=== PATIENT | male | born 1945 | race Caucasian/White ===

== ENCOUNTER → 2020-01-19 12:04 | Outpatient (BNVA) | payer MEDICARE, SELFPAY | PROVIDERS: PCP Internal Medicine; Visit Provider Internal Medicine Cardiovascular Disease | DX: I25.10 Atherosclerotic heart disease of native coronary artery without angina pectoris (principal); I35.1 Nonrheumatic aortic (valve) insufficiency; I71.2 Thoracic aortic aneurysm, without rupture; Z79.82 Long term (current) use of aspirin; Z79.899 Other long term (current) drug therapy; Z95.5 Presence of coronary angioplasty implant and graft | CPT/HCPCS: 93005; 99212 ==

== ENCOUNTER → 2020-02-07 12:47 | Outpatient (REF) | payer MEDICARE, SELFPAY ==
--- NOTE | 2020-02-07 12:49 | CA_ITS ---
Transthoracic Echocardiogram Patient (Last, First, Middle): Tito Roque L Gender: Male Date of : 1945 Age: 75 Procedure Date: 02/07/2020 Procedure Type: Transthoracic Echocardiogram Location: OP Height: 172.72 cm Weight: 65.77 kg BSA: 1.78 m2 Heart Rate: bpm BP: 124 / 58 mmHg Help Desk Analyst: Referring MD: Francis Bell MD Symptoms: I35.1 - Nonrheumatic aortic (valve) insufficiency Study Quality: Fair ECG Rhythm: Sinus Conclusions: - The left ventricular systolic function is moderately decreased. The visually estimated ejection fraction is between 30-35%. - Globally hypokinetic with regional variation. The basal inferolateral segment is hypokinetic. The basal inferior segment is akinetic. - There is mild to moderate aortic valve regurgitation. - There is mild dilatation of the sinuses of Valsalva measuring 3.60 cm and mild dilatation of the ascending aorta measuring 4.20 cm. Findings Left Ventricle Normal left ventricular cavity size. There is mildly increased left ventricular wall thickness. The left ventricular systolic function is moderately decreased. The visually estimated ejection fraction is between 30 35%. There is evidence of regional wall motion abnormalities. E/E prime ratio is <8, consistent with normal filling pressures. Evidence suggests grade I (mild) diastolic dysfunction. Globally hypokinetic with regional variation. Wall Motion Rest Echo Findings The basal inferolateral segment is hypokinetic. The basal inferior segment is akinetic. Right Ventricle Normal right ventricular cavity size and systolic function. Atria The left atrium is mildly dilated. The right atrium is normal in size. Aortic Valve There is a normal trileaflet aortic valve. There is no aortic valve stenosis. There is mild to moderate aortic valve regurgitation. Mitral Valve There is mild mitral annular calcification. There is mild mitral valve regurgitation. There is no mitral valve stenosis. Pulmonic Valve The pulmonic valve was not well visualized. Tricuspid Valve Normal tricuspid valve structure. There is trace tricuspid valve regurgitation. The pulmonary artery systolic pressure is normal. Great Vessels There is mild dilatation of the sinuses of Valsalva measuring 3.60 cm and mild dilatation of the ascending aorta measuring 4.20 cm. Venous The inferior vena cava was not well visualized. Pericardium/Pleural There is no evidence of pericardial effusion. Prior Study Comparison Changes noted compared to prior study dated: 01/11/2019. LVEF is diminished. Measurements 2D Linear Measurements IVSd: 1.23 0.6-0.9/0.6-1.0 cm LVIDd: 4.80 3.9-5.3/4.2-5.9 cm LVIDd Index: 2.70 2.4-3.2/2.2-3.1 cm/m2 LVIDs: 2.97 2.0-3.6 cm LVPWd: 1.22 0.7-1.1 cm Ao Root: 3.50 2.1-3.5 cm LA Diam: 4.30 2.7-3.8/3.0-4.0 cm LAIDs Index: 2.42 1.5-2.3 cm/m2 LV Mass: 281.31 67-162/88-224 g LV Mass Index: 158.04 43-95/49-115 g/m2 LVOT Diam: 2.10 3.0+(-)1.3 cm 2D Systolic Function EF 4C: 33.80 >55% EF 2C: 27.10 >55% EF BiP: 29.30 >55% Mitral Valve MV Pk E: 0.40 MV PK A: 0.99 MV Decel Time: 120.00 E/A: 0.40 E'Lateral: 4.25 E'Medial: 5.22 E/E' Med: 7.60 E/E' Lat: 9.40 PHT: 35.00 MVA PHT: 6.29 Decel Oliver: 3.32 Aortic Valve AoV Pk Adrien: 1.31 AoV Mn Adrien: 0.88 AoV VTI: 0.28 AoV Pk Grad: 7.00 Aov Mn Grad: 4.00 EMILY Cont.VTI: 2.67 AI Pk Adrien: 3.72 AI Oliver: 1.88 LVOT LVOT Pk Adrien: 1.06 LVOT Mn Adrien: 0.78 LVOT VTI: 0.21 LVOT Pk Grad: 4.00 LVOT Mn Grad: 3.00 LVOT Diam: 2.10 LVOT Area: 3.46 Diastolic Function MV Pk E: 0.40 MV Pk A: 0.99 E/A: 0.40 E'Medial: 5.22 E/E' Med: 7.60 E' Laterial: 4.25 E/E' Lat: 9.40 Tricuspid Valve TR Pk Adrien: 2.00 TR Pk Grad: 16.00 RA Press: 3.00 RVSP: 19.00 Great Vessels Aorta Ao Root-2D: 3.50 2.0-3.7 cm Sinus of Valsalva: 3.60 2.0-3.5 cm Ao Asc: 4.20 2.1-3.4 cm Pulmonary Valve PV Pk Adrien: 0.71 Peak PV Grad: 2.00 Updated in Other Vendor System with Status of Final Leon Alvarez MD electronically signed on 02/10/2020 12:26:59 PM with status of Final
== END ==
LOC: HO.CARD 12:47
PROVIDERS: PCP Internal Medicine; Visit Provider Internal Medicine Cardiovascular Disease
DX: I25.10 Atherosclerotic heart disease of native coronary artery without angina pectoris (principal); I35.1 Nonrheumatic aortic (valve) insufficiency; I71.2 Thoracic aortic aneurysm, without rupture
CPT/HCPCS: 93306

== ENCOUNTER → 2020-03-29 14:51 | Outpatient (BNVA) | payer MEDICARE, SELFPAY | PROVIDERS: PCP Internal Medicine; Visit Provider Internal Medicine Cardiovascular Disease | DX: I25.5 Ischemic cardiomyopathy (principal); I25.10 Atherosclerotic heart disease of native coronary artery without angina pectoris; I35.1 Nonrheumatic aortic (valve) insufficiency; I71.2 Thoracic aortic aneurysm, without rupture | CPT/HCPCS: Q3014 ==

== ENCOUNTER → 2020-04-17 15:02 | Outpatient (BNVA) | payer MEDICARE, SELFPAY | PROVIDERS: PCP Internal Medicine; Visit Provider Internal Medicine Cardiovascular Disease | DX: I25.5 Ischemic cardiomyopathy (principal) | CPT/HCPCS: Q3014 ==

== ENCOUNTER → 2020-04-18 11:47 | Outpatient (BNVA) | payer MEDICARE, SELFPAY | PROVIDERS: PCP Internal Medicine; Visit Provider Internal Medicine | DX: Z13.89 Encounter for screening for other disorder (principal) | CPT/HCPCS: Q3014 ==

== ENCOUNTER 2020-04-27 12:12 | Outpatient (REF) | payer MEDICARE, SELFPAY ==
[2020-04-27 16:31] LABS: MANUAL DIFF FLAG NO
[2020-04-27 16:36] LABS: Basophils Percent Auto 0.4 % (0-2); Eosinophils Absolute Auto 0.1 X10*3/uL (0.0-0.4); Eosinophils Percent Auto 0.9 % (0-4); Hematocrit 45.1 % (42-52); Hemoglobin 15.1 g/dl (14.0-18.0); Imm Gran Abs Auto 0.02 X10*3/uL (0.00-0.03); Imm Gran Pct Auto 0.3 % (0.0-0.4); Lymphocytes Absolute Auto 1.5 X10*3/uL (1.2-4.9); Lymphocytes Percent Auto 21.1 % (20-40); Mean Corpuscular HGB Conc 33.5 g/dl (31.0-36.0); Mean Corpuscular Volume 89.7 fL (80-98); Mean Platelet Volume 11.3 fL (9.4-12.4); Monocytes Absolute Auto 0.3 X10*3/uL (0.1-1.2); Monocytes Percent Auto 4.7 % (2-11); Neutrophils Absolute Auto 5.1 X10*3/uL (2.0-8.3); Neutrophils Percent Auto 72.6 % (45-73); Platelet Count 249 X10*3/uL (160-400); Red Blood Count 5.03 X10*6/uL (4.60-5.80); Red Cell Distribution Width 14.3 % (11.0-16.0); White Blood Count 7.1 X10*3/uL (4.8-10.8)
[2020-04-27 17:03] LABS: Anion Gap 12 (12-20); Blood Urea Nitrogen 15 mg/dL (9-16); Calcium 8.3 mg/dL (8.4-10.2); Carbon Dioxide 27 mmol/L (22-29); Chloride 104 mmol/L (96-108); Estimated Glomerular Filt Rate 54; Glucose Random 82 mg/dL (60-115); Potassium 3.2 mmol/L (3.3-5.1); Sodium 140 mmol/L (135-145)
[2020-04-27 17:22] LABS: Prostate Specific Antigen 0.37 ng/mL (<0.05-4.0)
[2020-04-28 19:07] LABS: Follicle Stimulating Hormone 0.7 mIU/mL (1.6-8.0); Lutenizing Hormone 0.2 mIU/mL (1.6-15.2)
[2020-04-30 18:12] LABS: Sex Hormone Binding Globulin 72 nmol/L (22-77)
[2020-05-04 13:22] LABS: Testosterone, Total 798 ng/dL (250-1100)
== END 2020-04-27 12:13 | disposition home or self-care (01) ==
LOC: HO.HMGCLDS 12:12
PROVIDERS: Absent Provider Internal Medicine; PCP Internal Medicine; Visit Provider Internal Medicine
DX: Z00.00 Encounter for general adult medical examination without abnormal findings (principal); R51.9 Headache, unspecified; E29.1 Testicular hypofunction; Z12.5 Encounter for screening for malignant neoplasm of prostate
CPT/HCPCS: 36415; 80048; 83001; 83002; 84153; 84270; 84402; 84403; 85025

== ENCOUNTER 2020-11-20 13:01 | Outpatient (REF) | payer MEDICARE, SELFPAY ==
[2020-11-20 14:31] LABS: Anion Gap 13 (12-20); Blood Urea Nitrogen 15 mg/dL (9-16); Calcium 8.8 mg/dL (8.4-10.2); Carbon Dioxide 22 mmol/L (22-29); Chloride 107 mmol/L (96-108); Estimated Glomerular Filt Rate 52; Glucose Random 79 mg/dL (60-115); Potassium 3.7 mmol/L (3.3-5.1); Sodium 138 mmol/L (135-145)
[2020-11-20 14:54] LABS: Free T4 (Free Thyroxine) 0.69 ng/dL (0.71-1.85); Thyroid Stimulating Hormone 28.88 uIU/mL (0.32-4.0)
[2020-11-21 16:21] LABS: Triiodothyronine T3 Total 49 ng/dL (76-181)
[2020-11-23 10:17] LABS: Follicle Stimulating Hormone <0.7 mIU/mL (1.6-8.0); Lutenizing Hormone <0.2 mIU/mL (1.6-15.2); Prolactin Undiluted 30.2 ng/mL (2.0-18.0)
[2020-11-24 04:32] LABS: Sex Hormone Binding Globulin 82 nmol/L (22-77)
[2020-11-25 13:45] LABS: Testosterone, Free 79.3 pg/mL (30.0-135.0); Testosterone, Total 853 ng/dL (250-1100)
== END 2020-11-20 13:02 | disposition home or self-care (01) ==
LOC: HO.LAB 13:01
PROVIDERS: PCP Internal Medicine; Visit Provider Internal Medicine
DX: E23.0 Hypopituitarism (principal)
CPT/HCPCS: 36415; 80048; 83001; 83002; 84146; 84270; 84402; 84403; 84439; 84443; 84480

== ENCOUNTER 2020-12-19 15:17 | Outpatient (REF) | payer MEDICARE, SELFPAY ==
[2020-12-19 17:03] LABS: Cortisol Random 24.7 ug/dL
== END 2020-12-19 15:18 | disposition home or self-care (01) ==
LOC: HO.LAB 15:17
PROVIDERS: PCP Internal Medicine; Visit Provider Internal Medicine
DX: E23.0 Hypopituitarism (principal)
CPT/HCPCS: 36415; 82533

== ENCOUNTER → 2021-01-16 10:19 | Outpatient (BNVA) | payer MEDICARE, SELFPAY | PROVIDERS: PCP Internal Medicine; Visit Provider Internal Medicine | CPT/HCPCS: Q3014 ==

== ENCOUNTER 2021-08-07 10:15 | Outpatient (REF) | payer MEDICARE, SELFPAY ==
[2021-08-07 11:35] LABS: Anion Gap 15 (12-20); Blood Urea Nitrogen 17 mg/dL (9-16); Calcium 9.2 mg/dL (8.4-10.2); Carbon Dioxide 21 mmol/L (22-29); Chloride 105 mmol/L (96-108); Estimated Glomerular Filt Rate 49; Glucose Random 77 mg/dL (60-115); Potassium 3.8 mmol/L (3.3-5.1); Sodium 137 mmol/L (135-145)
[2021-08-07 11:59] LABS: Free T4 (Free Thyroxine) 0.99 ng/dL (0.71-1.85); Thyroid Stimulating Hormone 3.09 uIU/mL (0.32-4.0)
[2021-08-07 12:06] LABS: Osmolality, Serum 286 mosm/kg (281-305)
[2021-08-07 12:39] LABS: Cortisol Random 21.1 ug/dL
[2021-08-08 23:31] LABS: Sex Hormone Binding Globulin 69 nmol/L (22-77)
[2021-08-09 02:55] LABS: Triiodothyronine T3 Total 51 ng/dL (76-181)
[2021-08-11 15:56] LABS: IGF-1 (Somatomedin C) 15 ng/mL (34-245); IGF-1 Z Score (Male) -3.2 SD (-2.0 - +2.0)
[2021-08-13 10:12] LABS: Follicle Stimulating Hormone 1.3 mIU/mL (1.6-8.0)
[2021-08-13 10:13] LABS: Lutenizing Hormone <0.2 mIU/mL (1.6-15.2); Prolactin Undiluted 21.4 ng/mL (2.0-18.0)
[2021-08-16 11:05] LABS: Testosterone, Total 961 ng/dL (250-1100)
== END 2021-08-07 10:16 | disposition home or self-care (01) ==
LOC: HO.LAB 10:15
PROVIDERS: PCP Internal Medicine; Referring Provider Internal Medicine; Visit Provider Internal Medicine
DX: E23.0 Hypopituitarism (principal)
CPT/HCPCS: 36415; 80048; 82024; 82533; 83001; 83002; 83930; 84146; 84270; 84305; 84402; 84403; 84439; 84443; 84480

== ENCOUNTER → 2021-09-18 11:06 | Outpatient (BNVA) | payer MEDICARE, SELFPAY | PROVIDERS: PCP Internal Medicine; Visit Provider Internal Medicine | DX: D35.2 Benign neoplasm of pituitary gland (principal); E23.0 Hypopituitarism; E22.1 Hyperprolactinemia; E27.49 Other adrenocortical insufficiency; E03.8 Other specified hypothyroidism; Z79.899 Other long term (current) drug therapy | CPT/HCPCS: Q3014 ==

== ENCOUNTER 2022-04-21 08:26 | Outpatient (REF) | payer MEDICARE, SELFPAY ==
[2022-04-21 09:00] LABS: Hematocrit 44.2 % (42.0-52.0); Hemoglobin 14.9 g/dl (14.0-18.0)
[2022-04-21 09:18] LABS: Osmolality, Serum 292 mosm/kg (281-305)
[2022-04-21 09:26] LABS: Anion Gap 15 (12-20); Blood Urea Nitrogen 16 mg/dL (9-16); Calcium 8.8 mg/dL (8.4-10.2); Carbon Dioxide 22 mmol/L (22-29); Chloride 106 mmol/L (96-108); Estimated Glomerular Filt Rate 56; Glucose Random 88 mg/dL (60-115); Potassium 4.1 mmol/L (3.3-5.1); Sodium 139 mmol/L (135-145)
[2022-04-21 09:43] LABS: Cortisol Random 22.7 ug/dL; Free T4 (Free Thyroxine) 1.29 ng/dL (0.71-1.85); Prostate Specific Antigen 0.29 ng/mL (<0.05-4.0); Thyroid Stimulating Hormone 4.91 uIU/mL (0.32-4.0)
[2022-04-23 16:04] LABS: Adrenocorticotropic Hormone 6 pg/mL (6-50)
[2022-04-23 18:33] LABS: Sex Hormone Binding Globulin 84 nmol/L (22-77)
[2022-04-23 19:59] LABS: Triiodothyronine T3 Total 72 ng/dL (76-181)
[2022-04-24 18:08] LABS: Lutenizing Hormone <0.2 mIU/mL (1.6-15.2); Prolactin Undiluted 18.6 ng/mL (2.0-18.0)
[2022-04-26 16:08] LABS: IGF-1 (Somatomedin C) 38 ng/mL (34-245); IGF-1 Z Score (Male) -1.8 SD (-2.0 - +2.0)
[2022-04-29 11:44] LABS: Testosterone, Free 22.4 pg/mL (30.0-135.0); Testosterone, Total 345 ng/dL (250-1100)
== END 2022-04-21 08:27 | disposition home or self-care (01) ==
LOC: HO.LAB 08:26
PROVIDERS: PCP Internal Medicine; Visit Provider Internal Medicine
DX: Z12.5 Encounter for screening for malignant neoplasm of prostate (principal); D35.2 Benign neoplasm of pituitary gland
CPT/HCPCS: 36415; 80048; 82024; 82533; 83001; 83002; 83930; 84146; 84153; 84270; 84305; 84402; 84403; 84439; 84443; 84480; 85014; 85018

== ENCOUNTER → 2022-04-23 13:01 | Outpatient (BNVA) | payer MEDICARE, SELFPAY | PROVIDERS: PCP Internal Medicine; Visit Provider Internal Medicine | DX: D35.2 Benign neoplasm of pituitary gland (principal); E23.0 Hypopituitarism; E22.1 Hyperprolactinemia; E27.49 Other adrenocortical insufficiency; E03.8 Other specified hypothyroidism | CPT/HCPCS: 99212 ==

== ENCOUNTER 2022-05-09 13:36 | Outpatient (REF) | payer MEDICARE, SELFPAY ==
--- NOTE | ~2022-05-09 | MM_ITS ---
EXAMINATION: BONE DENSITOMETRY CLINICAL INDICATION: Hypopituitarism. COMPARISON: None (current study represents initial baseline exam). TECHNIQUE: Using a [employer] DXA System (software version: 13.1) manufactured by [employer], dual-energy x-ray absorptiometry was performed of the lumbar spine, left hip, and left forearm radius 33%. The images are of good technical quality. Summary results are attached. FINDINGS: AP SPINE L1-L2 (excluding L3 and L4): The data of L1-L4 has been changed to exclude the L3 and L4 vertebral bodies, because degenerative changes at these levels may cause overestimation of lumbar spine density. BMD 0.606 g/cm2, Z-score -3.8, T-score -4.9, osteoporosis. LEFT FEMUR, NECK: BMD 0.631 g/cm2, Z-score -1.6, T-score -3.4, osteoporosis. LEFT FEMUR, TOTAL: BMD 0.636 g/cm2, Z-score -2.0, T-score -3.2, osteoporosis. LEFT FOREARM RADIUS 33%: BMD 0.602 g/cm2, Z-score -2.9, T-score 3.9, osteoporosis. IDENTIFIED RISK FACTORS: Height loss, secondary osteoporosis. HISTORY OF FRACTURE: None listed. MEDICATIONS: Vitamin D. MM/XR DEXA axial skeleton IMPRESSION: 1. DIAGNOSIS: Osteoporosis based on the lowest T-score value of -4.9 in the lumbar spine applying World Health Organization criteria. 2. 10-YEAR FRACTURE RISK PREDICTION, FRAX: According to the guidelines, FRAX calculation should only be performed on patients in the osteopenia bone density category. Therefore, FRAX was not performed on this patient. 3. Treatment Recommendations: NOF guidelines recommend consideration for treatment in postmenopausal women and men age 50 and older presenting with the following: -A hip or vertebral (clinical or morphometric) fracture. -T-score less than or equal to -2.5 at the femoral neck or spine after appropriate evaluation to exclude secondary causes. -Low bone mass at the hip or spine and a 10-year fracture probability by FRAX of greater than or equal to 3% for hip fracture or greater than or equal to 20% for major osteoporotic fracture based on the [place] adapted WHO algorithm. 4. Other Recommendations: All treatment decisions require clinical judgment and consideration of individual patient factors, including patient preferences, comorbidities, previous drug use, risk factors not captured in the FRAX model (e.g. frailty, falls, vitamin D deficiency, increased bone turnover, interval significant decline in bone density) and possible under or overestimation of fracture risk by FRAX. Additional medical evaluation for secondary cause of low bone mineral density may be appropriate. FUTURE SCAN RECOMMENDATION: People with diagnosed cases of osteoporosis or at high risk for fracture should have regular bone mineral density tests. For patients eligible for Medicare, routine testing is allowed once every 2 years. The testing frequency can be increased to one year for patients who have rapidly progressing disease, those who are receiving or discontinuing medical therapy to restore bone mass, or have additional risk factors.
== END 2022-05-09 13:37 | disposition home or self-care (01) ==
LOC: HO.MAMMO 13:36
PROVIDERS: PCP Internal Medicine; Visit Provider Nurse Practitioner Gerontology
DX: Z13.820 Encounter for screening for osteoporosis (principal); E23.0 Hypopituitarism
CPT/HCPCS: 77080

== ENCOUNTER 2022-09-29 14:05 | Outpatient (AMB) | payer MEDICARE, SELFPAY ==
--- NOTE | 2022-09-29 14:09 | A.OFFVIS_ITS ---
Intake Vital Signs 09/29/22 14:10 Height 5 ft 5 in Weight 130 lb 1.164 oz BMI 21.6 BP 140/60 H Blood Pressure Location Rt brachial Position Sitting Pulse 69 Pulse Oximetry (%) 97 Intake Visit Reasons: c/o dizziness Intake Note: c/o dizzieness Data Warehouse Developer Required: No Allergies metoprolol [From Toprol XL] Allergy (Unknown, Verified 09/29/22 14:22) tachycardia Medication List - Last Reconciled 09/29/22 by LD Jimenez aspirin (Adult Low Dose Aspirin) 81 mg PO DAILY bupropion HCl (smoking deter) 150 mg PO DAILY hydrocortisone 10 mg PO q AM and 5 mg PO q PM PO; 30 days levothyroxine 100 mcg PO DAILY 30 days miscellaneous medical supply 1 ea miscellaneous DAILY testosterone 30 mg/actuation (1.5 mL) 4 pumps transdermal DAILY 30 days HPI c/o dizziness HPI Details Tito is a 77-year-old male with past medical history of hyperlipidemia, CAD, remote coronary stent, ischemic cardiomyopathy who presents for follow-up. Last prior visit to our office was 04/17/2020. On last visit a stress test was ordered however not completed for unclear reason. Today he reports that he has been having some intermittent episodes of dizziness. He says when he lays down he feels better. No history of vertigo. No presyncope, syncope, falls. He will get random pains in his chest that improve in a laying down position. He admits to being mostly sedentary. He does have shortness of breath with exertion. No PND, orthopnea or edema. Taking meds as directed. Tells me [place] and out of his home of 40 years. This created a lot of stress and physical activity which took a lot out of him. He denies any hospitalizations or ER trips in the last 2 years. [facility] Medical History Aortic valve regurgitation CAD (coronary artery disease) Central hypothyroidism Hyperlipidemia Hyperprolactinemia Hypogonadism Hypogonadism in male Hypogonadotropic hypogonadism Ischemic cardiomyopathy Panhypopituitarism Pituitary macroadenoma Secondary adrenal insufficiency Thoracic aortic aneurysm Surgical History History of appendectomy History of cholecystectomy History of coronary artery stent placement History of gastric surgery History of nephrolithotomy with removal of calculi Family History Father Pulmonary embolism Mother CAD (coronary artery disease) Glaucoma Social History Housing: Other Housing Other:: moblie home Alcohol intake: never Patient Tobacco Use Status: Never used Tobacco e-Cigarette/Vaping Use: Never Used Second Hand Smoke Exposure: No service: No Current occupational status: disabled Cognitive needs: No Hearing needs: No Vision needs: No Review of Systems Const All systems reviewed & are unremarkable except as noted in HPI and below ENT Reports dizziness Card Denies chest pain, Denies chest pain at rest, Denies chest pain with activity, Denies rapid heart rate, Denies pedal edema, Denies edema, Denies leg edema, Denies lightheadedness, Denies palpitations, Denies dyspnea, Denies dyspnea on exertion and Denies orthopnea Resp Denies cough, Denies dyspnea and Denies dyspnea on exertion GI Denies hematochezia and Denies change in stool character Musc Denies abnormal gait, Reports limited range of motion, Reports muscle cramps, Denies muscle weakness, Denies numbness, Denies radiating pain into limb, Denies stiffness and Denies tingling Neuro Denies abnormal gait, Reports dizziness, Denies numbness and Denies tingling Endo Denies palpitations Physical Exam Vital Signs: Last Vital Signs Pulse 69 09/29/22 14:10 BP 140/60 H 09/29/22 14:10 Pulse Ox 97 09/29/22 14:10 BMI result Body Mass Index 21.6 Const Other: Frail elderly male General: cooperative and no acute distress Orientation/consciousness: patient oriented x3 Neck Neck: Yes normal visual inspection Chest Chest palpation & inspection: normal inspection of the chest Resp Effort & Inspection: normal respiratory effort Auscultation: clear to auscultation bilaterally, no crackles, no rales, no rhonchi and no wheezes Cardio Jugular venous distension: no JVD Rate: regular rate Rhythm: regular rhythm Heart sounds: S1 normal heart sound present, S2 normal heart sound present, no murmurs and no rubs Skin Other: Very dry and flaky Neuro General: patient oriented x3 Extrem General: Yes normal to inspection Psych Appearance: grossly normal Mental Status: mental status grossly normal Speech and movement: Normal speech and movement present Office Procedures EKG Details: Today, read by me, normal sinus rhythm with sinus arrhythmia, anterior Q-waves, can not rule out prior septal infarct, moderate voltage criteria for LVH, rate 69, QTC 437 millisecond [id number], Complete Assessment & Plan Assessment & Plan (1) Ischemic cardiomyopathy: Code(s): I25.5 - Ischemic cardiomyopathy Plan: History of ischemic cardiomyopathy. Last echo 02/07/2020 with EF 30-35%, basal inferior lateral hypokinesis and basal inferior akinetic. A nuclear stress test was ordered at that time however not completed by patient. At this time he is reporting atypical sounding chest discomfort. No hospital admissions in the last 2 years. He is not fluid overloaded on examination. He admits to being mostly sedentary. Will update echocardiogram and nuclear stress test. Plan to call him with results. Medication management to be determined once test results are known. Prior notes indicate he was intolerant to metoprolol and lisinopril in the past. Cardiology follow-up in 4-6 weeks, sooner if needed. (2) CAD (coronary artery disease): Code(s): I25.10 - Atherosclerotic heart disease of [place] coronary artery without angina pectoris Plan: History of CAD with remote LAD stenting. He is reporting some atypical sounding chest discomfort. EKG done today showing sinus rhythm with sinus arrhythmia, no acute ST or T-wave abnormalities, septal Q-waves present. Overall unchanged from prior EKG. He is on daily aspirin. Is not on statin for unclear reason. Last cholesterol check in our system done 12/15/2019 showed LDL 67. Will need to update fasting lipid profile. Signs and symptoms of angina reviewed with him. Cardiac testing as above (3) Thoracic aortic aneurysm: Code(s): I71.2 - Thoracic aortic aneurysm, without rupture Plan: Last echo showed thoracic aorta dilation 4.2 cm. Will be rechecking echo as above. (4) Stented coronary artery: Comment: Remote LAD Code(s): Z95.5 - Presence of coronary angioplasty implant and graft Plan: Remote history of LAD stent. No anginal sounding symptoms (5) Aortic valve regurgitation: Code(s): I35.1 - Nonrheumatic aortic (valve) insufficiency Plan: Last echo showing [id number] aortic valve regurgitation. Repeat echo as above Orders: Orders CA lexiscan stress w braydon 09/29/22 I25.10 - Atherosclerotic heart disease of [place] coronary artery without angina pectoris, I25.5 - Ischemic cardiomyopathy CA echo transthoracic complete 09/29/22 I25.10 - Atherosclerotic heart disease of [place] coronary artery without angina pectoris, I25.5 - Ischemic cardiomyopathy NM cardiolite stress test 09/29/22 I25.10 - Atherosclerotic heart disease of [place] coronary artery without angina pectoris, I25.5 - Ischemic cardiomyopathy Coding Level of Care Code Est Pt Level 4 (78849) Diagnoses Ischemic cardiomyopathy I25.5 CAD (coronary artery disease) I25.10 Thoracic aortic aneurysm I71.2 Stented coronary artery Z95.5 Aortic valve regurgitation I35.1 CPT Codes EKG - CPT: [id number], Complete ([id number]) Time Spent (min) 26 Comment Chart review, documentation, interview, assessment
[2022-09-29 14:10] VITALS: BP 140/60; PULSE 69; O2SAT 97; BMI 21.6
== END 2022-09-29 14:52 | disposition home or self-care (01) ==
PROVIDERS: PCP Internal Medicine; Visit Provider Nurse Practitioner Family
DX: R42 Dizziness and giddiness (principal)
CPT/HCPCS: 93010; 99214

== ENCOUNTER → 2022-09-29 14:05 | Outpatient (BNVA) | payer MEDICARE, SELFPAY | PROVIDERS: PCP Internal Medicine; Visit Provider Nurse Practitioner Family | DX: I25.5 Ischemic cardiomyopathy (principal); I25.10 Atherosclerotic heart disease of native coronary artery without angina pectoris; I10 Essential (primary) hypertension; I71.20 Thoracic aortic aneurysm, without rupture, unspecified; I35.1 Nonrheumatic aortic (valve) insufficiency; R55 Syncope and collapse; Z95.5 Presence of coronary angioplasty implant and graft | CPT/HCPCS: 93005; 99212 ==

== ENCOUNTER → 2022-10-21 10:00 | Outpatient (REF) | payer MEDICARE, SELFPAY ==
--- NOTE | ~2022-10-21 | NM_ITS ---
Myocardial perfusion study Indication: Ischemic cardiomyopathy to evaluate for myocardial ischemia Technique: The patient was brought in for a Lexiscan perfusion study on 10/21/2022. Patient performed low-level exercise and was injected 0.4 mg of Lexiscan intravenously. Within a minute of injection, 25 mCi of sestamibi was given intravenously. Images were obtained using the SPECT gamma camera interlaced with the gating device. Images were obtained in supine position. Resting perfusion study was performed on 10/23/2022. Patient was administered 25 mCi of sestamibi intravenously at rest. Images were then obtained in supine position. Images obtained with and without CT attenuation. Total DLP 122 mGy-cm. Images were processed with the software and compared side to side in short axis, horizontal long axis and vertical long axis views. Findings: The stress perfusion study showed non attenuated images show moderately reduced uptake in the inferior wall of the LV myocardium as well as mildly reduced uptake in the chest and inferolateral wall of the LV myocardium and mildly reduced uptake in the basal lateral wall of the LV myocardium. Attenuation corrected images show mildly to moderately reduced uptake in the inferoapical as well as the basal lateral apical wall of the LV myocardium. The gated study shows mildly reduced LV systolic function with calculated LVEF of 45%. LV cavity is mildly dilated size. The gated study shows reduced wall thickening and contraction of basal inferior and inferolateral segments. Resting study shows no significant change in perfusion at stress minor study. Gating at rest reveals basal inferior and inferolateral wall motion abnormality with ejection fraction at 52%. The findings are consistent with no reversible defect suggestive of ischemia. Likely nontransmural infarct of the basal inferior and inferolateral wall.. NM/NM cardiolite stress test Impression: 1. Myocardial perfusion imaging study shows no reversible ischemia 2. Gated LVEF is 45% 3. Transient ischemic dilatation not present EKG is nondiagnostic for ischemia
--- NOTE | 2022-10-21 10:05 | CA_ITS ---
Acquisition Time: 2022-10-21 10:03:32 Total Exercise Time: 00:02:00 Test Indications: CAD Medications: ASA BUPROPION LEVOTHYROXINE TESTOSTERONE Protocol: LEXISCAN Max HR: 122 BPM 84% of Pred: 145 BPM Max BP: 142/074 mmHG Max Work Load: 1.0 METS Pharmacological stress test with Lexiscan injection while sitting and kicking his legs, with mild SOB, without chest discmfort, with isolated PVCs and PACs, with normotensive response to injection, without EKG changes. Aminophylline 75mg IVP given to reverse Lexiscan. Nuclear images pending. Test reviewed with Dr. Alvarez. Referred By: Iqra Maya Overread By: Danay Sanchez
== END ==
LOC: HO.CARD 10:00
PROVIDERS: Visit Provider Nurse Practitioner Family
DX: I25.10 Atherosclerotic heart disease of native coronary artery without angina pectoris (principal); I25.5 Ischemic cardiomyopathy
CPT/HCPCS: 78452; 93017; A9500; J0280; J2785

== ENCOUNTER → 2022-10-21 10:05 | Outpatient (BNV) | payer MEDICARE, SELFPAY | PROVIDERS: Visit Provider Nurse Practitioner | DX: I25.5 Ischemic cardiomyopathy (principal) | CPT/HCPCS: 78452; 93016; 93018 ==

== ENCOUNTER 2022-10-22 09:09 | Outpatient (AMB) | payer MEDICARE, SELFPAY ==
--- NOTE | 2022-10-22 09:09 | MHC.OFFVIS ---
Intake Intake Visit Reasons: F/U Pituitary macroadenoma/needs 40 mins. Allergies metoprolol [From Toprol XL] Allergy (Unknown, Verified 10/22/22 09:09) tachycardia PFSH Medical History Aortic valve regurgitation CAD (coronary artery disease) Central hypothyroidism Hyperlipidemia Hyperprolactinemia Hypogonadism Hypogonadism in male Hypogonadotropic hypogonadism Ischemic cardiomyopathy Panhypopituitarism Pituitary macroadenoma Secondary adrenal insufficiency Thoracic aortic aneurysm Surgical History History of appendectomy History of cholecystectomy History of coronary artery stent placement History of gastric surgery History of nephrolithotomy with removal of calculi Family History Father Pulmonary embolism Mother CAD (coronary artery disease) Glaucoma Social History Housing: Other Housing Other:: moblie home Alcohol intake: never Patient Tobacco Use Status: Never used Tobacco e-Cigarette/Vaping Use: Never Used Second Hand Smoke Exposure: No service: No Current occupational status: disabled Cognitive needs: No Hearing needs: No Vision needs: No Telehealth Telehealth Location of provider rendering services: practice address Location of patient: address on file Patient Identification confirmed using: Name, : Yes Telehealth method: voice only Patient verbally consented to treatment: Yes Patient verbally consented to billing insurance company: Yes Patient informed of any privacy concerns related to visit: Yes Coding Diagnoses
--- NOTE | 2022-10-22 09:10 | MHC.OFFVIS ---
Intake Intake Visit Reasons: F/U Pituitary macroadenoma/needs 40 mins. Allergies metoprolol [From Toprol XL] Allergy (Unknown, Verified 10/22/22 09:10) tachycardia Medication List - Last Reconciled 10/22/22 by Pia Maldonado, aspirin (Adult Low Dose Aspirin) 81 mg PO DAILY bupropion HCl (smoking deter) 150 mg PO DAILY hydrocortisone Take 2 tabs every morning and 1 tab every evening orally daily; 30 days levothyroxine 100 mcg PO DAILY 30 days miscellaneous medical supply 1 ea miscellaneous DAILY testosterone 30 mg/actuation (1.5 mL) 4 pumps transdermal DAILY 30 days HPI HPI Comments History of Present Illness Details 76 YO Male with PMHx 3.3 cm sellar mass s/p resection, now with regrowth, with resultant panhypopituitarism who is seen in F/U. The patient had a large bilobed intra and suprasellar mass measuring 2.3 x 3.3 cm with mass effect on the optic chiasm which was diagnosed in 2014 after he presented with occular symptoms. He had resection of this mass in early 2015 at [facility] in [place], [place] by Dr. Agee. The complete mass was unable to be resected so he had stereotactic radiation therapy shortly after. He reports that this was a benign pituitary lesion, but unfortunately no path report is available. He was formerly followed by Batch Mixing Truck Driver Jian Rahamn at [facility]. He chose to switch to a different physician given proximity to his home. 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 He was started on Hydrocortisone 20 mg PO q am with 10 mg PO q pm. He was also started on Levothyroxine 100 mcg PO daily, and androgel supplementation. He was only able to continue the androgel for 3 months after which time it became too expensive for him, so he then remained off supplementation for 2 years. In mid 2018 he decreased his dose of Hydrocortisone to 10 mg q AM and 5 mg q PM. He thereafter began having episodes of LOC and orthostatic symptoms, as well as weight loss. He has had 4 trips to the ER due to LOC since that time. His dose of Hydrocortisone was never increased further, but the episodes of LOC did resolve spontaneously. His previous Batch Mixing Truck Driver recommended IM testosterone injections monthly, but the patient had adamantly refused this. He did have labs which revealed completely absent testosterone by his PCP, and he was subsequently referred to Endocrinology here at [facility]. Labs were repeated and confirmed absent testosterone levels and evidence of hypogonadotropic hypogonadism. He was started on Testosterone Education Sales Consultant Solution 90 mg daily (3 pumps of 30 mg/senior mechanical designer per shoulder every morning). He does take his Levothyroxine correctly, first thing in the morning on an empty stomach. He waits 1 hour to eat and at least 30 minutes to take his other medications. He does report being poorly compliant with this. He also had his Pituitary MRI repeated 12/30/18 which reveals regrowth of the sellar mass, now measuring 2.5 cm. There is no mention of compression of the optic apparatus. He was referred to his Neurosurgeon Dr. Agee, who he has been following with regularly. He then had a repeat MRI 01/11/2020 which revealed the mass now measuring 2.7 cm, and unchanged from prior. His repeat MRIs are ordered by his Neurosurgeon who he follows with regularly. Most recent 02/27/2022 revealing a 2.7 cm mass. He does mention that his energy level has improved since starting the Testosterone. He has had no further episodes of LOC. He denies any leg pain, blood clots, or shortness of breath. He denies any weak urinary stream or difficulty initiating urination. He reports that he does have his medical ID bracelet as well as his solucort emergency kit. 09/28/18 Total Testosterone <1 Free Testosterone = Unable to calculate MRI Brain 12/30/18 FINDINGS: The previously seen large sellar/suprasellar mass present on the March 06, 2015 exam has been resected. There is a heterogeneously enhancing recurrent/residual lesion measuring 2.5 x 1.0 x 1.9 cm which expands and fills the width of the sella and bulges into the medial aspect of the right cavernous sinus. The normal pituitary gland is not well resolved separate from this lesion but is possibly seen on series 10 image 03/17 to the left of midline. The infundibulum is thinned and inserts to the left of midline. The normal posterior pituitary bright spot is not seen. There is no mass effect on the optic apparatus. The cavernous segments of the bilateral internal carotid arteries are preserved. There is no acute infarct, hemorrhage, parenchymal mass, or extra-axial fluid collection. Postoperative findings of right pterional craniotomy are noted with some encephalomalacic changes seen in the right frontal lobe. 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 There is diffuse brain parenchymal volume loss with some commensurate prominence of the ventricles and sulci. Moderate foci of T2 hyperintensity are seen throughout the bilateral cerebral white matter most compatible with microangiopathy. No unexpected parenchymal enhancement is seen. A mild degree of pachymeningeal enhancement is seen about the right frontal convexity, presumably postoperative. The extracranial structures are within normal limits allowing for the postoperative findings. No paranasal sinus or mastoid fluid is seen. IMPRESSION: - Interval resection of large sellar/suprasellar mass seen on the March 06, 2015 and MRI. Residual/recurrent expansile enhancing lesion within the sella extending into the medial aspect of the right cavernous sinus which measures up to 2.5 cm. The pituitary gland is not well resolved separate from the lesion but is possibly seen in the left aspect of the sella as detailed above. The infundibulum is diffusely thinned. No mass effect on the optic apparatus. Cavernous carotid flow voids are well preserved. - Postoperative findings of right pterional craniotomy noted. - No acute intracranial abnormality. MRI Brain 03/06/15 FINDINGS: There is a bilobed intra- and suprasellar mass lesion that measures at least 2.3 (AP) x 3.3 (TV) x (SI) centimeters. This extends into the cavernous sinus on both sides with lateral displacement of the cavernous carotid arteries. There is significant mass effect on the optic chiasm, pre-and post chiasmatic optic nerves, hypothalamus, infundibulum, and anterior recess of the third ventricle. [place]q of Lou vessels are also displaced. Chronic small vessel ischemic changes are seen throughout the supratentorial white matter along with a small chronic lacunar infarct in the right cerebellum. Mild ventricular prominence probably reflects an element of central volume loss. No focal reduced diffusion is seen to suggest acute or subacute cerebral ischemia. No intracerebral edema, intra-axial blood products, midline shift, or extra-axial collection is visualized. The paranasal sinuses are well aerated. Labs: Laboratory Tests 04/21/22 04/21/22 04/21/22 08:57 08:57 08:57 Sodium 139 Potassium 4.1 Creatinine 1.25 Estimated GFR 56 Osmolality 292 Prostate Specific Ag 0.29 TSH 4.91 H Free T4 1.29 Random Cortisol ACTH Pending 04/21/22 08:57 Sodium Potassium Creatinine Estimated GFR Osmolality Prostate Specific Ag TSH Free T4 Random Cortisol 22.7 ACTH PFSH Medical History Aortic valve regurgitation CAD (coronary artery disease) Central hypothyroidism Hyperlipidemia Hyperprolactinemia Hypogonadism Hypogonadism in male Hypogonadotropic hypogonadism Ischemic cardiomyopathy Panhypopituitarism Pituitary macroadenoma Secondary adrenal insufficiency Thoracic aortic aneurysm Surgical History History of appendectomy History of cholecystectomy History of coronary artery stent placement History of gastric surgery History of nephrolithotomy with removal of calculi Family History Father Pulmonary embolism Mother CAD (coronary artery disease) Glaucoma Social History Housing: Other Housing Other[place] [facility] [place] Alcohol intake: never Patient Tobacco Use Status: Never used Tobacco e-Cigarette/Vaping Use: Never Used Second Hand Smoke Exposure: No service: No Current occupational status: disabled Cognitive needs: No Hearing needs: No Vision needs: No Assessment & Plan Assessment & Plan (1) Pituitary macroadenoma: Code(s): D35.2 - Benign neoplasm of pituitary gland Plan: He was diagnosed with a 3.3 cm sellar mass in 2014 and underwent resection at [facility]. No official path report was available, but he reports this was benign. He did have incomplete resection and received stereotactic radiation thereafter. We repeated MRI 12/30/18 which revealed regrowth to 2.5 cm, and now 2.7 cm. He has been following regularly with his Neurosurgeon Dr. Agee at [facility]. My staff has reached out to be sure he has F/U coming up. Will request most recent MRI. He denies headache or visual complaints currently. Visual daniel were assessed which are WNL. We will continue to monitor this. I spent 20 minutes in reviewing the record, seeing the patient and documenting in the medical record, including 5 minutes on the phone with the Patient. (2) Panhypopituitarism: Code(s): E23.0 - Hypopituitarism Plan: Patient with panhypopituitarism after his sellar mass resection. Please see individual sections for details. (3) Hyperprolactinemia: Code(s): E22.1 - Hyperprolactinemia Plan: Patient with hyperprolactinemia. I suspect this is stalk effect from his large sellar mass. No hook effect is present. He remains on testosterone supplementation. No dopamine agonist therapy is indicated for stalk effect. He did not repeat labs. He states he will do so later this month. I will call with results. (4) Hypogonadotropic hypogonadism: Code(s): E23.0 - Hypopituitarism Plan: Patient with hypogonadotropic hypogonadism. He was started on Testosterone Education Sales Consultant Solution 90 mg daily (3 pumps). He has not repeated labs. He will do so later this month and I will call with results. DXA revealed severe osteoporosis which I suspect is due to hypogonadism. We discussed this in detail and the risk of significant fracture without treatment. He verbalizes understanding of this risk but adamantly refuses treatment at this time. (5) Secondary adrenal insufficiency: Code(s): E27.49 - Other adrenocortical insufficiency Plan: Patient with secondary adrenal insufficiency. He remains on Hydrocortisone 10 mg PO q AM with 5 mg PO qPM. Electrolytes have remained WNL. Will continue with this dose. I reminded him of the importance of taking this as prescribed. I advised the Patient of sick day rules with taking double the steroid dose for a fever of up to 102 or a minor illness, and triple the dose for a fever >102, and to continue this higher dose for 3 days. If feeling better after 3 days the dose can be decreased to the normal daily dose. We discussed the need for Solucortef injection of 100 mg if the Patient is unable to tolerate PO, is nauseous or vomiting. We also discussed the need for high IV dose steroids if the Patient is to have surgery or any major procedure completed. He reports that he has his medical alert bracelet. (6) Central hypothyroidism: Code(s): E03.8 - Other specified hypothyroidism Plan: Patient remains on Levothyroxine 100 mcg PO daily. We have discussed the importance of taking this daily to avoid the development of profound hypothyroidism which can be fatal if it results in myxedema coma. He verbalizes understanding. I advised he repeat labs now. Telehealth Telehealth Location of provider rendering services: practice address Location of patient: address on file Patient Identification confirmed using: Name, : Yes Telehealth method: voice only Patient verbally consented to treatment: Yes Patient verbally consented to billing insurance company: Yes Patient informed of any privacy concerns related to visit: Yes Coding Level of Care Code Tele Est Pt Level 3 (18875) Diagnoses Pituitary macroadenoma D35.2 Panhypopituitarism E23.0 Hyperprolactinemia E22.1 Hypogonadotropic hypogonadism E23.0 Secondary adrenal insufficiency E27.49 Central hypothyroidism E03.8
== END 2022-10-22 09:10 | disposition home or self-care (01) ==
LOC: HO.ENCR 09:09
PROVIDERS: PCP Internal Medicine; Visit Provider Internal Medicine
DX: D35.2 Benign neoplasm of pituitary gland (principal); E23.0 Hypopituitarism; E22.1 Hyperprolactinemia; E27.49 Other adrenocortical insufficiency; E03.8 Other specified hypothyroidism
CPT/HCPCS: 99443

== ENCOUNTER → 2022-10-22 09:09 | Outpatient (BNVA) | payer MEDICARE, SELFPAY | PROVIDERS: PCP Internal Medicine; Visit Provider Internal Medicine ==

== ENCOUNTER → 2022-10-27 12:57 | Outpatient (REF) | payer MEDICARE, SELFPAY ==
--- NOTE | 2022-10-27 13:00 | CA_ITS ---
Transthoracic Echocardiogram Patient (Last, First, Middle): Tito Roque L Gender: Male Date of : 1945 Age: 77 Procedure Date: 10/27/2022 Procedure Type: Transthoracic Echocardiogram Location: OP Height: 170.18 cm Weight: 65.77 kg BSA: 1.76 m2 Heart Rate: bpm BP: 132 / 80 mmHg Observatory Director: Referring MD: Iqra Maya BOTTOM PRESSERTravonC Symptoms: I25.5 - Ischemic cardiomyopathy Study Quality: Fair ECG Rhythm: Sinus with extra beats Conclusions: - The left ventricular systolic function is moderate to severely decreased. The calculated ejection fraction is 30% by biplane method. - The inferolateral wall and basal inferior segment are akinetic. - There is mild aortic valve regurgitation. - There is mild mitral valve regurgitation. - There is mild dilatation of the ascending aorta measuring 4.50 cm. Findings Left Ventricle Normal left ventricular cavity size. There is mildly increased left ventricular wall thickness. The left ventricular systolic function is moderate to severely decreased. The calculated ejection fraction is 30% by biplane method. There is evidence of regional wall motion abnormalities. There is moderate global hypokinesis. Evidence suggests grade I (mild) diastolic dysfunction. Wall Motion Rest Echo Findings The inferolateral wall and basal inferior segment are akinetic. Right Ventricle Normal right ventricular cavity size and systolic function. Atria The left atrium is mildly dilated. The right atrium is normal in size. Aortic Valve The aortic valve was not well visualized. There is mild calcification of the aortic valve. There is no aortic valve stenosis. There is mild aortic valve regurgitation. Mitral Valve There is mild mitral annular calcification. There is mild mitral valve regurgitation. There is no mitral valve stenosis. Pulmonic Valve The pulmonic valve is likely normal. Tricuspid Valve Normal tricuspid valve structure. There is trace tricuspid valve regurgitation. There is no evidence of pulmonary hypertension. Great Vessels There is mild dilatation of the ascending aorta measuring 4.50 cm. Venous The inferior vena cava was not well visualized. Pericardium/Pleural There is no evidence of pericardial effusion. Prior Study Comparison Changes noted compared to prior study dated: 02/07/2020. Increase in ascending aortic size. Measurements 2D Linear Measurements IVSd: 1.20 0.6-0.9/0.6-1.0 cm LVIDd: 5.00 3.9-5.3/4.2-5.9 cm LVIDd Index: 2.84 2.4-3.2/2.2-3.1 cm/m2 LVIDs: 3.30 2.0-3.6 cm LVPWd: 1.20 0.7-1.1 cm Ao Root: 3.60 2.1-3.5 cm LA Diam: 3.80 2.7-3.8/3.0-4.0 cm LAIDs Index: 2.16 1.5-2.3 cm/m2 LV Mass: 291.43 67-162/88-224 g LV Mass Index: 165.59 43-95/49-115 g/m2 LVOT Diam: 2.50 3.0+(-)1.3 cm 2D Systolic Function EF 4C: 33.80 >55% EF 2C: 26.70 >55% EF BiP: 30.00 >55% Mitral Valve MV Pk E: 0.42 MV PK A: 1.00 MV Decel Time: 118.00 E/A: 0.40 E'Lateral: 3.70 E'Medial: 4.03 E/E' Med: 10.30 E/E' Lat: 11.20 PHT: 35.00 MVA PHT: 6.29 Decel Cecil: 3.53 Aortic Valve AoV Pk Adrien: 1.72 AoV Mn Adrien: 1.05 AoV VTI: 0.32 AoV Pk Grad: 12.00 Aov Mn Grad: 5.00 EMILY Cont.VTI: 2.94 AI Pk Adrien: 3.71 AI Cecil: 2.91 LVOT LVOT Pk Adrien: 0.91 LVOT Mn Adrien: 0.55 LVOT VTI: 0.19 LVOT Pk Grad: 3.00 LVOT Mn Grad: 2.00 LVOT Diam: 2.50 LVOT Area: 4.91 Diastolic Function MV Pk E: 0.42 MV Pk A: 1.00 E/A: 0.40 E'Medial: 4.03 E/E' Med: 10.30 E' Laterial: 3.70 E/E' Lat: 11.20 Right Ventricle TAPSE (mm): 33.00 TVS' Adrien: 11.00 Tricuspid Valve TR Pk Adrien: 2.28 TR Pk Grad: 21.00 RA Press: 3.00 RVSP: 24.00 Great Vessels Aorta Ao Root-2D: 3.60 2.0-3.7 cm Ao Asc: 4.50 2.1-3.4 cm Pulmonary Valve PV Pk Adrien: 0.69 Peak PV Grad: 2.00 Updated in Other Vendor System with Status of Final Leon Alvarez MD electronically signed on 10/27/2022 3:13:10 PM with status of Final
== END ==
LOC: HO.CARD 12:57
PROVIDERS: PCP Internal Medicine; Visit Provider Nurse Practitioner Family
DX: I25.5 Ischemic cardiomyopathy (principal); I25.10 Atherosclerotic heart disease of native coronary artery without angina pectoris
CPT/HCPCS: 93306

== ENCOUNTER → 2022-10-27 13:00 | Outpatient (BNV) | payer MEDICARE, SELFPAY | PROVIDERS: PCP Internal Medicine; Visit Provider Internal Medicine | DX: I35.1 Nonrheumatic aortic (valve) insufficiency (principal); I34.0 Nonrheumatic mitral (valve) insufficiency | CPT/HCPCS: 93306 ==

== ENCOUNTER 2022-11-21 13:09 | Outpatient (AMB) | payer MEDICARE, SELFPAY ==
--- NOTE | 2022-11-21 13:11 | MHC.OFFVIS ---
Intake Vital Signs 11/21/22 13:12 Height 5 ft 5 in Weight 131 lb 6.328 oz BMI 21.9 BP 142/62 H Blood Pressure Location Lt brachial Position Sitting Pulse 74 Pulse Source Pulse Oximeter Intake Visit Reasons: fu 4-6 weeks Intake Note: fu a-6 weeks Workforce Investment Act Career Manager Required: No Accompanied by: Daughter Allergies metoprolol [From Toprol XL] Allergy (Unknown, Verified 11/21/22 13:16) tachycardia Medication List - Last Reconciled 11/21/22 by Iqra Maya NP-C aspirin (Adult Low Dose Aspirin) 81 mg PO DAILY bupropion HCl (smoking deter) 150 mg PO DAILY hydrocortisone Take 2 tabs every morning and 1 tab every evening orally daily; 30 days levothyroxine 100 mcg PO DAILY 30 days miscellaneous medical supply 1 ea miscellaneous DAILY testosterone 30 mg/actuation (1.5 mL) 4 pumps transdermal DAILY 30 days HPI fu 4-6 weeks HPI Details Tito is a 77-year-old male with past medical history of hyperlipidemia, CAD, remote coronary stent, ischemic cardiomyopathy who presents for follow-up after recent stress test and echocardiogram. Today he reports that he continues to have some lightheadedness. He is dizzy when he is upright and doing things. He has generalized weakness and admits to being mostly sedentary. When he is sitting or laying down he feels better. No falls, presyncope, syncope. He has shortness of breath with activity which is not new. He believes he has lost significant weight however our records show only for 3 lb in the last year. No chest discomfort at rest or with activity. No palpitations, presyncope, syncope, edema. His daughter is present. He reports compliance with all his medications. In the past he reported lightheadedness with lisinopril however he continues to have this symptom off of medication. [facility] Medical History Aortic valve regurgitation CAD (coronary artery disease) Central hypothyroidism Hyperlipidemia Hyperprolactinemia Hypogonadism Hypogonadism in male Hypogonadotropic hypogonadism Ischemic cardiomyopathy Panhypopituitarism Pituitary macroadenoma Secondary adrenal insufficiency Thoracic aortic aneurysm Surgical History History of appendectomy History of cholecystectomy History of coronary artery stent placement History of gastric surgery History of nephrolithotomy with removal of calculi Family History Father Pulmonary embolism Mother CAD (coronary artery disease) Glaucoma Social History Housing: Other Housing Other:: [facility] home Alcohol intake: never Patient Tobacco Use Status: Never used Tobacco e-Cigarette/Vaping Use: Never Used Second Hand Smoke Exposure: No service: No Current occupational status: disabled Cognitive needs: No Hearing needs: No Vision needs: No Review of Systems Const All systems reviewed & are unremarkable except as noted in HPI and below ENT Reports dizziness Card Denies chest pain, Denies chest pain at rest, Denies chest pain with activity, Denies rapid heart rate, Denies pedal edema, Denies edema, Denies leg edema, Denies lightheadedness, Denies palpitations, Denies dyspnea, Reports dyspnea on exertion and Denies orthopnea Resp Denies cough, Denies dyspnea and Reports dyspnea on exertion GI Denies hematochezia and Denies change in stool character Musc Denies abnormal gait, Denies limited range of motion, Reports muscle weakness, Denies numbness, Denies radiating pain into limb, Denies stiffness and Denies tingling Neuro Denies abnormal gait, Reports dizziness, Denies numbness and Denies tingling Endo Denies palpitations Physical Exam Vital Signs: Last Vital Signs Pulse 74 11/21/22 13:12 BP 142/62 H 11/21/22 13:12 BMI result Body Mass Index 21.9 Const Other: Frail elderly male General: cooperative and no acute distress Orientation/consciousness: patient oriented x3 Neck Neck: Yes normal visual inspection Chest Chest palpation & inspection: normal inspection of the chest Resp Effort & Inspection: normal respiratory effort Auscultation: clear to auscultation bilaterally, no crackles, no rales, no rhonchi and no wheezes Cardio Jugular venous distension: no JVD Rate: regular rate Rhythm: regular rhythm Heart sounds: S1 normal heart sound present, S2 normal heart sound present, no murmurs and no rubs Skin Other: Very dry and flaky Neuro General: patient oriented x3 Extrem General: Yes normal to inspection Psych Appearance: grossly normal Mental Status: mental status grossly normal Speech and movement: Normal speech and movement present Assessment & Plan Assessment & Plan (1) Ischemic cardiomyopathy: Code(s): I25.5 - Ischemic cardiomyopathy Plan: History of ischemic cardiomyopathy. Echo 02/07/2020 with EF 30-35%, basal inferior lateral hypokinesis and basal inferior akinetic. A nuclear stress test was ordered at that time however not completed by patient. He then did not present for follow-up between 03/2020 and last visit 09/2022. On last visit he reported atypical sounding chest discomfort which has since improved. He does have some shortness of breath with activity with apparent physical deconditioning. An echocardiogram was done 10/27/2022 showing EF 30%, inferior and basal inferior akinetic. A nuclear stress test was done 10/23/2022 showing no ischemia, EF 45%. Notes indicate that he did not tolerate neurohormonal modulation in the past. At this time he does report dizziness which is a frequent symptom for him. Unclear cause however could be general weakness. Blood pressure mildly elevated today and not orthostatic on examination. He has no clinical signs indicating decompensated heart failure. Cardiac defibrillator reviewed with him and he declines at this time. Will try to restart low-dose ARB, valsartan 20 mg b.i.d.. Informed that if his lightheadedness becomes worse he should stop medication. If he tolerates plan for basic metabolic profile in 1 week. Prior notes indicate he was intolerant to metoprolol and lisinopril in the past. Signs and symptoms of heart failure reviewed. Cardiology follow-up in 4-6 weeks, sooner if needed. (2) CAD (coronary artery disease): Code(s): I25.10 - Atherosclerotic heart disease of [place] coronary artery without angina pectoris Plan: History of CAD with remote LAD stenting. On last visit reported some atypical sounding chest discomfort. EKG done last visit showing sinus rhythm with sinus arrhythmia, no acute ST or T-wave abnormalities, septal Q-waves present. Overall unchanged from prior EKG. He is on daily aspirin. Is not on statin for unclear reason. Last cholesterol check in our system done 12/15/2019 showed LDL 67. Will need to update fasting lipid profile. Signs and symptoms of angina reviewed with him. (3) Thoracic aortic aneurysm: Code(s): I71.2 - Thoracic aortic aneurysm, without rupture Plan: Last echo showed thoracic aorta dilation 4.2 cm. Echo done 10/27/2022 shows mild dilation of the ascending aorta at 4.5 cm. Will continue to follow. Need for good blood pressure control reviewed. (4) Stented coronary artery: Comment: Remote LAD Code(s): Z95.5 - Presence of coronary angioplasty implant and graft Plan: Remote history of LAD stent. No anginal sounding symptoms (5) Aortic valve regurgitation: Code(s): I35.1 - Nonrheumatic aortic (valve) insufficiency Plan: Recent echo with mild aortic valve regurgitation, no stenosis Orders: Orders Lipid Panel Today E78.5 - Hyperlipidemia, unspecified Medications: New valsartan 20 mg (1/2 x 40 mg) PO BID 30 tabs 3RF Coding Level of Care Code Est Pt Level 4 (78656) Diagnoses Ischemic cardiomyopathy I25.5 CAD (coronary artery disease) I25.10 Thoracic aortic aneurysm I71.2 Stented coronary artery Z95.5 Aortic valve regurgitation I35.1 Time Spent (min) 28 Comment Chart review, documentation, interview, assessment
[2022-11-21 13:12] VITALS: BP 142/62; PULSE 74; BMI 21.9
== END 2022-11-21 13:50 | disposition home or self-care (01) ==
PROVIDERS: PCP Internal Medicine; Referring Provider Internal Medicine; Visit Provider Nurse Practitioner Family
DX: I25.5 Ischemic cardiomyopathy (principal); I25.10 Atherosclerotic heart disease of native coronary artery without angina pectoris; I71.20 Thoracic aortic aneurysm, without rupture, unspecified; Z95.5 Presence of coronary angioplasty implant and graft; I35.1 Nonrheumatic aortic (valve) insufficiency
CPT/HCPCS: 99214

== ENCOUNTER → 2022-11-21 13:09 | Outpatient (BNVA) | payer MEDICARE, SELFPAY | PROVIDERS: PCP Internal Medicine; Referring Provider Internal Medicine; Visit Provider Nurse Practitioner Family | DX: I25.5 Ischemic cardiomyopathy (principal); I25.10 Atherosclerotic heart disease of native coronary artery without angina pectoris; I35.1 Nonrheumatic aortic (valve) insufficiency; Z95.5 Presence of coronary angioplasty implant and graft; I71.20 Thoracic aortic aneurysm, without rupture, unspecified | CPT/HCPCS: 99212 ==

== ENCOUNTER 2023-01-26 14:17 | Outpatient (AMB) | payer MEDICARE, SELFPAY ==
--- NOTE | 2023-01-26 14:19 | A.OFFPC_ITS ---
Vital Signs 01/26/23 14:21 Height 5 ft 5 in Weight 130 lb BMI 21.6 BP 130/76 Blood Pressure Location Lt brachial Position Sitting Pulse 79 Pulse Source Pulse Oximeter Pulse Oximetry (%) 98 Oxygen Delivery Method Room Air Intake Visit Reasons: [facility]/back pains/ 12/30-12/31/22 Intake Note: Patient is here for hospital discharge follow up. Patient was discharged from [facility] on 12/31/22. Aerosol Line Operator Required: No Line Closer: Not Required per policy Accompanied by: Self / Same As Patient Allergies metoprolol [From Toprol XL] Allergy (Unknown, Verified 01/26/23 14:20) tachycardia Medication List - Last Reconciled 01/27/23 by Spenser Salamanca MD aspirin (Adult Low Dose Aspirin) 81 mg PO DAILY bupropion HCl (smoking deter) 150 mg PO DAILY hydrocortisone Take 2 tabs every morning and 1 tab every evening orally daily; 30 days levothyroxine 100 mcg PO DAILY 30 days meloxicam 15 mg PO DAILY miscellaneous medical supply 1 ea miscellaneous DAILY testosterone 30 mg/actuation (1.5 mL) 4 pumps transdermal DAILY 30 days valsartan 20 mg (1/2 x 40 mg) PO BID Tobacco use date assessed: 01/26/23 Fall risk assessment: No Falls in past year Last assessed Fall Risk: 01/26/23 Dental Screening Dental Screen Date: 01/26/23 Did you have a dental visit in the last 12 months?: Yes Did you have a dental problem in the last 6 months where you did not have access to dental care?: No Was dental information given to patient?: Patient has dentist HPI [facility]/back pains/ 12/30-12/31/22 HPI Details low back pain; admitted to [facility] and cause is OA [facility] Medical History Aortic valve regurgitation CAD (coronary artery disease) Central hypothyroidism Hyperlipidemia Hyperprolactinemia Hypogonadism Hypogonadism in male Hypogonadotropic hypogonadism Ischemic cardiomyopathy Panhypopituitarism Pituitary macroadenoma Secondary adrenal insufficiency Thoracic aortic aneurysm Surgical History History of gastric surgery History of nephrolithotomy with removal of calculi History of coronary artery stent placement History of cholecystectomy History of appendectomy Family History Father Pulmonary embolism Mother CAD (coronary artery disease) Glaucoma Social History Housing: Other Housing Other:: [facility] home Alcohol intake: never Patient Tobacco Use Status: Never used Tobacco e-Cigarette/Vaping Use: Never Used Second Hand Smoke Exposure: No service: No Current occupational status: disabled Cognitive needs: No Hearing needs: No Vision needs: No Questionnaire Thrive Questionnaire Date Thrive assessed: 06/19/22 SPRING-7 AMB Questionnaire SPRING-7 Date SPRING - 7 assessed: 06/19/22 Source: Developed by Drs. Tito Greene, Brittney Shearer, Toñito Macias and colleagues, with an educational pancho from [employer]. Review of Systems Const Denies chills, Denies headache(s) and Denies weight loss ENT Denies headache(s) Card Denies chest pain, Denies syncope, Denies irregular heart rhythm and Denies dyspnea Resp Denies chest congestion, Denies cough and Denies dyspnea GI Denies abdominal pain, Denies change in stool character, Denies nausea and Denies vomiting Musc Denies deformity and Denies joint swelling Neuro Denies syncope and Denies headache(s) Physical exam (Primary Care) Vital Signs: Last Vital Signs Pulse 79 01/26/23 14:21 BP 130/76 01/26/23 14:21 Pulse Ox 98 01/26/23 14:21 Oxygen Delivery Method Room Air 01/26/23 14:21 BMI result Body Mass Index 21.6 Tobacco/Smoking Status: Tobacco use Status Tobacco use date assessed 01/26/23 01/26/23 14:27 Patient Tobacco Use Status Never used Tobacco 01/26/23 14:27 e-Cigarette/Vaping Use Never Used 01/26/23 14:27 Thrive Assessment: Date of Thrive Assessment Date Thrive assessed 06/19/22 01/26/23 14:27 Const General: cooperative, comfortable, no acute distress and alert Neck Neck: Yes no lymphadenopathy Thyroid: Thyroid normal Resp Effort & Inspection: normal respiratory effort Auscultation: clear to auscultation bilaterally Percussion: percussion normal Cardio Jugular venous distension: no JVD Palpation: normal PMI Rate: regular rate Rhythm: regular rhythm Heart sounds: S1 normal heart sound present and S2 normal heart sound present GI Inspection: Yes normal to inspection Palpation (GI): No hepatosplenomegaly present Skin General skin exam: no rashes or lesions noted Extrem General: Yes no clubbing, cyanosis or edema Assessment and Plan Assessment & Plan (1) Low back pain: Code(s): M54.50 - Low back pain, unspecified Plan: take rx Medications: New meloxicam 15 mg PO DAILY 30 tabs 4RF Coding Level of Care Code Est Pt Level 3 (06988) Diagnoses Low back pain M54.50
[2023-01-26 14:21] VITALS: BP 130/76; PULSE 79; O2SAT 98; BMI 21.6
== END 2023-01-26 14:46 | disposition home or self-care (01) ==
PROVIDERS: PCP Internal Medicine; Visit Provider Internal Medicine
DX: M54.50 Low back pain, unspecified (principal)
CPT/HCPCS: 99213

== ENCOUNTER 2023-06-22 12:51 | Outpatient (AMB) | payer MEDICARE, SELFPAY ==
[2023-06-22 12:54] VITALS: BP 150/60; PULSE 63; O2SAT 98; BMI 21.0
--- NOTE | 2023-06-22 12:54 | MHC.PC.OV ---
Vital Signs 06/22/23 12:54 Height 5 ft 5 in Weight 126 lb BMI 21.0 BP 150/60 H Blood Pressure Location Lt brachial Position Sitting Pulse 63 Pulse Source Pulse Oximeter Pulse Oximetry (%) 98 Oxygen Delivery Method Room Air Intake Visit Reasons: Annual Exam Ergonomics Consultant Required: No Refinery Operator Alkylation: Not Required per policy Accompanied by: Self / Same As Patient Allergies metoprolol [From Toprol XL] Allergy (Unknown, Verified 06/22/23 12:54) tachycardia Medication List - Last Reconciled 06/23/23 by Spenser Salamanca MD aspirin (Adult Low Dose Aspirin) 81 mg PO DAILY bupropion HCl (smoking deter) 150 mg PO DAILY hydrocortisone Take 2 tabs every morning and 1 tab every evening orally daily; 30 days levothyroxine 100 mcg PO DAILY 30 days miscellaneous medical supply 1 ea miscellaneous DAILY testosterone 30 mg/actuation (1.5 mL) 4 pumps transdermal DAILY 30 days valsartan 20 mg (1/2 x 40 mg) PO BID Tobacco use date assessed: 06/22/23 Fall risk assessment: No Falls in past year Last assessed Fall Risk: 06/22/23 Dental Screening Dental Screen Date: 06/22/23 Did you have a dental visit in the last 12 months?: No Did you have a dental problem in the last 6 months where you did not have access to dental care?: No Was dental information given to patient?: Patient has dentist HPI Annual Exam HPI Details hypopituitarism and hyothyroidism on rx; sees endo but not in a while COUNTS INCLUDE 234 BEDS AT THE [facility] Medical History Aortic valve regurgitation CAD (coronary artery disease) Central hypothyroidism Hyperlipidemia Hyperprolactinemia Hypogonadism Hypogonadism in male Hypogonadotropic hypogonadism Ischemic cardiomyopathy Panhypopituitarism Pituitary macroadenoma Secondary adrenal insufficiency Thoracic aortic aneurysm Surgical History History of gastric surgery History of nephrolithotomy with removal of calculi History of coronary artery stent placement History of cholecystectomy History of appendectomy Family History Father Pulmonary embolism Mother CAD (coronary artery disease) Glaucoma Social History (Reviewed 01/26/23 @ 14:19 by JOSEPH Crawley Housing: [facility] Alcohol intake: never Patient Tobacco Use Status: Never used Tobacco e-Cigarette/Vaping Use: Never Used Second Hand Smoke Exposure: No service: No Current occupational status: disabled Cognitive needs: No Hearing needs: No Vision needs: Yes (glasses) Questionnaire PHQ-9 Over the last 2 weeks, how often have you been bothered by any of the following problems? 1. Little interest or pleasure in doing things: not at all 2. Feeling down, depressed, or hopeless: not at all 3. Trouble falling or staying asleep, or sleeping too much: not at all 4. Feeling tired or having little energy: not at all 5. Poor appetite or overeating: not at all 6. Feeling bad about yourself - or that you are a failure or have let yourself or your family down: not at all 7. Trouble concentrating on things, such as reading the newspaper or watching television: not at all 8. Moving or speaking so slowly that other people could have noticed. Or the opposite - being so fidgety or restless that you have been moving around a lot more than usual: not at all 9. Thoughts that you would be better off or of hurting yourself in some way: not at all Total score: 0 Depression Screening Interpretation: Negative Depression Screening Done: Yes 98876 - PHQ-9 Billing: Yes Source: Developed by Drs. Tito Greene, Brittney Shearer, Toñito Macias and colleagues, with an educational pancho from [employer]. Thrive Questionnaire Date Thrive assessed: 06/22/23 I am a: Patient What is your living situation today?: I have a steady place to live Within the past 12 months, did the food you bought not last and you didn't have the money to get more?: Never true Within the past 12 months, did you worry whether your food would run out before you got money to buy more?: Never true Do you have trouble paying for medicines?: No Do you have trouble getting transportation to medical appointments?: No Do you have trouble paying your heating and electricity bill?: No Do you have trouble taking care of your child, family member or friend?: No Do you have trouble with day-to-day activities such as bathing, preparing meals, shopping, managing finances, etc.?: No Are you currently unemployed and looking for a job?: No Are you interested in more education?: No Please select the resources that you would like help with: None THRIVE Score: 0 AUDIT C Alcohol Use Questionnaire (AUDIT-C) 1. How often do you have a drink containing alcohol?: Never Total Score: 0 Score Reviewed/Action Taken: Yes SPRING-7 AMB Questionnaire SPRING-7 Date SPRING - 7 assessed: 06/22/23 Feeling nervous, anxious, or on edge: 0 = Not at all Not being able to stop or control worryin = Not at all Worrying too much about different things: 0 = Not at all Trouble relaxin = Not at all Being so restless that it is hard to sit still: 0 = Not at all Becoming easily annoyed or irritable: 0 = Not at all Feeling afraid as if something awful might happen: 0 = Not at all Total SPRING-7 score (0-4 normal; 5-9 mild; 10-14 moderate; 15-21 severe): 0 Source: Developed by Drs. Tito Greene, Brittney Shearer, Toñito Macias and colleagues, with an educational pancho from [employer]. SPRING-7 Assessment Billing SPRING-7 Assessment Tool: SPRING-7 Assessment 70098 Review of Systems Const Denies chills, Denies fatigue, Denies headache(s) and Denies weight loss Eyes Denies change in vision, Denies diplopia and Denies eye pain ENT Denies vertigo, Denies dizziness, Denies headache(s) and Denies nasal discharge Card Denies chest pain, Denies rapid heart rate and Denies dyspnea on exertion Resp Denies chest congestion, Denies cough, Denies pain with cough and Denies dyspnea on exertion GI Denies abdominal pain, Denies hematochezia and Denies change in bowel habits Musc Denies myalgias, Denies arthralgias and Denies joint swelling Skin/Breast Denies lesions and Denies unusual bruising Neuro Denies vertigo, Denies dizziness, Denies headache(s) and Denies focal weakness Endo Denies fatigue Physical exam (Primary Care) Vital Signs: Last Vital Signs Pulse 63 06/22/23 12:54 BP 150/60 H 06/22/23 12:54 Pulse Ox 98 06/22/23 12:54 Oxygen Delivery Method Room Air 06/22/23 12:54 BMI result Body Mass Index 21.0 Tobacco/Smoking Status: Tobacco use Status Tobacco use date assessed 06/22/23 06/22/23 13:01 Patient Tobacco Use Status Never used Tobacco 06/22/23 13:01 e-Cigarette/Vaping Use Never Used 06/22/23 13:01 PHQ-9: PHQ-9 Score PHQ-9: Total score 0 06/22/23 13:01 Depression Screening Interpretation: Negative Thrive Assessment: Date of Thrive Assessment Date Thrive assessed 06/22/23 06/22/23 13:01 Const General: cooperative, healthy appearing and no acute distress Orientation/consciousness: oriented to person, oriented to place and oriented to time HENMT Head: Yes normal to inspection, Yes normocephalic and Yes atraumatic Mouth: Normal oral and palatal mucosa present and tongue normal Throat: Yes posterior oropharynx normal and Yes uvula midline Eyes General: appearance normal, both eyes and all related structures Neck Neck: Yes normal visual inspection, Yes full ROM and Yes no lymphadenopathy Thyroid: Thyroid normal Carotids: normal carotid upstroke Chest Chest palpation & inspection: normal inspection of the chest Resp Effort & Inspection: normal respiratory effort and able to speak in complete sentences Auscultation: clear to auscultation bilaterally Cardio Jugular venous distension: no JVD Palpation: normal PMI Rate: regular rate Rhythm: regular rhythm Heart sounds: S1 normal heart sound present and S2 normal heart sound present GI Inspection: Yes normal to inspection Palpation (GI): Soft to palpation and No hepatosplenomegaly present Auscultation: normal bowel sounds General: Yes no CVA tenderness Back/Spine/Pelvis Back: no CVA tenderness Skin General skin exam: no rashes or lesions noted Neuro General: oriented to person, oriented to place and oriented to time Extrem General: Yes normal to inspection and Yes full ROM Assessment and Plan Assessment & Plan (1) Physical exam: Code(s): Z00.00 - Encounter for general adult medical examination without abnormal findings Plan: stable; do labs (2) Central hypothyroidism: Code(s): E03.8 - Other specified hypothyroidism Plan: per endo (3) Hypertension: Code(s): I10 - Essential (primary) hypertension Plan: stable; same rx (4) CAD (coronary artery disease): Code(s): I25.10 - Atherosclerotic heart disease of [place] coronary artery without angina pectoris Plan: stable; no recurrence since stent placed Coding Level of Care Code Est Pt Prev Care >65y(38704) Diagnoses Physical exam Z00.00 Central hypothyroidism E03.8 Hypertension I10 CAD (coronary artery disease) I25.10 Additional Codes SPRING-7 Assessment Billing - SPRING-7 Assessment Tool: SPRING-7 Assessment 23929 ([id number])
== END 2023-06-22 13:14 | disposition home or self-care (01) ==
PROVIDERS: Visit Provider Internal Medicine
DX: Z00.00 Encounter for general adult medical examination without abnormal findings (principal); E03.8 Other specified hypothyroidism; I10 Essential (primary) hypertension; I25.10 Atherosclerotic heart disease of native coronary artery without angina pectoris
CPT/HCPCS: 99397

== ENCOUNTER 2023-08-12 08:36 | Outpatient (REF) | payer MEDICARE, SELFPAY ==
[2023-08-12 08:55] LABS: MANUAL DIFF FLAG NO
[2023-08-12 09:17] LABS: Basophils Absolute Auto 0.1 X10*3/uL (0.0-0.2); Basophils Percent Auto 0.8 % (0-2); Eosinophils Absolute Auto 0.1 X10*3/uL (0.0-0.4); Eosinophils Percent Auto 1.4 % (0-4); Hematocrit 43.5 % (42.0-52.0); Hemoglobin 14.4 g/dl (14.0-18.0); Imm Gran Abs Auto 0.03 X10*3/uL (0.00-0.03); Imm Gran Pct Auto 0.3 % (0.0-0.4); Lymphocytes Absolute Auto 1.8 X10*3/uL (1.2-4.9); Lymphocytes Percent Auto 19.2 % (20-40); Mean Corpuscular HGB Conc 33.1 g/dl (31.0-36.0); Mean Corpuscular Hemoglobin 28.8 pg (27.0-33.0); Mean Platelet Volume 9.7 fL (9.4-12.4); Monocytes Absolute Auto 0.5 X10*3/uL (0.1-1.2); Monocytes Percent Auto 5.6 % (2-11); Neutrophils Absolute Auto 6.8 x10*3/uL (2.0-8.3); Neutrophils Percent Auto 72.7 % (45-73); Platelet Count 312 X10*3/uL (160-400); Red Cell Distribution Width 14.8 % (11.0-16.0); White Blood Count 9.3 X10*3/uL (4.8-10.8)
[2023-08-12 09:49] LABS: Alanine Aminotransferase 7 U/L (0-40); Alkaline Phosphatase 75 U/L (39-117); Anion Gap 14 (12-20); Aspartate Amino Transferase 14 U/L (5-37); Bilirubin Total 0.9 mg/dL (0.0-1.0); Blood Urea Nitrogen 14 mg/dL (9-16); Calcium 9.3 mg/dL (8.4-10.2); Carbon Dioxide 23 mmol/L (22-29); Chloride 103 mmol/L (96-108); Cholesterol 202 mg/dL (<200); Estimated Glomerular Filt Rate 54; Glucose Fasting 88 mg/dL (60-99); HDL Cholesterol 54 mg/dL (>40); LDL Cholesterol Calculated 131 mg/dL (<100); Potassium 3.8 mmol/L (3.3-5.1); Sodium 136 mmol/L (135-145); Triglycerides 87 mg/dL (<150)
[2023-08-12 10:00] LABS: Prostate Specific Antigen Scr 0.78 ng/mL (<0.05-4.0)
[2023-08-12 10:05] LABS: Free T4 (Free Thyroxine) 1.04 ng/dL (0.71-1.85); Thyroid Stimulating Hormone 5.91 uIU/mL (0.32-4.0)
[2023-08-13 19:59] LABS: Prolactin 24.4 ng/mL (2.0-18.0)
[2023-08-19 16:48] LABS: Testosterone, Free 42.4 pg/mL (30.0-135.0); Testosterone, Total 451 ng/dL (250-1100)
== END 2023-08-12 08:37 | disposition home or self-care (01) ==
LOC: HO.LAB 08:36
PROVIDERS: PCP Internal Medicine; Visit Provider Internal Medicine Endocrinology, Diabetes & Metabolism
DX: Z00.00 Encounter for general adult medical examination without abnormal findings (principal); E22.1 Hyperprolactinemia; E03.8 Other specified hypothyroidism; D35.2 Benign neoplasm of pituitary gland; D64.9 Anemia, unspecified; N28.9 Disorder of kidney and ureter, unspecified; E03.9 Hypothyroidism, unspecified; E78.5 Hyperlipidemia, unspecified; Z12.5 Encounter for screening for malignant neoplasm of prostate
CPT/HCPCS: 36415; 80053; 80061; 84146; 84153; 84402; 84403; 84439; 84443; 85025

== ENCOUNTER 2023-08-13 13:13 | Outpatient (AMB) | payer MEDICARE, SELFPAY ==
[2023-08-13 13:14] VITALS: BP 130/56; PULSE 66; BMI 21.2
--- NOTE | 2023-08-13 13:14 | A.OFFVIS_ITS ---
Vital Signs 08/13/23 13:14 Height 5 ft 5 in Weight 127 lb 3.307 oz BMI 21.2 BP 130/56 L Blood Pressure Location Lt brachial Position Sitting Pulse 66 Pulse Source Pulse Oximeter Intake Visit Reasons: F/U Pituitary macroadenoma Intake Note: Patient present today for Pituitary macroadenoma follow up visit. Corporate Law Specialist Required: No Accompanied by: Daughter Allergies metoprolol [From Toprol XL] Allergy (Unknown, Verified 08/13/23 13:19) tachycardia Medication List - Last Reconciled 08/13/23 by Tito Shetty MD aspirin (Adult Low Dose Aspirin) 81 mg PO DAILY bupropion HCl (smoking deter) 150 mg PO DAILY hydrocortisone Take 2 tabs every morning and 1 tab every evening orally daily; 30 days levothyroxine 100 mcg PO DAILY 30 days miscellaneous medical supply 1 ea miscellaneous DAILY testosterone 30 mg/actuation (1.5 mL) 4 pumps transdermal DAILY 30 days valsartan 20 mg (1/2 x 40 mg) PO BID HPI Comments Details: 78 YO Male with PMHx 3.3 cm sellar mass s/p resection, now with regrowth, with resultant panhypopituitarism who is seen in F/U. Patient last saw Dr. Ruff on 10/22/2022 The patient had a large bilobed intra and suprasellar mass measuring 2.3 x 3.3 cm with mass effect on the optic chiasm which was diagnosed in 2014 after he presented with occular symptoms. He had resection of this mass in early 2015 at [facility] in [place], [place] by Dr. Agee. The complete mass was unable to be resected so he had stereotactic radiation therapy shortly after. He reports that this was a benign pituitary lesion, but unfortunately no path report is available. He was formerly followed by School Bus Mechanic Jian Rahman at [facility]. He chose to switch to a different physician given proximity to his home. 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 He was started on Hydrocortisone 20 mg PO q am with 10 mg PO q pm. He was also started on Levothyroxine 100 mcg PO daily, and androgel supplementation. He was only able to continue the androgel for 3 months after which time it became too expensive for him, so he then remained off supplementation for 2 years. In mid 2019 he decreased his dose of Hydrocortisone to 10 mg q AM and 5 mg q PM. He thereafter began having episodes of LOC and orthostatic symptoms, as well as weight loss. He has had 4 trips to the ER due to LOC since that time. His dose of Hydrocortisone was never increased further, but the episodes of LOC did resolve spontaneously. His previous School Bus Mechanic recommended IM testosterone injections skyla y, but the patient had adamantly refused this. He did have labs which revealed completely absent testosterone by his PCP, and he was subsequently referred to Endocrinology here at [facility]. Labs were repeated and confirmed absent testosterone levels and evidence of hypogonadotropic hypogonadism. He was started on Testosterone [employer] Sales Representative Solution 90 mg daily (3 pumps of 30 mg/railroad yard worker per shoulder every morning). He does take his Levothyroxine correctly, first thing in the morning on an empty stomach. He waits 1 hour to eat and at least 30 minutes to take his other medications. He does report being poorly compliant with this. He also had his Pituitary MRI repeated 12/30/18 which reveals regrowth of the sellar mass, now measuring 2.5 cm. There is no mention of compression of the optic apparatus. He was referred to his Neurosurgeon Dr. Agee, who he has been following with regularly. He then had a repeat MRI 01/11/2020 which revealed the mass now measuring 2.7 cm, and unchanged from prior. His repeat MRIs are ordered by his Neurosurgeon who he follows with regularly. Most recent 02/27/2022 revealing a 2.7 cm mass. He does mention that his energy level has improved since starting the Testosterone. He has had no further episodes of LOC. He denies any leg pain, blood clots, or shortness of breath. He denies any weak urinary stream or difficulty initiating urination. He reports that he does have his medical ID bracelet as well as his solucortTweetwall emergency kit. 09/28/18 Total Testosterone <1 Free Testosterone = Unable to calculate MRI Brain 12/30/18 FINDINGS: The previously seen large sellar/suprasellar mass present on the March 06, 2015 exam has been resected. There is a heterogeneously enhancing recurrent/residual lesion measuring 2.5 x 1.0 x 1.9 cm which expands and fills the width of the sella and bulges into the medial aspect of the right cavernous sinus. The normal pituitary gland is not well resolved separate from this lesion but is possibly seen on series 10 image 03/17 to the left of midline. The infundibulum is thinned and inserts to the left of midline. The normal posterior pituitary bright spot is not seen. There is no mass effect on the optic apparatus. The cavernous segments of the bilateral internal carotid arteries are preserved. There is no acute infarct, hemorrhage, parenchymal mass, or extra-axial fluid collection. Postoperative findings of right pterional craniotomy are noted with some encephalomalacic changes seen in the right frontal lobe. 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 There is diffuse brain parenchymal volume loss with some commensurate prominence of the ventricles and sulci. Moderate foci of T2 hyperintensity are seen throughout the bilateral cerebral white matter most compatible with microangiopathy. No unexpected parenchymal enhancement is seen. A mild degree of pachymeningeal enhancement is seen about the right frontal convexity, presumably postoperative. The extracranial structures are within normal limits allowing for the postoperative findings. No paranasal sinus or mastoid fluid is seen. IMPRESSION: - Interval resection of large sellar/suprasellar mass seen on the March 06, 2015 and MRI. Residual/recurrent expansile enhancing lesion within the sella extending into the medial aspect of the right cavernous sinus which measures up to 2.5 cm. The pituitary gland is not well resolved separate from the lesion but is possibly seen in the left aspect of the sella as detailed above. The infundibulum is diffusely thinned. No mass effect on the optic apparatus. Cavernous carotid flow voids are well preserved. - Postoperative findings of right pterional craniotomy noted. - No acute intracranial abnormality. MRI Brain 03/06/15 FINDINGS: There is a bilobed intra- and suprasellar mass lesion that measures at least 2.3 (AP) x 3.3 (TV) x (SI) centimeters. This extends into the cavernous sinus on both sides with lateral displacement of the cavernous carotid arteries. There is significant mass effect on the optic chiasm, pre-and post chiasmatic optic nerves, hypothalamus, infundibulum, and anterior recess of the third ventricle. [place] vessels are also displaced. Chronic small vessel ischemic changes are seen throughout the supratentorial white matter along with a small chronic lacunar infarct in the right cerebellum. Mild ventricular prominence probably reflects an element of central volume loss. No focal reduced diffusion is seen to suggest acute or subacute cerebral ischemia. No intracerebral edema, intra-axial blood products, midline shift, or extra-axial collection is visualized. The paranasal sinuses are well aerated. Labs: Laboratory Tests 04/21/22 04/21/22 04/21/22 08:57 08:57 08:57 Sodium 139 Potassium 4.1 Creatinine 1.25 Estimated GFR 56 Osmolality 292 Prostate Specific Ag 0.29 TSH 4.91 H Free T4 1.29 Random Cortisol ACTH Pending 04/21/22 08:57 Sodium Potassium Creatinine Estimated GFR Osmolality Prostate Specific Ag TSH Free T4 Random Cortisol 22.7 ACTH C/O worsening vision in L eye. . No problem with urination stream. Low energy level. No orthostatic sx. No libido . [facility] Medical History Aortic valve regurgitation CAD (coronary artery disease) Central hypothyroidism Hyperlipidemia Hyperprolactinemia Hypogonadism Hypogonadism in male Hypogonadotropic hypogonadism Ischemic cardiomyopathy Panhypopituitarism Pituitary macroadenoma Secondary adrenal insufficiency Thoracic aortic aneurysm Surgical History History of gastric surgery History of nephrolithotomy with removal of calculi History of coronary artery stent placement History of cholecystectomy History of appendectomy Family History Father Pulmonary embolism Mother CAD (coronary artery disease) Glaucoma Social History Housing: Other Housing Other:: [facility] Alcohol intake: never Patient Tobacco Use Status: Never used Tobacco e-Cigarette/Vaping Use: Never Used Second Hand Smoke Exposure: No service: No Current occupational status: disabled Cognitive needs: No Hearing needs: No Vision needs: Yes (glasses) Physical Exam Vital Signs: Last Vital Signs Pulse 66 08/13/23 13:14 BP 130/56 L 08/13/23 13:14 BMI result Body Mass Index 21.2 Const Other: There is visual field loss by in the left eye by gross confrontation. Thyroid gland is normal size weighs about 15 g . There are no thyroid nodules palpated. Rectal examination reveals normal size prostate without the presence of any masses Assessment & Plan Assessment & Plan (1) Hypogonadotropic hypogonadism: Code(s): E23.0 - Hypopituitarism Category: Medical Plan: See plan below (2) Pituitary macroadenoma: Code(s): D35.2 - Benign neoplasm of pituitary gland Category: Medical Plan: This is a 78-year-old white male with a history of a pituitary macroadenoma followed by Neurosurgery status post pituitary surgery with development of secondary hypogonadism, secondary adrenal insufficiency. He also has hypothyroidism but has been able to mount a reasonable TSH suggesting that the hypothyroidism is primary not secondary. He is currently replaced on hydrocortisone 10 mg in the morning and 5 mg in the evening as well as levothyroxine 100 mcg and testosterone gel 4 pumps per day The plan is to talk to the patient about increase levothyroxine to 112 mcg and rechecking TSH and free T4 in 6 weeks time. Will await testosterone levels and titrate testosterone accordingly.. Also told patient to call Dr. Agee [facility] to schedule follow-up appointment as soon as possible to obtain a repeat MRI through Dr. Agee. I think the visual loss by exam is diffuse and one-sided and probably unrelated to the pituitary the patient states he was diagnosed with a cataract recently. He should also follow up with Ophthalmology. Lastly I went over sick day rules and hydrocortisone with the patient and prescribed hydrocortisone ACT-O Vial 100 mg (3) Secondary adrenal insufficiency: Code(s): E27.49 - Other adrenocortical insufficiency Category: Medical Plan: See plan for pituitary (4) Hypothyroidism: Code(s): E03.9 - Hypothyroidism, unspecified Category: Medical Plan: See plan for hypopituitarism Orders: Orders Free T4 (Free Thyroxine) 6 Weeks E03.9 - Hypothyroidism, unspecified Thyroid Stimulating Hormone 6 Weeks E03.9 - Hypothyroidism, unspecified Medications: New hydrocortisone sod succ (PF) (Solu-Cortef Act-O-Vial (PF)) 100 mg (2 mL) IM ONCE 2 ea 0RF levothyroxine 112 mcg PO DAILY 30 tabs 4RF hydrocortisone Take 10 mg in AM and 5 mg in PM 10 mg PO DAILY 30 tabs 4RF hydrocortisone take 5 mg in PM for total of 15 mg 5 mg PO DAILY 30 tabs 4RF Discontinued levothyroxine Discontinued Reason: Doctor's Order 100 mcg PO DAILY 30 days 30 tabs 3RF E23.0 - Hypopituitarism Coding Level of Care Code Est Pt Level 3 (89572) Diagnoses Hypogonadotropic hypogonadism E23.0 Pituitary macroadenoma D35.2 Secondary adrenal insufficiency E27.49 Hypothyroidism E03.9
== END 2023-08-13 14:05 | disposition home or self-care (01) ==
PROVIDERS: PCP Internal Medicine; Visit Provider Internal Medicine Endocrinology, Diabetes & Metabolism
DX: E23.0 Hypopituitarism (principal); D35.2 Benign neoplasm of pituitary gland; E27.49 Other adrenocortical insufficiency; E03.9 Hypothyroidism, unspecified
CPT/HCPCS: 99213

== ENCOUNTER → 2023-08-13 13:13 | Outpatient (BNVA) | payer MEDICARE, SELFPAY | PROVIDERS: PCP Internal Medicine; Visit Provider Internal Medicine Endocrinology, Diabetes & Metabolism | DX: E23.0 Hypopituitarism (principal); D35.2 Benign neoplasm of pituitary gland; E27.49 Other adrenocortical insufficiency; E03.9 Hypothyroidism, unspecified | CPT/HCPCS: 99212 ==

== ENCOUNTER 2023-11-10 14:28 | Outpatient (AMB) | payer MEDICARE, SELFPAY ==
[2023-11-10 14:33] VITALS: BP 130/72; PULSE 79; O2SAT 97; BMI 21.6
--- NOTE | 2023-11-10 14:33 | MHC.PC.OV ---
Vital Signs 11/10/23 14:33 Height 5 ft 5 in Weight 130 lb BMI 21.6 BP 130/72 Blood Pressure Location Lt brachial Position Sitting Pulse 79 Pulse Source Pulse Oximeter Pulse Oximetry (%) 97 Oxygen Delivery Method Room Air Intake Visit Reasons: 3 mo follow up Savings Teller Required: No Allergies metoprolol [From Toprol XL] Allergy (Unknown, Verified 11/10/23 14:33) tachycardia Medication List - Last Reconciled 11/10/23 by Trudy Taylor PA-C aspirin (Adult Low Dose Aspirin) 81 mg PO DAILY bupropion HCl (smoking deter) 150 mg PO DAILY hydrocortisone 10 mg PO DAILY hydrocortisone 5 mg PO DAILY hydrocortisone sod succ (PF) (Solu-Cortef Act-O-Vial (PF)) 100 mg (2 mL) IM ONCE levothyroxine 112 mcg PO DAILY miscellaneous medical supply 1 ea miscellaneous DAILY testosterone 30 mg/actuation (1.5 mL) 4 pumps transdermal DAILY 30 days valsartan 20 mg (1/2 x 40 mg) PO BID Tobacco use date assessed: 06/22/23 Fall risk assessment: No Falls in past year Last assessed Fall Risk: 11/10/23 Dental Screening Dental Screen Date: 06/22/23 HPI 3 mo follow up HPI Details 78-year-old male with past medical history of hypothyroidism, hyperlipidemia, coronary artery disease, hypogonadism, adrenal insufficiency hypertension, and hyperprolactinemia last seen by Dr. Salamanca June 2023 coming in for follow up.? Patient was seen by Endocrine may twice a day for recommended follow up with neurosurgeon for repeat MRI and follow up with Ophthalmology. Patient states he has seen Neurosurgery and did have the repeat MRI 2 months ago. He has no acute concerns today and feels generally well. 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 Hypogonadism in male Hypogonadism Ischemic cardiomyopathy Thoracic aortic aneurysm Aortic valve regurgitation Hyperlipidemia CAD (coronary artery disease) Surgical History History of gastric surgery History of nephrolithotomy with removal of calculi History of coronary artery stent placement History of cholecystectomy History of appendectomy Family History Father Pulmonary embolism Mother CAD (coronary artery disease) Glaucoma Social History Housing: Other Housing Other:: [facility] Alcohol intake: never Patient Tobacco Use Status: Never used Tobacco e-Cigarette/Vaping Use: Never Used Second Hand Smoke Exposure: No service: No Current occupational status: disabled Cognitive needs: No Hearing needs: No Vision needs: Yes (glasses) Questionnaire Thrive Questionnaire Date Thrive assessed: 06/22/23 I am a: Patient What is your living situation today?: I have a steady place to live Within the past 12 months, did the food you bought not last and you didn't have the money to get more?: Never true Within the past 12 months, did you worry whether your food would run out before you got money to buy more?: Never true Do you have trouble paying for medicines?: No Do you have trouble getting transportation to medical appointments?: No Do you have trouble paying your heating and electricity bill?: No Do you have trouble taking care of your child, family member or friend?: No Do you have trouble with day-to-day activities such as bathing, preparing meals, shopping, managing finances, etc.?: No Are you currently unemployed and looking for a job?: No Are you interested in more education?: No Please select the resources that you would like help with: None THRIVE Score: 0 AUDIT C Alcohol Use Questionnaire (AUDIT-C) 1. How often do you have a drink containing alcohol?: Never 3. How often do you have six or more drinks on one occasion?: Never Total Score: 0 Score Reviewed/Action Taken: Yes SPRING-7 AMB Questionnaire SPRING-7 Date SPRING - 7 assessed: 06/22/23 Source: Developed by Drs. Tito Greene, Brittney Shearer, Toñito Macias and colleagues, with an educational pancho from [employer]. Review of Systems Const Denies body aches, Denies chills, Denies fever(s), Denies headache(s) and Denies poor appetite Eyes Reports no additional complaints ENT Denies headache(s) Card Denies chest pain, Denies lightheadedness and Denies dyspnea Resp Denies dyspnea GI Denies abdominal pain Reports no additional complaints Musc Reports no additional complaints and Denies abnormal gait Skin/Breast Reports system reviewed and no additional complaints, except as documented Neuro Denies abnormal gait and Denies headache(s) Psych Reports no additional complaints Physical exam (Primary Care) Vital Signs: Last Vital Signs Pulse 79 11/10/23 14:33 BP 130/72 11/10/23 14:33 Pulse Ox 97 11/10/23 14:33 Oxygen Delivery Method Room Air 11/10/23 14:33 BMI result Body Mass Index 21.6 Tobacco/Smoking Status: Tobacco use Status Tobacco use date assessed 06/22/23 11/10/23 14:34 Patient Tobacco Use Status Never used Tobacco 11/10/23 14:34 e-Cigarette/Vaping Use Never Used 11/10/23 14:34 Thrive Assessment: Date of Thrive Assessment Date Thrive assessed 06/22/23 11/10/23 14:34 Const General: cooperative, healthy appearing, comfortable and no acute distress Orientation/consciousness: patient oriented x3 HENMT Head: Yes normocephalic Ears: hearing grossly normal bilaterally General nose exam: Normal external nose present Eyes General: appearance normal, both eyes and all related structures Conjunctivae: conjunctivae normal Neck Neck: Yes full ROM and Yes no lymphadenopathy Resp Effort & Inspection: normal respiratory effort Auscultation: clear to auscultation bilaterally, no crackles, no rales, no rhonchi and no wheezes Cardio Rate: regular rate Rhythm: regular rhythm Skin General skin exam: no rashes or lesions noted Neuro General: patient oriented x3 Gait exam (Neuro): Normal gait present Extrem General: Yes normal to inspection, Yes full ROM and No edema Psych Affect: normal affect Attitude: cooperative Insight: Good insight present (Psych) Judgement: Good judgement present (Psych) Assessment and Plan Assessment & Plan (1) Hypothyroidism: Code(s): E03.9 - Hypothyroidism, unspecified Plan: Patient to continue following up with endocrinology with next appointment in a few months. Ordered for updated thyroid labs. Follow up in 4 months. (2) Hypertension: Code(s): I10 - Essential (primary) hypertension Plan: Blood pressure at goal today 130/72. Continue on valsartan. Avoid salt intake and encourage healthy diet and regular exercise. (3) Pituitary macroadenoma: Code(s): D35.2 - Benign neoplasm of pituitary gland Plan: Continue to follow with Neurosurgery. Recent MRI done and we will request results. Plan This note was constructed using voice recognition software. While every effort has been made to ensure accuracy and business services assistant, still areas may have been included sometimes these areas may affect the content or meeting of the given symptoms. Total time spent caring for the patient today was 20 minutes. This includes time spent before the visit reviewing the chart, time spent during the visit, and time spent after the visit and documentation. Orders: Orders Triiodothyronine T3 Free Today E03.9 - Hypothyroidism, unspecified Thyroid Stimulating Hormone Today Z00.00 - Encounter for general adult medical examination without abnormal findings Free T4 (Free Thyroxine) Today Z00.00 - Encounter for general adult medical examination without abnormal findings Coding Level of Care Code Est Pt Level 3 (30630) Diagnoses Hypothyroidism E03.9 Hypertension I10 Pituitary macroadenoma D35.2
== END 2023-11-10 15:01 | disposition home or self-care (01) ==
PROVIDERS: PCP Internal Medicine
DX: E03.9 Hypothyroidism, unspecified (principal); I10 Essential (primary) hypertension; D35.2 Benign neoplasm of pituitary gland
CPT/HCPCS: 99213

== ENCOUNTER 2024-05-02 11:26 | Outpatient (REF) | payer MEDICARE, SELFPAY ==
--- OUTSIDE RECORDS SUMMARY | 2024-05-02 12:42 | XMS_ITS ---
Author Organization [facility] Address Unknown Allergies, Adverse Reactions, Alerts Substance Reaction Status Noted Date Resolved Date Toprol XL active 04/17/2018 Problems Problem Status Start Date End Date MULTIPLE FRACTURES OF RIBS, UNSPECIFIED SIDE, SUBSEQUENT ENCOUNTER FOR FRACTURE WITH ROUTINE HEALING (Primary) (S22.49XD - ICD-10-CM) ACTIVE 04/17/2018 FALL ON AND FROM LADDER, SUB SEQUENT ENCOUNTER (W11.XXXD - ICD-10-CM) ACTIVE 04/17/2018 DIFFICULTY IN WALKING, NOT E LSEWHERE CLASSIFIED (R26.2 - ICD-10-CM) ACTIVE 04/17/2018 ACUTE PAIN DUE TO TRAUMA (G89.11 - ICD-10-CM) ACTIVE 04/17/2018 MUSCLE WEAKNESS (GENERALIZED) (M62.81 - ICD-10-CM) ACT REMEDIOS 04/17/2018 COGNITIVE COMMUNICATION DEFICIT (R41.841 - ICD-10-CM) ACTIVE 04/17/2018 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 with home health services [facility] 04/17/2018 01:50 pm EST - 04/28/2018 04:23 pm EST Immunizations Vaccine Date PCV (Prevnar) 13 12/21/2017 12:00 am EDT Influenza (vial) 12/21/2017 12:00 am EDT Social History
--- OUTSIDE RECORDS SUMMARY | 2024-05-02 12:42 | XMS_ITS ---
Author Organization [facility] Address [address] [place] [address] Care Team Providers Care Program Manager Slp Name Role Phone Spenser Salamanca MD Primary Care Provider UnavailJimmy Cho [phone] REASON FOR VISIT cx 02/25 Encounters Encounter Location Date Provider Diagnosis [facility] [address] [place] [address] 02/25/2024 Jimmy Baez Plan Of Treatment No Information Progress Notes * Tito RAHMANDOB:1945 (79 yo M)Acc No.[id number]:02/25/2024 Patient:?Tito RAHMAN :1945???Age:79 Y???Sex:Male Address:[facility] [address], [place], [address] * true * Date:? Generated for Printi ileana/Nga/eTransmitting on:?05/02/2024 12:41 PM EST
--- OUTSIDE RECORDS SUMMARY | 2024-05-02 12:43 | XMS_ITS | Encounter Summary ---
Author Organization [facility] Address [phone] [facility] [place] [address] Care Team Providers Care Edging Machine Catcher Name Role Phone Unknown, Unknown Primary Care Provider Spenser Vincent MD Primary Care Provider [phone] Encounter Details Date Type Department Care Team (Latest Contact Info) Description 04/27/2018 Transcribe Orders [facility] Specimen Processing [address] [place] [address] Abel De Anda MD 38 [facility] [address], [address] [place] [address] [email or web address] Hyperlipidemia, unspecified hyperlipidemia type (Primary Dx); Gastroesophageal reflux disease, esophagitis presence not specified; Chronic kidney disease, unspecified CKD stage; Coronary artery disease, angina presence unspecified, unspecified vessel or lesion type, unspecified whether nez perce or transplanted heart Social History Tobacco Use Types Packs/Day Years Used Date Smoking Tobacco: Never Assessed Sex and Gender Information Value Date Recorded Sex Assigned at Not on file Gender Identity Not on file Sexual Orientation Not on file documented as of this encounter Plan of Treatment Not on file documented as of this encounter Results * Basic metabolic panel (04/27/2018 5:20 AM EST) SODIUM 142 133 - 146 mmol/L [facility] CHLORIDE 105 96 - 108 mmol/L [facility] POTASSIUM 3.7 3.3 - 5.1 mmol/L [facility] CO2 24 21 - 35 mmol/L [facility] BUN 15 6 - 19 mg/dL [facility] CREATININE 1.10 0.5 - 1.5 mg/dL [facility] GLUCOSE 79 70 - 99 mg/dL [facility] CALCIUM 8.5 8.4 - 10.3 mg/dL [facility] EGFR 67 >59 mL/min/1.7 3m2 [facility] Comment:If patient is black, multiply result by 1.159. Estimated glomerular filtration rate calculated using the CKD-EPI equation. ANION GAP 17 10 - 20 mmol/L [facility] Blood 04/27/2018 5:20 AM EST 04/27/2018 8:18 AM EST Abel De Anda MD LAB BLOOD ORDERABLES [address] [address] * (ABNORMAL) CBC (04/27/2018 5:20 AM EST) WBC 7.05 3.40 - 11.20 K/uL [facility] RBC 3.94(L) 4.50 - 5.50 M/uL [facility] HGB 11.6(L) 13.0 - 17.0 g/dL [facility] HCT 34.9(L) 40.0 - 51.0 % [facility] PLT 348 130 - 400 K/uL [facility] MCV 88.6 79.0 - 98.0 fL [facility] MCH 29.4 27.0 - 34.8 pg [facility] MCHC 33.2 31.5 - 36.0 g/dL [facility] RDW 14.7(H) 10.8 - 14.6 % [facility] MPV 11.0 9.4 - 12.4 [facility] NRBC 0.00 0.00 /100 WBCs [facility] ABSOLUTE NRBC 0.00 0.00 K/uL [facility] Blood 04/27/2018 5:20 AM EST 04/27/2018 8:18 AM EST Abel De Anda MD LAB BLOOD ORDERABLES [address] [place] [address] documented in this encounter Visit Diagnoses Diagnosis Hyperlipidemia, unspecified hyperlipidemia type- Primary Gastroesophageal reflux disease, esophagitis presence not specified Chronic kidney disease, unspecified CKD stage Coronary artery disease, angina presence unspecified, unspecified vessel or lesion type, unspecified whether nez perce or transplanted heart documented in this encounter Care Teams Edging Machine Catcher Relationship Specialty Start Date End Date Unknown, Unknown, MD PCP - General 04/19/18 04/07/19 pSenser Salamanca MD [address] [place] [id number] PCP - General Internal Medicine 04/08/19 documented as of this encounter Additional Source Comments The information contained in this document represents components of the legal health record. It is not the complete legal health record.[facility]
--- OUTSIDE RECORDS SUMMARY | 2024-05-02 12:43 | XMS_ITS ---
Author Organization [facility] Address [address] [place] [address] Care Team Providers Care History Instructor Name Role Phone Spenser Salamanca MD Primary Care Provider Jimmy Nguyen Unavailable [phone] Encounters Encounter Location Date Provider Diagnosis [facility] [address] [place] [address] 02/26/2024 Jimmy Baez Plan Of Treatment No Information Progress Notes * Tito RAHMANDOB:1945 (79 yo M)Acc No.[id number]:02/26/2024 Progress Note Patient:Tito ZURITA Provider:?Jimmy Baez DPM :1945???Age:79 Y???Sex:Male Neptali e:02/26/2024 Address:[facility] [address] [place], [place] [id number] Pcp:Spenser Salamanca MD Subjective: * Chief Complaints: * ??? * Medical History:? Objective: * Vitals:? Assessment: Plan: * Treatment: * Images: * The named appointment provid er may or may not be the originator of this progress note, and it is not deemed complete until electronically signed by the appointment provider. Sign off status: Pending * Provider:?Jimmy Baez DPM Date:?2023 Generated for Delvini ileana/Nga/eTransmitting on:?05/02/2024 12:43 PM EST
--- OUTSIDE RECORDS SUMMARY | 2024-05-02 12:43 | XMS_ITS | Clinical Summary ---
Author Organization [facility] Address [phone] [facility] [place] [address] Care Team Providers Care Armored Truck Driver Name Role Phone Spenser Salamanca MD Primary Care Provider [phone] Social History Tobacco Use Types Packs/Day Years Used Date Smoking Tobacco: Never Assessed Education Answer Date Recorded Are you interested in more education? Not on jaun e 07/18/2022 Are you concerned about learning? Not on file 07/18/2022 No 07/18/2022 No 07/18/2022 Digital Access Answer Date Recorded No 08/16/2022 No 08/16/2022 No 08/16/2022 Reliable internet access at home? Not on file 08/16/2022 Device with a working camera? Not on file Sex and Gender Information Value Date Recorded Sex Assigned at Not on file Gender Identity Not on file Sexual Orientation Not on file Plan of Treatment Health Maintenance Due Date Last Done Comments Adult Td,Tdap Booster 1945 LIPID PANEL 1945 DEPRESSION SCREENING 1959 SMOKING Hx and SMOKELESS TOBACCO SCREENING 01/13/1960 HEPATITIS B SCREENING 1965 HEPATITIS C SCREENING 1965 PNEUMOCOCCAL VACCINES (50+ years) (1 of 1 - PCV) 1997 ZOSTER VACCINES (1 of 2) 1997 RSV VACCINE (1 - 1-dose 75+ series) 2022 INFLUENZA VACCINE (#1) 2023 0, 01/11/2019, 12/29/2017, Additional history exists COVID-19 VACCINE (2 - season) 2023 07/26/2020 HEPATITIS A VACCINES Aged Out No long er eligible based on patient's age to complete this topic HEPATITIS B VACCINES Aged Out No long er eligible based on patient's age to complete this topic HIB VACCINES Aged Out No longer eligi ble based on patient's age to complete this topic MENINGOCOCCAL VACCINES (ACWY) Aged Out No longer eligible based on patient's age to complete this topic Medical Devices Not on file Care Teams Armored Truck Driver Relationship Specialty Start Date End Date Spenser Salamanca MD [address] [place] [address] [place] [address] PCP - General Internal Medicine 04/08/19 Additional Source Comments The information contained in this document represents components of the legal health record. It is not the complete legal health record.[facility]
--- OUTSIDE RECORDS SUMMARY | 2024-05-02 12:43 | XMS_ITS ---
Author Organization [facility] Address [address] [facility] [place] [place] [address] Care Team Providers Care Ballistics Tester Name Role Phone Spenser Salamanca MD Primary Care Provider Jimmy Nguyen Unavailable [phone] Allergies Allergen (clinical drug ingredient) Drug/Non Drug Allergy documented on EMR Reaction Allergy Type Onset Date Status aspirin Aspirin Unknown Drug Allergy Active REASON FOR VISIT At Risk Footcare, Painful Nail(s) aggravated by shoes and causing difficulty standing/walking., Ingrown Nail, Skin problem(s) Medications Medication SIG (Take, Route, Frequency, Duration) Notes Start Date End Date Status Baby Aspirin Active Ammonium Lactate 12 % 1 application Externally to feet except for between the toes Twice a day for 30 days Active Levothyroxine Sodium 50 MCG 1 tablet in the morning on an empty stomach Orally Once a day for 30 day(s) Active Hydrocortisone 10 MG 1 tablet with food or milk Orally every 12 hrs for 30 day(s) Active buPROPion HCl ER (Smoking Det) 150 MG 1 tablet in the morning Orally Once a day for 30 day(s) Active Rosuvastatin Calcium 20 MG 1 tablet Oral ly Once a day for 30 day(s) Not-Taking Social History Tobacco Use: Social History Observation Description Date Details (start date - stop date) Never Smoker NA - NA Tobacco Use/Smoking Question Answer Notes Are you a: nonsmoker Additional Findings: Tobacco Non-User Current no n-smoker Tobacco use other than smoking: Question Answer Notes Are you an other tobacco user? No Vital Signs Height 5 ft 9 in in 11/24/2023 Weight 130 lbs 11/24/2023 BMI 19.2 kg/m2 11/24/2023 Procedures Procedure Date Ordered Date Performed Result Body Sit e 46218-WWDUZVJ NAIL, 6 OR MORE 11/24/2023 N/A 19130-Dineokum Plate 11/24/2023 N/A 46333-PZJW SKIN LESIONS, OVER 4 11/24/2023 N/A Encounters Encounter Location Date Provider Diagnosis [facility] [address] [place] [address] 11/24/2023 Jimmygreta AverySasha Atherosclerosis of [place] artery of both lower extremities, with unspecified presence of clinical manifestation I70.203 ; Tinea unguium B35.1 ; Pain in right toe(s) M79.674 ; Pain in left toe(s) M79.675 ; Ingrown nail L60.0 and Xerosis of skin L85.3 Assessments Encounter Date Diagnosis (ICD Code) Assessment Notes Treatment Notes Treatment Clinical Notes Section Notes 11/24/2023 Atherosclerosis of [place] artery of both lower extremities, with unspecified presence of clinical manifestation (ICD-10 - I70.203) 11/24/2023 Tinea unguium (ICD-10 - B35.1) 11/24/2023 Pain in right toe(s) (ICD-10 - M79.674) 11/24/2023 Pain in left toe(s) (ICD-10 - M79.675) 11/24/2023 Ingrown nail (ICD-10 - L60.0) 11/24/2023 Xerosis of skin (ICD-10 - L85.3) Plan Of Treatment Medication Medication Name Sig Start Date Stop Date Notes Ammonium Lactate 12 % 1 application Exte rnally to feet except for between the toes Twice a day for 30 days Pending Test Test Name Order Date 13023-FZQKVBX NAIL, 6 OR MORE 11/24/2023 97518-Cvxsvbdv Plate 11/24/2023 05603-RBYO SKIN LESIONS, OVER 4 11/24/19 24 Next Appt Details Follow Up: prn, Reason: Procedure Notes * Category Sub-Category Detail Notes Nail Avulsion Procedure A fine sterile e levator was placed between the eponychium, nail fold, and nail plate to separate the structures. A sterile nail splitter, and/or sterile 316 blade, was then used to longitudinally section the nail along its entire length through the eponychium to the area under the nail fold. The offending portion of nail was from the nail bed with a rolling action and then removed with a hemostat. No underlying bone was identified. There was minimal bleeding as hemostasis was achieved through the temporary use of either a digital tourniquet or the aforementioned local with epinephrine. A bacitracin sterile dressing was applied. Local wound aftercare instructions were discussed and dispensed. The patient was informed of both conservative and future surgical procedures to prevent recurrence. Tylenol or Motrin was recommended for pain or discomfort (94935) , CIRCULATION: Pt was advised as to the risk of delayed or nonhealing due to circulation. Pt is to call the office with any questions, concerns, or complications Anesthesia 2cc of 1 percent Lid ocaine Plain local anesthesic utilizing aseptic technique Location Lateral nail border , T5 Debride Nail 6-10 Nail debridement Performance o f this nail treatment by a nonprofessional would put this patients foot and overall health at risk. Therefore, nail debridement was performed extensively to reduce/remove overall nail length, girth, thickness, subungual debris, and necrotic tissue, by manual and/or electrical means through the use of a nail nipper and/or dremel-type lens edge grinder machine, to a more viable healthy nail plate or bed tissue 6-10. Silver nitrate used for any petechial bleeding as necessary. Definitive antifungal treatment options have been reviewed and discussed with the patient. The patient chooses, no pharmaceutical tx - 25117 Keratoma Treatment Parring or Cutting o f Benign Hyperkeratotic Lesion(s) 13484 ( More than 4 Lesions ) - The Benign hyperkeratotic lesions, as described above were pared, and/or cut utilizing a sterile 15 blade, tissue nippers, and/or dremel - 22650 , Q8 Progress Notes * Tito RAHMANDOB:1945 (79 yo M)Acc No.[id number]:11/24/2023 Progress Note Patient:?Tito RAHMAN Provider:?Jimmy Baez DPM :1945???Age:78 Y???Sex:Male Neptali e:11/24/2023 Address:[address] [place] [address] [address], [id number] Pcp:Spenser Salamanca MD Subjective: * Chief Complaints: * ???At Risk FootcarePainful N ail(s) aggravated by shoes and causing difficulty standing/walking.Ingrown NailSkin problem(s) * HPI: ???At Risk footcare:?Pt States Last PCP Visit:?Date?11/02/2023 ???Skin problems:?Nature:?dryness , scaling.?Location:?B/L .?Duration:?several days.?Course:?worse.? * ROS:?General/Constitutional:?Nausea?denies.?Vomiting?denies.?Hunger Thirst?denies.?Loss appetite?denies.?Chills?denies.?Fatigue?denies.?Fever?denies.?Night Sweats?denies.?Unexplained weight loss?denies.?Unexplained weight gain?denies.?HEENTM:?Dentures?denies.?Dizziness?denies.?Glasses/contacts?denies.?Retinopathy?de nies.?Blurred/double vision?denies.?TMJ?denies.?Discharge/drainage?denies.?Implants?denies.?Sore throat?denies.?Dental implants?denies.?Hard of hearing ?denies.?Difficulty chewing/swallowing/speaking?denies.?Nose bleeds?denies.?Sore mouth?denies.?Respiratory:?On Oxygen?denies.?Pneumonia/pleurisy?denies.?Bronchitis?denies.?Emphysema?denies.?C oughing?denies.?Cough blood?denies.?Shortness of breath?denies.?Wheezing?denies.?Cardiovascular:?Pacemaker?denies.?MVP?denies.?WPW?denies.?CHF?denies.?Heart attack?denies.?Septal defect?denies.?Rapid beat?denies.?Chest pain ?denies.?Atrial Fib.?denies.?Murmur/Palpitations?denies.?Gastrointestinal:?Hemorrhoids?denies.?Stomach/Abdominal pain?denies.?Dark blood stool?denies.?Irritable bowel ?denies.?Constipation?denies.?Diarrhea?denies.?Hematology:?Swelling?denies.?Clots?denies.?Varicose Veins?denies.?Bruising?admits, on aspirin.?Bleeding problem?admits.?Genitourinary:?Blood urine?denies.?Frequent/Painfu/urination/bladder control?denies.?Kidney stones?denies.?Infection (UTI)?denies.?Nephropathy?denies.?sex trans dis (STD)?denies.?Prostate?denies.?Musculoskeletal:?Hammertoes?admits.?Bunions?denies.?Back Pain?denies.?Muscle Cramps/ Resting?denies.?Muscle cramps / walking?denies.?Generalized aches and pains?denies.?Weakness?denies.?Integ.:?Kmuar?denies.?Scars?denies.?Corns/calluses?admits.?Ingrown nails?admits.?Painful nails?admits.?Open Sores?denies.?Rashes?denies.?Neurologic:?Difficulty sleeping?denies.?Brain disorder?denies.?Numbness?denies.?Balance trouble?denies.?Confusion?denies.?Fainting/blackouts?denies.?Tingling?denies.?Tr emors?denies.? * Medical History:? * Surgical History:?brain surg shanna Heart stent -2 * Hospitalization/Major Diagno stic Procedure:?[facility] -Fall 2019[facility] -GI Problems 03/2020 * Family History:?Father: dece ased, diagnosed with Family history of arthritis.?Spouse: .? * Social History:?Tobacco Use:?Tobacco Use/Smoking?Are you a:?nonsmoker ?Additional Findings: Tobacco Non-User?Current non-smoker ?Tobacco use other than smoking?Are you an other tobacco user??No ???Miscellaneous:?Caffeine: no. ?Children: yes, 2. ?Exercise: yes, yard work. ?Marital status: . ?Occupation: Retired- [employer]. * Medications:?TakingBaby Aspi rin buPROPion HCl ER (Smoking Det) 150 MG Tablet Extended Release 12 Hour 1 tablet in the morning Orally Once a day Hydrocortisone 10 MG Tablet 1 tablet with food or milk Orally every 12 hrs Levothyroxine Sodium 50 MCG Tablet 1 tablet in the morning on an empty stomach Orally Once a day Taking Baby Aspirin Taking buPROPion HCl ER (Smoking Det) 150 MG Tablet Extended Release 12 Hour 1 tablet in the morning Orally Once a day Taking Hydrocortisone 10 MG Tablet 1 tablet with food or milk Orally every 12 hrs Taking Levothyroxine Sodium 50 MCG Tablet 1 tablet in the morning on an empty stomach Orally Once a day Not-Taking/PRNRosuvastatin Calcium 20 MG Tablet 1 tablet Orally Once a day Medication List reviewed and reconciled with the patientNot-Taking/PRN Rosuvastatin Calcium 20 MG Tablet 1 tablet Orally Once a day Medication List reviewed and reconciled with the patient * Allergies:?Aspirinyes[Allerg ies Verified] Objective: * Vitals:?Ht: 5 ft 9 in, Wt: 1 30, BMI: 19.2, Shoe size: 9, Wt-k.97 kg. * Examination: ???Vascular: ?DP PULSES (B):? 0/4, B/L.?PT PULSES (B):? 0/4, B/L.?CAPILLARY FILL TIME:? delayed, all digits, B/L.?TROPHIC CONDITION-TEXTURE/ELASTICITY/TURGOR/HAIR GROWTH (B):? decreased, B/L.?TEMPERTURE GRADIENT (C):? decreased, cool to cool, proximal to distal, B/L.?PIGMENTATION:?rubrous, B/L.?EDEMA (C):?1/4 , non-pitting , without aching pain , Leg(s) , Ankle(s) , B/L.?CLAUDICATION (C):?denies, B/L.?REST PAIN:?denies, B/L.?Nails: ?NAILS are:? Elongated, overgrown, dystrophic, lytic, greater than 3mm thick, discolored and friable with crumbly malodorous subungual debris, with pain on palpation, 1-5 B/L, Noel-horn appearance 10mm thickness or greater noted, TA, T5, nail plate causing indentation of distal toe, T1, T2, T3, T6, T7, T8, nail plate causing indentation of adjacent toe, T4, T9.?Ingrown Nail: ?INSPECTION:?Reveals nail incurvation, pain on palpation, groove hypertrophy , Lateral nail border , T5.?Dermatologic: ?SKIN FINDINGS:?Skin exam reveals Keratotic lesion(s) located at , Skin exam reveals Keratotic lesion(s) located at, Medial plantar, IPJ, TA, Medial plantar, IPJ, T5, SUB MTH (s), 1, B/L , Heel(s), B/L , Skin shows sign(s) of, dryness, scaling, in a stocking fashion, no fissure(s) present, B/L.?Orthopedic: ?MUSCLE STRENGTH:?5/5 all groups in a symmetrical fashion, B/L.?Neurological: ?SENSORY:?Neurological exam reveals intact sensorium, pain sensation normal, vibration sensation intact, pinprick sensation is normal in the lower extremities, Pt denies, anesthesia, burning, paresthesia, tingling, B/L.?General Examination: ?GENERAL APPEARANCE:?Reveals a pleasant, alert, well nourished, well- developed, well hydrated individual, who demonstrates proper attention to hygiene/body habitus, and is in no acute distress, Pt serves as own historian for office visit today.?ORIENTED:?person, place, and time.? Assessment: * Assessment: 1.?Tinea unguium - B35.1???2 .?Atherosclerosis of [place] artery of both lower extremities, with unspecified presence of clinical manifestation - I70.203???3.?Pain in right toe(s) - M79.674???4.?Pain in left toe(s) - M79.675?? 5.?Ingrown nail - L60.0???Specify :Lateral nail border , T5???6.?Xerosis of skin - L85.3???Specify :Acute problem, Uncomplicated (3),Rx Management (4)??? Plan: * Treatment: 2.?Atherosclerosis of [place] artery of both lower extremities, with unspecified presence of clinical manifestation?Procedure: 75374-VWFF SKIN LESIONS, OVER 4 3.?Ingrown nail?Procedure: 21497-Pfazsqnz Plate 4.?Xerosis of skin? Start Ammonium Lactate Cream, 12 %, 1 application, Externally to feet except for between the toes, Twice a day, 30 days, 60, Refills 2.?? * Procedures:?Debride Nail 6-10:?Nail debridement?Performance of this nail treatment by a nonprofessional would put this patients foot and overall health at risk. Therefore, nail debridement was performed extensively to reduce/remove overall nail length, girth, thickness, subungual debris, and necrotic tissue, by manual and/or electrical means through the use of a nail nipper and/or dremel-type lens edge grinder machine, to a more viable healthy nail plate or bed tissue 6-10. Silver nitrate used for any petechial bleeding as necessary. Definitive antifungal treatment options have been reviewed and discussed with the patient. The patient chooses, no pharmaceutical tx - 52431.?Keratoma Treatment:?Parring or Cutting of Benign Hyperkeratotic Lesion(s)?71711 ( More than 4 Lesions ) - The Benign hyperkeratotic lesions, as described above were pared, and/or cut utilizing a sterile 15 blade, tissue nippers, and/or dremel - 39986 , Q8.?Nail Avulsion:?Location?Lateral nail border?,?T5.?Anesthesia?2cc of 1 percent Lidocaine Plain local anesthesic utilizing aseptic technique.?Procedure?A fine sterile elevator was placed between the eponychium, nail fold, and nail plate to separate the structures. A sterile nail splitter, and/or sterile 316 blade, was then used to longitudinally section the nail along its entire length through the eponychium to the area under the nail fold. The offending portion of nail was from the nail bed with a rolling action and then removed with a hemostat. No underlying bone was identified. There was minimal bleeding as hemostasis was achieved through the temporary use of either a digital tourniquet or the aforementioned local with epinephrine. A bacitracin sterile dressing was applied. Local wound aftercare instructions were discussed and dispensed. The patient was informed of both conservative and future surgical procedures to prevent recurrence. Tylenol or Motrin was recommended for pain or discomfort (58593) , CIRCULATION: Pt was advised as to the risk of delayed or nonhealing due to circulation. Pt is to call the office with any questions, concerns, or complications.? * Procedure Codes:?74409 DEBRI DE NAIL, 6 OR MORE, Modifiers: XS 10413 Avulsion Plate, Modifiers: XS , [id number] TRIM SKIN LESIONS, OVER 4, Modifiers: XS , Q8 * Preventive Medicine:? ??Counseling:?Discussion:?-13: Office or other outpatient visit for the evaluation and management of an established patient, which required a medically appropriate history and/or examination and LOW level of DECISION MAKING for: 1 STABLE ACUTE UNCOMPLICATED PROBLEM, 2 OR MORE MINOR PROBLEMS, OR 1 STABLE CHRONIC PROBLEM, THAT POSE(S) A LOW RISK FOR MORBIDITY/MORTALITY. The visit on the day of the encounter encompassed interpreting the data and educating the patient as to the nature of their condition, treatment options available according to their individual PMH, meds, allergies, and overall health/living conditions, as well as any potential risks or complications that may occur from a failure to adhere to, and participate in, the recommended course of therapy. The discussion included a complete verbal, and/or written explanation of the examination results, any x-rays taken, the proposed diagnosis, and outline of the treatment plan. A schedule for future care needs was also explained. The patient verbalized an understanding of the instructions at this time and agreed to be an active participant in their treatment. If the patient should think of any questions or concerns after the visit, I have encouraged the patient to call the office.?Xerosis:?The patient was counseled on the diagnosis, potential etiologies, and treatment options for their skin condition. We discussed the risks and benefits of each option from performing no treatment, to utilizing OTC topical skin creams/ointments, to utilizing prescription topical creams/ointments, to utilizing customized compounded topical medications and use of nocturnal occlusion with any/all previously detailed therapies. We discussed the advantages and disadvantages of each possible treatment and importance for adherence to all the recommended therapies for optimum success and avoid potential complications such as open sore/infection/possible hospitalization. We discussed the potential effectiveness of each topical preparation as well as each ones possible side effects and/or patient medication interactions. Patient questions re: use, dosage, successful outcomes, and application consistency were reviewed and the patient verbalized that all answers were clearly understood. The patient has decided to apply Rx skin creams to their feet save the interspaces while paying special attention to the heels. Such was sent to their pharmacy at the time of visit.? ??Screening/Special Tests:?Fall Risk?Screening:?No falls in the past year ?FALLS: Screening for Future Fall Risk?Have you had any falls with injury in the past year??No * Follow Up:?prn * Images: * Sign off status: Completed true * Provider:?Jimmy Baez DPM Date:?2023 Generated for Freddy tejeda/Nga/Scaritting on:?05/02/2024 12:43 PM EST History and Physical Notes * HPI (History of Present Illness) Category Sub-Category Detail Notes Category Not es Skin problems Nature: dryness , scaling Location: B/L Duration: several days Course: worse At Risk footcare Pt States Last PCP Visit: Date: 4 Examination Category Sub-Category Detail Notes Category Not es Ingrown Nail INSPECTION: Reveals nail inc urvation, pain on palpation, groove hypertrophy , Lateral nail border , T5 Neurological SENSORY: Neurological exa m reveals intact sensorium, pain sensation normal, vibration sensation intact, pinprick sensation is normal in the lower extremities, Pt denies, anesthesia, burning, paresthesia, tingling, B/L Dermatologic SKIN FINDINGS: Skin exam reveal s Keratotic lesion(s) located at , Skin exam reveals Keratotic lesion(s) located at, Medial plantar, IPJ, TA, Medial plantar, IPJ, T5, SUB MTH (s), 1, B/L , Heel(s), B/L , Skin shows sign(s) of, dryness, scaling, in a stocking fashion, no fissure(s) present, B/L Orthopedic MUSCLE STRENGTH: 5/5 all groups in a symmetrical fashion, B/L General Examination GENERAL APPEARANCE: Reveals a pleasant, alert, well nourished, well-developed, well hydrated individual, who demonstrates proper attention to hygiene/body habitus, and is in no acute distress, Pt serves as own historian for office visit today ORIENTED: person, place, and t danica Vascular DP PULSES (B): 0/4, B/L PT PULSES (B): 0/4, B/L CAPILLARY FILL TIME: delayed, all digits , B/L TEMPERTURE GRADIENT (C): decreased, cool to cool, proximal to distal, B/L TROPHIC CONDITION-TEXTURE/ELASTICITY/TURGOR/HAIR GROWTH (B): decreased, B/L EDEMA (C): 1/4 , non-pitting , without aching pain , Leg(s) , Ankle(s) , B/L CLAUDICATION (C): denies, B/L REST PAIN: denies, B/L PIGMENTATION: rubrous, B/L Nails NAILS are: Elongated, overg rown, dystrophic, lytic, greater than 3mm thick, discolored and friable with crumbly malodorous subungual debris, with pain on palpation, 1-5 B/L, Noel-horn appearance 10mm thickness or greater noted, TA, T5, nail plate causing indentation of distal toe, T1, T2, T3, T6, T7, T8, nail plate causing indentation of adjacent toe, T4, T9
--- OUTSIDE RECORDS SUMMARY | 2024-05-02 12:44 | XMS_ITS | Patient Health Record ---
Author Organization [facility] Address [address] [place] [address] Care Team Providers Care Trains Service Conductor Name Role Phone Spenser Salamanca MD Primary Care Provider Jimmy Nguyen Unavailable [phone] Allergies Allergen (clinical drug ingredient) Drug/Non Drug Allergy documented on EMR Reaction Allergy Type Onset Date Status aspirin Aspirin Unknown Drug Allergy Active Reason For Referral No Information Medications Medication SIG (Take, Route, Frequency, Duration) Notes Start Date End Date Status Baby Aspirin Active Ammonium Lactate 12 % 1 application Externally to feet except for between the toes Twice a day for 30 days Active Rosuvastatin Calcium 20 MG 1 tablet Oral ly Once a day for 30 day(s) Not-Taking Levothyroxine Sodium 50 MCG 1 tablet in the morning on an empty stomach Orally Once a day for 30 day(s) Active Hydrocortisone 10 MG 1 tablet with food or milk Orally every 12 hrs for 30 day(s) Active buPROPion HCl ER (Smoking Det) 150 MG 1 tablet in the morning Orally Once a day for 30 day(s) Active Social History Tobacco Use: Social History Observation Description Date Details (start date - stop date) Never Smoker NA - NA Tobacco Use/Smoking Question Answer Notes Are you a: nonsmoker Additional Findings: Tobacco Non-User Current no n-smoker Alcohol Screen Question Answer Notes Did you have a drink containing alcohol in the p ast year? No Points 0 Interpretation Negative Tobacco use other than smoking: Question Answer Notes Are you an other tobacco user? No Problems Problem Type SNOMED Code ICD Code Onset Dates Problem Status W/U Status Risk Notes Problem [id number] Atherosclerosis of [place] artery of both lower extremities, with unspecified presence of clinical manifestation (I70.203) Active confirmed Vital Signs Height 5 ft 9 in in 11/24/2023 Weight 130 lbs 11/24/2023 BMI 19.2 kg/m2 11/24/2023 Procedures Procedure Date Ordered Date Performed Result Body Sit e 55519-MIHJDQS NAIL, 6 OR MORE 11/24/2023 N/A 43145-Mudqmqvf Plate 11/24/2023 N/A 06469-AKJL SKIN LESIONS, OVER 4 11/24/2023 N/A Encounters Encounter Location Date Provider Diagnosis [facility] [address] 11/24/2023 Jimmy Baez Atherosclerosis of [place] artery of both lower extremities, with unspecified presence of clinical manifestation I70.203 ; Tinea unguium B35.1 ; Pain in right toe(s) M79.674 ; Pain in left toe(s) M79.675 ; Ingrown nail L60.0 and Xerosis of skin L85.[address] [address] 02/25/2024 Jimmy Baez Assessments Encounter Date Diagnosis (ICD Code) Assessment Notes Treatment Notes Treatment Clinical Notes Section Notes 11/24/2023 Tinea unguium (ICD-10 - B35.1) 11/24/2023 Atherosclerosis of [place] artery of both lower extremities, with unspecified presence of clinical manifestation (ICD-10 - I70.203) 11/24/2023 Pain in right toe(s) (ICD-10 - M79.674) 11/24/2023 Pain in left toe(s) (ICD-10 - M79.675) 11/24/2023 Ingrown nail (ICD-10 - L60.0) 11/24/2023 Xerosis of skin (ICD-10 - L85.3) Plan Of Treatment Pending Test Test Name Order Date 69548-YUXWOHW NAIL, 6 OR MORE 01/20/2020 00162-NVLSFCT NAIL, 6 OR MORE 04/27/2020 46583-TPTMKPY NAIL, 6 OR MORE 10/22/2021 42752-NVTQGGX NAIL, 6 OR MORE 01/24/2022 92475-XAJXSCF NAIL, 6 OR MORE 11/24/2023 35075-Ktnemozb Plate 11/24/2023 94733-Zroecwyb Plate 01/24/2022 29755-Zmzzxacj Plate 10/22/2021 05667-Kmjjaxap Plate 01/20/2020 22563-Whfkejab Plate 04/27/2020 13786-Vghrmvtd Plate Each Additional 06/2021 23238-Zmmjepgf Plate Each Additional 04/2021 55107-SDNV SKIN LESIONS, OVER 4 11/24/19 24 06928-AJYA SKIN LESIONS, OVER 4 01/25/20 22 10299-QGTL SKIN LESIONS, OVER 4 10/23/19 22 39804-EWWZ SKIN LESIONS, OVER 4 04/27/19 21 09534-USUA SKIN LESIONS, OVER 4 01/20/20 20 Insurance Providers Payer Name Payer Address Payer Phone Subscriber Number Group Number Insured Name Patient Relationship to Insured Coverage Start Date Coverage End Date [employer] [place] [employer]vantage [facility] [address] [place] [address] [phone] [id number] Tito Roque Self - patient is the insured Medical (General) History Medical History History ICD Code Arthritis Back,Hip,and Knee pain CAD (Cholesterol) Chicken pox Measles Joint implants/screws Heart valve conditions/replacement Thyroid Surgical History Surgery Date(Month/Year) brain surgery Heart stent -2 Hospitalization History Reason Date(Month/Year) [facility] -GI Problems 03/2020 [facility] -Fall 2019
[2024-05-03 17:47] LABS: Triiodothyronine T3 Free 2.7 pg/mL (2.3-4.2)
== END 2024-05-02 11:27 | disposition home or self-care (01) ==
LOC: HO.LAB 11:26
PROVIDERS: Absent Provider Internal Medicine Endocrinology, Diabetes & Metabolism; PCP Internal Medicine
DX: E03.9 Hypothyroidism, unspecified (principal)
CPT/HCPCS: 36415; 84481

== ENCOUNTER 2024-05-05 12:06 | Outpatient (REF) | payer MEDICARE, SELFPAY ==
--- OUTSIDE RECORDS SUMMARY | 2024-05-05 12:24 | XMS_ITS ---
Author Organization [facility] Address [address] [place] [address] Care Team Providers Care Energy Conservation Engineer Name Role Phone Spenser Salamanca MD Primary Care Provider UnavailJimmy Cho [phone] REASON FOR VISIT cx 02/25 Encounters Encounter Location Date Provider Diagnosis [facility] [address] [place] [address] 02/25/2024 Jimmy Baez Plan Of Treatment No Information Progress Notes * Tito RAHMANDOB:1945 (79 yo M)Acc No.[id number]:02/25/2024 Patient:?Tito RAHMAN :1945???Age:79 Y???Sex:Male Address:[facility] [address], [place], [address] * true * Date:? Generated for Printi ileana/Nga/eTransmitting on:?05/05/2024 12:24 PM EST
--- OUTSIDE RECORDS SUMMARY | 2024-05-05 12:24 | XMS_ITS | Patient Health Record ---
Author Organization [facility] Address [address] [place] [address] Care Team Providers Care Forensic Science Technician Name Role Phone Spenser Salamanca MD Primary Care Provider Jimmy Nguyen Unavailable [phone] Allergies Allergen (clinical drug ingredient) Drug/Non Drug [...] Problem Status W/U Status Risk Notes Problem [id number] Atherosclerosis of muck[place] artery of both lower extremities, with unspecified presence of clinical manifestation (I70.203) Active confirmed Vital Signs Height 5 ft 9 in in 11/24/2023 Weight 130 lbs 11/24/2023 BMI 19.2 kg/m2 11/24/2023 Procedures Procedure Date Ordered Date Performed Result Body Sit e 92338-FLFIPHM NAIL, 6 OR MORE 11/24/2023 N/A 52983-Iqcxgovp Plate 11/24/2023 N/A 59607-FFMO SKIN LESIONS, OVER 4 11/24/2023 N/A Encounters Encounter Location Date Provider Diagnosis [facility] [address] 11/24/2023 Jimmy Baez Atherosclerosis of muckleshoot artery of both lower extremities, with unspecified presence of clinical manifestation I70.203 ; Tinea unguium B35.1 ; Pain in right toe(s) M79.674 ; Pain in left toe(s) M79.675 ; Ingrown nail L60.0 and Xerosis of skin L85.[address] [address] 02/25/2024 Jimmy Baez Assessments Encounter Date Diagnosis (ICD Code) Assessment Notes Treatment Notes Treatment Clinical Notes Section Notes 11/24/2023 Tinea unguium (ICD-10 - B35.1) 11/24/2023 Atherosclerosis of mucklesh[place] artery of both lower extremities, with unspecified presence of clinical manifestation (ICD-10 - I70.203) 11/24/2023 Pain in right toe(s) (ICD-10 - M79.674) 11/24/2023 Pain in left toe(s) (ICD-10 - M79.675) 11/24/2023 Ingrown nail (ICD-10 - L60.0) 11/24/2023 Xerosis of skin (ICD-10 - L85.3) Plan Of Treatment Pending Test Test Name Order Date 01102-YEHCWHD NAIL, 6 OR MORE 01/20/2020 15336-JSJFUAD NAIL, 6 OR MORE 04/27/2020 99087-ZFSBKGH NAIL, 6 OR MORE 10/22/2021 75892-PJOBWAU NAIL, 6 OR MORE 01/24/2022 12926-GMRKSOM NAIL, 6 OR MORE 11/24/2023 38939-Rmopgncj Plate 11/24/2023 94099-Opmnbqha Plate 01/24/2022 48397-Ytxromfy Plate 10/22/2021 35496-Dlaibfiu Plate 01/20/2020 67656-Mqawjvmf Plate 04/27/2020 78922-Mslzyyoa Plate Each Additional 06/2021 86975-Amljofsx Plate Each Additional 04/2021 41244-ZGTF SKIN LESIONS, OVER 4 11/24/19 24 10220-QFYP SKIN LESIONS, OVER 4 01/25/20 22 32189-BYOL SKIN LESIONS, OVER 4 10/23/19 22 94966-YKTC SKIN LESIONS, OVER 4 04/27/19 21 33735-RBVT SKIN LESIONS, OVER 4 01/20/20 20 Insurance Providers Payer Name Payer Address Payer Phone Subscriber Number Group Number Insured Name Patient Relationship to Insured Coverage Start Date Coverage End Date [employer] [place] [employer] Advantage [facility] [address] [place] [address] [id number] Tito Roque Self - patient is the insured Medical (General) History Medical History History ICD Code Arthritis Back,Hip,and Knee pain CAD (Cholesterol) Chicken pox Measles Joint implants/screws Heart valve conditions/replacement Thyroid Surgical History Surgery Date(Month/Year) brain surgery Heart stent -2 Hospitalization History Reason Date(Month/Year) [facility] -GI Problems 03/2020 [facility] -Fall 2019
--- OUTSIDE RECORDS SUMMARY | 2024-05-05 12:24 | XMS_ITS ---
Author Organization [facility] Address [address] [place] [address] Care Team Providers Care Store Sales Leader Name Role Phone Spenser Salamanca MD Primary Care Provider Jimmy Nguyen Unavailable [phone] Encounters Encounter Location Date Provider Diagnosis [facility] [address] [place] [address] 02/26/2024 Jimmy Baez Plan Of Treatment No Information Progress Notes * Tito RAHMANDOB:1945 (79 yo M)Acc No.[id number]:02/26/2024 Progress Note Patient:Tito ZURITA Provider:?Jimmy Baez DPM :1945???Age:79 Y???Sex:Male Neptali e:02/26/2024 Address:[facility] [address] [place], [place] [id number] Pcp:Spenser Salamanca MD Subjective: * Chief Complaints: [...] Baez DPM Date:?2023 Generated for Delvini ileana/Nga/eTransmitting on:?05/05/2024 12:24 PM EST
--- OUTSIDE RECORDS SUMMARY | 2024-05-05 12:24 | XMS_ITS ---
Author Organization [facility] Address [address] [facility] [place] [address] Care Team Providers Care Audograph Operator Name Role Phone Spenser Salamanca MD Primary Care Provider Jimmy Nguyen Unavailable [phone] Allergies Allergen (clinical drug ingredient) Drug/Non Drug [...] Ordered Date Performed Result Body Sit e 72318-FIZODVD NAIL, 6 OR MORE 11/24/2023 N/A 18088-Yivoxxub Plate 11/24/2023 N/A 83596-CENW SKIN LESIONS, OVER 4 11/24/2023 N/A Encounters Encounter Location Date Provider Diagnosis [facility] [place] [address] [place] [address] 11/24/2023 Jimmygreta AverySasha Atherosclerosis of shoshone[place]bannock artery of both lower extremities, with unspecified presence of clinical manifestation I70.203 ; Tinea unguium B35.1 ; Pain in right toe(s) M79.674 ; Pain in left toe(s) M79.675 ; Ingrown nail L60.0 and Xerosis of skin L85.3 Assessments Encounter Date Diagnosis (ICD Code) Assessment Notes Treatment Notes Treatment Clinical Notes Section Notes 11/24/2023 Atherosclerosis of shoshone[place]bann[place] artery of both lower extremities, with unspecified [...] days Pending Test Test Name Order Date 02874-LSPPFLY NAIL, 6 OR MORE 11/24/2023 29716-Xjgcdxoc Plate 11/24/2023 48771-BGJG SKIN LESIONS, OVER 4 11/24/19 24 Next [...] Motrin was recommended for pain or discomfort (37199) , CIRCULATION: Pt was advised as to [...] use of a nail nipper and/or dremel-type milk powder grinder, to a more viable healthy nail plate or bed tissue 6-10. Silver nitrate used for any petechial bleeding as necessary. Definitive antifungal treatment options have been reviewed and discussed with the patient. The patient chooses, no pharmaceutical tx - 10998 Keratoma Treatment Parring or Cutting o f Benign Hyperkeratotic Lesion(s) 26837 ( More than 4 Lesions ) - The Benign hyperkeratotic lesions, as described above were pared, and/or cut utilizing a sterile 15 blade, tissue nippers, and/or dremel - 12386 , Q8 Progress Notes * Tito RAHMANDOB:1945 (79 yo M)Acc No.[id number]:11/24/2023 Progress Note Patient:?Tito RAHMAN Provider:?Jimmy Baez DPM :1945???Age:78 Y???Sex:Male Neptali e:11/24/2023 Address:[address] [place] [address] [address], [facility] Pcp:Spenser Salamanca MD Subjective: * Chief Complaints: [...] Cramps/ Resting?denies.?Muscle cramps / walking?denies.?Generalized aches and pains?denies.?Weakness?denies.?Integ.:?Kumar?denies.?Scars?denies.?Corns/calluses?admits.?Ingrown nails?admits.?Painful nails?admits.?Open Sores?denies.?Rashes?denies.?Neurologic:?Difficulty sleeping?denies.?Brain disorder?denies.?Numbness?denies.?Balance trouble?denies.?Confusion?denies.?Fainting/blackouts?denies.?Tingling?denies.?Tr emors?denies.? * Medical History:? * Surgical History:?brain surg shanna Heart stent -2 * Hospitalization/Major Diagno stic Procedure:?[facility] -Fall 2019[facility] -GI Problems [...] Assessment: 1.?Tinea unguium - B35.1???2 .?Atherosclerosis of shoshone-bannock artery of both lower extremities, with unspecified presence of clinical manifestation - I70.203???3.?Pain in right toe(s) - M79.674???4.?Pain in left toe(s) - M79.675?? 5.?Ingrown nail - L60.0???Specify :Lateral nail border , T5???6.?Xerosis of skin - L85.3???Specify :Acute problem, Uncomplicated (3),Rx Management (4)??? Plan: * Treatment: 2.?Atherosclerosis of shoshone-bannock artery of both lower extremities, with unspecified presence of clinical manifestation?Procedure: 83414-BDCQ SKIN LESIONS, OVER 4 3.?Ingrown nail?Procedure: 94250-Oiesjyyo Plate 4.?Xerosis of skin? Start Ammonium Lactate [...] use of a nail nipper and/or dremel-type milk powder grinder, to a more viable healthy nail plate or bed tissue 6-10. Silver nitrate used for any petechial bleeding as necessary. Definitive antifungal treatment options have been reviewed and discussed with the patient. The patient chooses, no pharmaceutical tx - 20865.?Keratoma Treatment:?Parring or Cutting of Benign Hyperkeratotic Lesion(s)?11301 ( More than 4 Lesions ) - The Benign hyperkeratotic lesions, as described above were pared, and/or cut utilizing a sterile 15 blade, tissue nippers, and/or dremel - 07289 , Q8.?Nail Avulsion:?Location?Lateral nail border?,?T5.?Anesthesia?2cc of 1 [...] Motrin was recommended for pain or discomfort (37634) , CIRCULATION: Pt was advised as to the risk of delayed or nonhealing due to circulation. Pt is to call the office with any questions, concerns, or complications.? * Procedure Codes:?60540 DEBRI DE NAIL, 6 OR MORE, Modifiers: XS 02751 Avulsion Plate, Modifiers: XS , [id number] TRIM SKIN LESIONS, OVER 4, Modifiers: XS [...] Baez DPM Date:?2023 Generated for Freddy tejeda/Nga/Scaritting on:?05/05/2024 12:24 PM EST History and Physical Notes * [...]
[2024-05-05 13:09] LABS: Hematocrit 43.3 % (42.0-52.0); Hemoglobin 14.6 g/dl (14.0-18.0)
[2024-05-05 14:10] LABS: Prostate Specific Antigen 0.41 ng/mL (<0.05-4.0)
[2024-05-05 14:11] LABS: Free T4 (Free Thyroxine) 0.91 ng/dL (0.71-1.85); Thyroid Stimulating Hormone 11.76 uIU/mL (0.32-4.0)
[2024-05-15 12:44] LABS: Testosterone, Free 54.4 pg/mL (30.0-135.0); Testosterone, Total 508 ng/dL (250-1100)
== END 2024-05-05 12:07 | disposition home or self-care (01) ==
LOC: HO.LAB 12:06
PROVIDERS: PCP Internal Medicine; Visit Provider Internal Medicine Endocrinology, Diabetes & Metabolism
DX: E03.9 Hypothyroidism, unspecified (principal); E29.1 Testicular hypofunction; D35.2 Benign neoplasm of pituitary gland; E03.8 Other specified hypothyroidism; E22.1 Hyperprolactinemia; Z12.5 Encounter for screening for malignant neoplasm of prostate
CPT/HCPCS: 36415; 84153; 84402; 84403; 84439; 84443; 85014; 85018

== ENCOUNTER 2024-05-10 14:17 | Outpatient (AMB) | payer MEDICARE, SELFPAY ==
--- NOTE | 2024-05-10 14:18 | A.OFFVIS_ITS ---
Vital Signs 05/10/24 14:21 Height 5 ft 5 in Weight 139 lb 15.896 oz BMI 23.3 BP 134/64 Blood Pressure Location Lt brachial Position Sitting Pulse 77 Pulse Source Pulse Oximeter Pulse Oximetry (%) 97 Oxygen Delivery Method Room Air Intake Visit Reasons: f/u pituitary adenoma /grijalva hypopit Intake Note: Patient present today for Pituitary macroadenoma follow up visit. Glost Kiln Placer Required: No Accompanied by: Self / Same As Patient Allergies metoprolol [From Toprol XL] Allergy (Unknown, Verified 05/10/24 14:21) tachycardia Medication List - Last Reconciled 05/10/24 by Tito Shetty MD aspirin (Adult Low Dose Aspirin) 81 mg PO DAILY bupropion HCl (smoking deter) 150 mg PO DAILY hydrocortisone 10 mg PO DAILY hydrocortisone 5 mg PO DAILY hydrocortisone sod succ (PF) (Solu-Cortef Act-O-Vial (PF)) 100 mg (2 mL) IM ONCE levothyroxine 112 mcg PO DAILY miscellaneous medical supply 1 ea miscellaneous DAILY testosterone 30 mg/actuation (1.5 mL) 4 pumps transdermal DAILY 30 days valsartan 20 mg (1/2 x 40 mg) PO BID HPI Comments Details: 79 YO Male with PMHx 3.3 cm sellar mass s/p resection, now with regrowth, with resultant panhypopituitarism who is seen in F/U. The patient had a large bilobed intra and suprasellar mass measuring 2.3 x 3.3 cm with mass effect on the optic chiasm which was diagnosed in 2014 after he presented with occular symptoms. He had resection of this mass in early 2015 at [facility] in [place], [place] by Dr. Agee. The complete mass was unable to be resected so he had stereotactic radiation therapy shortly after. He reports that this was a benign pituitary lesion, but unfortunately no path report is available. He was formerly followed by Traffic Control Officer Jian Rahman at [facility]. He chose to switch to a different physician given proximity to his home. 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 He was started on Hydrocortisone 20 mg PO q am with 10 mg PO q pm. He was also started on Levothyroxine 100 mcg PO daily, and androgel supplementation. He was only able to continue the androgel for 3 months after which time it became too expensive for him, so he then remained off supplementation for 2 years. In mid 2019 he decreased his dose of Hydrocortisone to 10 mg q AM and 5 mg q PM. He thereafter began having episodes of LOC and orthostatic symptoms, as well as weight loss. He has had 4 trips to the ER due to LOC since that time. His dose of Hydrocortisone was never increased further, but the episodes of LOC did resolve spontaneously. His previous Traffic Control Officer recommended IM testosterone injections monthly, but the patient had adamantly refused this. He did have labs which revealed completely absent testosterone by his PCP, and he was subsequently referred to Endocrinology here at [facility]. Labs were repeated and confirmed absent testosterone levels and evidence of hypogonadotropic hypogonadism. He was started on Testosterone Logging Supervisor Solution 90 mg daily (3 pumps of 30 mg/environmental systems coordinator per shoulder every morning). He does take his Levothyroxine correctly, first thing in the morning on an empty stomach. He waits 1 hour to eat and at least 30 minutes to take his other medications. He does report being poorly compliant with this. He also had his Pituitary MRI repeated 12/30/18 which reveals regrowth of the sellar mass, now measuring 2.5 cm. There is no mention of compression of the optic apparatus. He was referred to his Neurosurgeon Dr. Agee, who he has been following with regularly. He then had a repeat MRI 01/11/2020 which revealed the mass now measuring 2.7 cm, and unchanged from prior. His repeat MRIs are ordered by his Neurosurgeon who he follows with regularly. Most recent 02/27/2022 revealing a 2.7 cm mass. He does mention that his energy level has improved since starting the Testosterone. He has had no further episodes of LOC. He denies any leg pain, blood clots, or shortness of breath. He denies any weak urinary stream or difficulty initiating urination. He reports that he does have his medical ID bracelet as well as his [employer] emergency kit. 09/28/18 Total Testosterone <1 Free Testosterone = Unable to calculate MRI Brain 12/30/18 FINDINGS: The previously seen large sellar/suprasellar mass present on the March 06, 2015 exam has been resected. There is a heterogeneously enhancing recurrent/residual lesion measuring 2.5 x 1.0 x 1.9 cm which expands and fills the width of the sella and bulges into the medial aspect of the right cavernous sinus. The normal pituitary gland is not well resolved separate from this lesion but is possibly seen on series 10 image 03/17 to the left of midline. The infundibulum is thinned and inserts to the left of midline. The normal posterior pituitary bright spot is not seen. There is no mass effect on the optic apparatus. The cavernous segments of the bilateral internal carotid arteries are preserved. There is no acute infarct, hemorrhage, parenchymal mass, or extra-axial fluid collection. Postoperative findings of right pterional craniotomy are noted with some encephalomalacic changes seen in the right frontal lobe. 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 There is diffuse brain parenchymal volume loss with some commensurate prominence of the ventricles and sulci. Moderate foci of T2 hyperintensity are seen throughout the bilateral cerebral white matter most compatible with microangiopathy. No unexpected parenchymal enhancement is seen. A mild degree of pachymeningeal enhancement is seen about the right frontal convexity, presumably postoperative. The extracranial structures are within normal limits allowing for the postoperative findings. No paranasal sinus or mastoid fluid is seen. IMPRESSION: - Interval resection of large sellar/suprasellar mass seen on the March 06, 2015 and MRI. Residual/recurrent expansile enhancing lesion within the sella extending into the medial aspect of the right cavernous sinus which measures up to 2.5 cm. The pituitary gland is not well resolved separate from the lesion but is possibly seen in the left aspect of the sella as detailed above. The infundibulum is diffusely thinned. No mass effect on the optic apparatus. Cavernous carotid flow voids are well preserved. - Postoperative findings of right pterional craniotomy noted. - No acute intracranial abnormality. MRI Brain 03/06/15 FINDINGS: There is a bilobed intra- and suprasellar mass lesion that measures at least 2.3 (AP) x 3.3 (TV) x (SI) centimeters. This extends into the cavernous sinus on both sides with lateral displacement of the cavernous carotid arteries. There is significant mass effect on the optic chiasm, pre-and post chiasmatic optic nerves, hypothalamus, infundibulum, and anterior recess of the third ventricle. [place] of [place] vessels are also displaced. Chronic small vessel ischemic changes are seen throughout the supratentorial white matter along with a small chronic lacunar infarct in the right cerebellum. Mild ventricular prominence probably reflects an element of central volume loss. No focal reduced diffusion is seen to suggest acute or subacute cerebral ischemia. No intracerebral edema, intra-axial blood products, midline shift, or extra-axial collection is visualized. The paranasal sinuses are well aerated. Labs: Laboratory Tests 04/21/22 04/21/22 04/21/22 08:57 08:57 08:57 Sodium 139 Potassium 4.1 Creatinine 1.25 Estimated GFR 56 Osmolality 292 Prostate Specific Ag 0.29 TSH 4.91 H Free T4 1.29 Random Cortisol ACTH Pending 04/21/22 08:57 Sodium Potassium Creatinine Estimated GFR Osmolality Prostate Specific Ag TSH Free T4 Random Cortisol 22.7 ACTH C/O worsening vision in L eye. . No problem with urination stream. Low energy level. No orthostatic sx. No libido . on hydrocortisone 10 in the morning and 5 in the evening. On testosterone gel 4 pumps per day. Also on levothyroxine 112 mcg q.d.for some time . Sees Dr. Agee . 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 Hypogonadism in male Hypogonadism Ischemic cardiomyopathy Thoracic aortic aneurysm Aortic valve regurgitation Hyperlipidemia CAD (coronary artery disease) Surgical History History of gastric surgery History of nephrolithotomy with removal of calculi History of coronary artery stent placement History of cholecystectomy History of appendectomy Family History Father Pulmonary embolism Mother CAD (coronary artery disease) Glaucoma Social History Housing: Other [facility] Alcohol intake: never Patient Tobacco Use Status: Never used Tobacco e-Cigarette/Vaping Use: Never Used Second Hand Smoke Exposure: No service: No Current occupational status: disabled Cognitive needs: No Hearing needs: No Vision needs: Yes (glasses) Physical Exam Const Other: There is visual field loss intact by gross confrontation. Thyroid gland is normal size weighs about 15 g . There are no thyroid nodules palpated. Rectal examination reveals normal size prostate without the presence of any masses Assessment & Plan Assessment & Plan (1) Hypogonadotropic hypogonadism: Code(s): E23.0 - Hypopituitarism Category: Medical Plan: See plan below (2) Pituitary macroadenoma: Code(s): D35.2 - Benign neoplasm of pituitary gland Category: Medical Plan: This is a 79-year-old white male with a history of a pituitary macroadenoma followed by Neurosurgery status post pituitary surgery with development of secondary hypogonadism, secondary adrenal insufficiency. He also has hypothyroidism but has been able to mount a reasonable TSH suggesting that the hypothyroidism is primary not secondary. He is currently replaced on hydrocortisone 10 mg in the morning and 5 mg in the evening as well as levothyroxine 112 mcg and testosterone gel 4 pumps per day The plan is to talk to the patient about increase levothyroxine to 112 mcg and rechecking TSH and free T4 in 6 weeks time. will recheck testosterone level in 6 weeks once patient is consistent with taking testosterone.. Also told patient to call Dr. Agee neurosurgeon to schedule follow-up appointment . will also repeat MRI of the pituitary . Will try to obtain notes from Dr. Agee (3) Secondary adrenal insufficiency: Code(s): E27.49 - Other adrenocortical insufficiency Category: Medical Plan: See plan for pituitary (4) Hypothyroidism: Code(s): E03.9 - Hypothyroidism, unspecified Category: Medical Plan: See plan for hypopituitarism Orders: Orders Thyroid Stimulating Hormone 6 Weeks E03.9 - Hypothyroidism, unspecified Free T4 (Free Thyroxine) 6 Weeks E03.9 - Hypothyroidism, unspecified MR head/brain wo/w con Today D35.2 - Benign neoplasm of pituitary gland Medications: New levothyroxine 125 mcg PO DAILY 30 tabs 5RF Refilled testosterone 30 mg/actuation (1.5 mL) 4 pumps transdermal DAILY 30 days 90 mL 2RF Discontinued levothyroxine Discontinued Reason: Doctor's Order 112 mcg PO DAILY 90 tabs 1RF Coding Level of Care Code Est Pt Level 3 (79048) Diagnoses Hypogonadotropic hypogonadism E23.0 Pituitary macroadenoma D35.2 Secondary adrenal insufficiency E27.49 Hypothyroidism E03.9
[2024-05-10 14:21] VITALS: BP 134/64; PULSE 77; O2SAT 97; BMI 23.3
--- OUTSIDE RECORDS SUMMARY | 2024-05-10 15:19 | XMS_ITS | Clinical Summary ---
Author Organization [facility] Address [phone] [facility] [place] [address] Care Team Providers Care Packaging Line Attendant Name Role Phone Spenser Salamanca MD Primary Care Provider [phone] Social History Tobacco Use Types Packs/Day Years [...] Medical Devices Not on file Care Teams Packaging Line Attendant Relationship Specialty Start Date End Date Spenser Salamanca MD [address] [place] [address] [facility] [place] [address] PCP - General Internal Medicine 04/08/19 Additional Source Comments The information contained in this document represents components of the legal health record. It is not the complete legal health record.[facility]
--- OUTSIDE RECORDS SUMMARY | 2024-05-10 15:19 | XMS_ITS ---
Author Organization [facility] Address [address] [place] [address] Care Team Providers Care Line Service Attendant Name Role Phone Spenser Salamanca MD Primary Care Provider UnavailJimmy Cho [phone] REASON FOR VISIT cx 02/25 Encounters Encounter Location Date Provider [facility] [address] [place] [address] 02/25/2024 Jimmy Baez Plan Of Treatment No Information Progress Notes * Tito RAHMANDOB:1945 (79 yo M)Acc No.[id number]:02/25/2024 Patient:?Tito RAHMAN :1945???Age:79 Y???Sex:Male Address:[facility] [address], [place], [address] * true * Date:? Generated for Printi ileana/Nga/eTransmitting on:?05/10/2024 03:19 PM EST
--- OUTSIDE RECORDS SUMMARY | 2024-05-10 15:19 | XMS_ITS ---
Author Organization [facility] Address [address] [place] [address] Care Team Providers Care Die Repair Machinist Name Role Phone Spenser Salamanca MD Primary Care Provider Jimmy Nguyen Unavailable [phone] Encounters Encounter Location Date Provider Diagnosis [facility] [address] [place] [address] 02/26/2024 Jimmy Baez Plan Of Treatment No Information Progress Notes * Tito RAHMANDOB:1945 (79 yo M)Acc No.[id number]:02/26/2024 Progress Note Patient:Tito ZURITA Provider:?Jimmy Baez DPM :1945???Age:79 Y???Sex:Male Neptali e:02/26/2024 Address:[facility] [address] [place], [place] [address] Pcp:Spenser Salamanca MD Subjective: * Chief Complaints: [...] Baez DPM Date:?2023 Generated for Delvini ileana/Nga/eTransmitting on:?05/10/2024 03:19 PM EST
--- OUTSIDE RECORDS SUMMARY | 2024-05-10 15:20 | XMS_ITS | Encounter Summary ---
Author Organization [facility] Address [phone] [facility] [place] [address] Care Team Providers Care Stock Preparation Supervisor Name Role Phone Unknown, Unknown Primary Care Provider Spenser Vincent MD Primary Care Provider [phone] Encounter Details Date Type Department Care Team (Latest Contact Info) Description 04/27/2018 Transcribe Orders [facility] Specimen Processing [address] [place] [address] Abel De Anda MD [address] [facility] [address], [address] [place] [address] [email or web address] Hyperlipidemia, unspecified hyperlipidemia type (Primary Dx); Gastroesophageal reflux disease, esophagitis presence not specified; Chronic kidney disease, unspecified CKD stage; Coronary artery disease, angina presence unspecified, unspecified vessel or lesion type, unspecified whether sitka or transplanted heart Social History Tobacco Use [...] EST) SODIUM 142 133 - 146 mmol/L [facility] CHLORIDE 105 96 - 108 mmol/L [facility] POTASSIUM 3.7 3.3 - 5.1 mmol/L [facility] CO2 24 21 - 35 mmol/L [facility] BUN 15 6 - 19 mg/dL [facility] CREATININE 1.10 0.5 - 1.5 mg/dL [facility] GLUCOSE 79 70 - 99 mg/dL [facility] CALCIUM 8.5 8.4 - 10.3 mg/dL [facility] EGFR 67 >59 mL/min/1.7 3m2 [facility] Comment:If patient is black, multiply result by 1.159. Estimated glomerular filtration rate calculated using the CKD-EPI equation. ANION GAP 17 10 - 20 mmol/L [facility] Blood 04/27/2018 5:20 AM EST 04/27/2018 8:18 AM EST Abel De Anda MD LAB BLOOD ORDERABLES [address] [address] * (ABNORMAL) CBC (04/27/2018 5:20 AM EST) WBC 7.05 3.40 - 11.20 K/uL [facility] RBC 3.94(L) 4.50 - 5.50 M/uL [facility] HGB 11.6(L) 13.0 - 17.0 g/dL [facility] HCT 34.9(L) 40.0 - 51.0 % [facility] PLT 348 130 - 400 K/uL [facility] MCV 88.6 79.0 - 98.0 fL [facility] MCH 29.4 27.0 - 34.8 pg [facility] MCHC 33.2 31.5 - 36.0 g/dL [facility] RDW 14.7(H) 10.8 - 14.6 % [facility] MPV 11.0 9.4 - 12.4 [facility] NRBC 0.00 0.00 /100 WBCs [facility] ABSOLUTE NRBC 0.00 0.00 K/uL [facility] Blood 04/27/2018 5:20 AM EST 04/27/2018 8:18 AM EST Abel De Anda MD LAB BLOOD ORDERABLES [address] [place] [address] documented in this encounter Visit Diagnoses Diagnosis Hyperlipidemia, unspecified hyperlipidemia type- Primary Gastroesophageal reflux disease, esophagitis presence not specified Chronic kidney disease, unspecified CKD stage Coronary artery disease, angina presence unspecified, unspecified vessel or lesion type, unspecified whether sitka or transplanted heart documented in this encounter Care Teams Stock Preparation Supervisor Relationship Specialty Start Date End Date Unknown, Unknown, MD PCP - General 04/19/18 04/07/19 Spenser Salamanca MD [address] [place] [id number] PCP - General Internal Medicine 04/08/19 documented as of this encounter Additional Source Comments The information contained in this document represents components of the legal health record. It is not the complete legal health record.[facility]
--- OUTSIDE RECORDS SUMMARY | 2024-05-10 15:20 | XMS_ITS ---
Author Organization [facility] Address [address] [facility] [place] [address] Care Team Providers Care Kosher Butcher Name Role Phone Spenser Salamanca MD Primary Care Provider Jimmy Nguyen Unavailable [phone] Allergies Allergen (clinical drug ingredient) Drug/Non Drug [...] Ordered Date Performed Result Body Sit e 49888-QEIJSOR NAIL, 6 OR MORE 11/24/2023 N/A 82822-Lrhosaro Plate 11/24/2023 N/A 41964-OMAP SKIN LESIONS, OVER 4 11/24/2023 N/A Encounters Encounter Location Date Provider Diagnosis [facility] [place] [address] [place] [address] 11/24/2023 Jimmygreta AverySasha Atherosclerosis of solomon artery of both lower extremities, with unspecified presence of clinical manifestation I70.203 ; Tinea unguium B35.1 ; Pain in right toe(s) M79.674 ; Pain in left toe(s) M79.675 ; Ingrown nail L60.0 and Xerosis of skin L85.3 Assessments Encounter Date Diagnosis (ICD Code) Assessment Notes Treatment Notes Treatment Clinical Notes Section Notes 11/24/2023 Atherosclerosis of solomon artery of both lower extremities, with unspecified [...] days Pending Test Test Name Order Date 18354-JMBINYO NAIL, 6 OR MORE 11/24/2023 39410-Nbnxuwkj Plate 11/24/2023 03493-KQGJ SKIN LESIONS, OVER 4 11/24/19 24 Next [...] Motrin was recommended for pain or discomfort (29984) , CIRCULATION: Pt was advised as to [...] use of a nail nipper and/or dremel-type tool and cutter grinder, to a more viable healthy nail plate or bed tissue 6-10. Silver nitrate used for any petechial bleeding as necessary. Definitive antifungal treatment options have been reviewed and discussed with the patient. The patient chooses, no pharmaceutical tx - 61536 Keratoma Treatment Parring or Cutting o f Benign Hyperkeratotic Lesion(s) 52142 ( More than 4 Lesions ) - The Benign hyperkeratotic lesions, as described above were pared, and/or cut utilizing a sterile 15 blade, tissue nippers, and/or dremel - 60548 , Q8 Progress Notes * Tito RAHMANDOB:1945 (79 yo M)Acc No.[id number]:11/24/2023 Progress Note Patient:?Tito RAHMAN Provider:?Jimmy Baez DPM :1945???Age:78 Y???Sex:Male Neptali e:11/24/2023 Address:[address] [place] [address] [address], [facility] Pcp:Spenser Salamanca MD Subjective: * Chief Complaints: [...] Heart stent -2 * Hospitalization/Major Diagno stic Procedure:?[facility] -Fall 2019[facility] -GI Problems [...] Assessment: 1.?Tinea unguium - B35.1???2 .?Atherosclerosis of solomon artery of both lower extremities, with unspecified presence of clinical manifestation - I70.203???3.?Pain in right toe(s) - M79.674???4.?Pain in left toe(s) - M79.675?? 5.?Ingrown nail - L60.0???Specify :Lateral nail border , T5???6.?Xerosis of skin - L85.3???Specify :Acute problem, Uncomplicated (3),Rx Management (4)??? Plan: * Treatment: 2.?Atherosclerosis of solomon artery of both lower extremities, with unspecified presence of clinical manifestation?Procedure: 01870-KWDN SKIN LESIONS, OVER 4 3.?Ingrown nail?Procedure: 30383-Wvfjgchn Plate 4.?Xerosis of skin? Start Ammonium Lactate [...] use of a nail nipper and/or dremel-type tool and cutter grinder, to a more viable healthy nail plate or bed tissue 6-10. Silver nitrate used for any petechial bleeding as necessary. Definitive antifungal treatment options have been reviewed and discussed with the patient. The patient chooses, no pharmaceutical tx - 62671.?Keratoma Treatment:?Parring or Cutting of Benign Hyperkeratotic Lesion(s)?08902 ( More than 4 Lesions ) - The Benign hyperkeratotic lesions, as described above were pared, and/or cut utilizing a sterile 15 blade, tissue nippers, and/or dremel - 64787 , Q8.?Nail Avulsion:?Location?Lateral nail border?,?T5.?Anesthesia?2cc of 1 [...] Motrin was recommended for pain or discomfort (48533) , CIRCULATION: Pt was advised as to the risk of delayed or nonhealing due to circulation. Pt is to call the office with any questions, concerns, or complications.? * Procedure Codes:?97887 DEBRI DE NAIL, 6 OR MORE, Modifiers: XS 56896 Avulsion Plate, Modifiers: XS , I039402 TRIM SKIN LESIONS, OVER 4, Modifiers: XS [...] Baez DPM Date:?2023 Generated for Freddy tejeda/Nga/Scaritting on:?05/10/2024 03:19 PM EST History and Physical Notes * [...]
--- OUTSIDE RECORDS SUMMARY | 2024-05-10 15:20 | XMS_ITS | Patient Health Record ---
Author Organization [facility] Address [address] [place] [address] Care Team Providers Care Grain Elevator Worker Name Role Phone Spenser Salamanca MD Primary Care Provider Jimmy Nguyen Unavailable [phone] Allergies Allergen (clinical drug ingredient) Drug/Non Drug [...] Problem Status W/U Status Risk Notes Problem 511823066401508 Atherosclerosis of [place] artery of both lower extremities, with unspecified presence of clinical manifestation (I70.203) Active confirmed Vital Signs Height 5 ft 9 in in 11/24/2023 Weight 130 lbs 11/24/2023 BMI 19.2 kg/m2 11/24/2023 Procedures Procedure Date Ordered Date Performed Result Body Sit e 95942-YNFCBLE NAIL, 6 OR MORE 11/24/2023 N/A 97204-Cvdcebpb Plate 11/24/2023 N/A 59693-CQJX SKIN LESIONS, OVER 4 11/24/2023 N/A Encounters Encounter Location Date Provider Diagnosis [facility] [address] 11/24/2023 Jimmy Baez Atherosclerosis of [place] artery of both lower extremities, with unspecified presence of clinical manifestation I70.203 ; Tinea unguium B35.1 ; Pain in right toe(s) M79.674 ; Pain in left toe(s) M79.675 ; Ingrown nail L60.0 and Xerosis of skin L85.[address] [address] 02/25/2024 Jimmy Baez Assessments Encounter Date Diagnosis (ICD Code) Assessment Notes Treatment Notes Treatment Clinical Notes Section Notes 11/24/2023 Tinea unguium (ICD-10 - B35.1) 11/24/2023 Atherosclerosis of [place] artery of both lower extremities, with unspecified presence of clinical manifestation (ICD-10 - I70.203) 11/24/2023 Pain in right toe(s) (ICD-10 - M79.674) 11/24/2023 Pain in left toe(s) (ICD-10 - M79.675) 11/24/2023 Ingrown nail (ICD-10 - L60.0) 11/24/2023 Xerosis of skin (ICD-10 - L85.3) Plan Of Treatment Pending Test Test Name Order Date 78000-JJRZTUF NAIL, 6 OR MORE 01/20/2020 23685-IFSKPAL NAIL, 6 OR MORE 04/27/2020 44452-POPQHHN NAIL, 6 OR MORE 10/22/2021 97562-DTWNDRI NAIL, 6 OR MORE 01/24/2022 14403-KBQKJKL NAIL, 6 OR MORE 11/24/2023 74623-Tiiwfsyz Plate 11/24/2023 73492-Vzjfjhdv Plate 01/24/2022 95762-Ogggstfa Plate 10/22/2021 10292-Hkqqshgs Plate 01/20/2020 29049-Mhswfmvh Plate 04/27/2020 11567-Fstltode Plate Each Additional 06/2021 55614-Ycmujzfc Plate Each Additional 04/2021 94115-JAIX SKIN LESIONS, OVER 4 11/24/19 24 04963-EGNV SKIN LESIONS, OVER 4 01/25/20 22 34748-SDII SKIN LESIONS, OVER 4 10/23/19 22 50990-WLNF SKIN LESIONS, OVER 4 04/27/19 21 53715-VEEG SKIN LESIONS, OVER 4 01/20/20 20 Insurance Providers Payer Name Payer Address Payer Phone Subscriber Number Group Number Insured Name Patient Relationship to Insured Coverage Start Date Coverage End Date [employer] [place] [employer]vantage [facility] [address] [place] [address] [id number] Tito Roque Self - patient is the insured Medical (General) History Medical History History ICD Code Arthritis Back,Hip,and Knee pain CAD (Cholesterol) Chicken pox Measles Joint implants/screws Heart valve conditions/replacement Thyroid Surgical History Surgery Date(Month/Year) brain surgery Heart stent -2 Hospitalization History Reason Date(Month/Year) [facility] -GI Problems 03/2020 [facility] -Fall 2019
== END 2024-05-10 14:49 | disposition home or self-care (01) ==
PROVIDERS: PCP Internal Medicine; Visit Provider Internal Medicine Endocrinology, Diabetes & Metabolism
DX: E23.0 Hypopituitarism (principal); D35.2 Benign neoplasm of pituitary gland; E27.49 Other adrenocortical insufficiency; E03.9 Hypothyroidism, unspecified
CPT/HCPCS: 99213

== ENCOUNTER → 2024-05-10 14:17 | Outpatient (BNVA) | payer MEDICARE, SELFPAY | PROVIDERS: PCP Internal Medicine; Visit Provider Internal Medicine Endocrinology, Diabetes & Metabolism | DX: E23.0 Hypopituitarism (principal); D35.2 Benign neoplasm of pituitary gland; E27.49 Other adrenocortical insufficiency; E03.9 Hypothyroidism, unspecified | CPT/HCPCS: 99212 ==

== ENCOUNTER 2024-07-15 14:06 | Outpatient (AMB) | payer MEDICARE, SELFPAY ==
--- NOTE | 2024-07-15 14:10 | A.OFFVIS_ITS ---
Vital Signs 07/15/24 14:11 Height 5 ft 5 in Weight 137 lb BMI 22.8 BP 122/60 Blood Pressure Location Lt brachial Position Sitting Pulse 76 Pulse Source Pulse Oximeter Intake Visit Reasons: 1 year follow up Allergies metoprolol [From Toprol XL] Allergy (Unknown, Verified 05/10/24 14:21) tachycardia Medication List - Last Reconciled 07/15/24 by Iqra Maya, LIBRARY CUSTOMER SERVICE CLERK-C aspirin (Adult Low Dose Aspirin) 81 mg PO DAILY bupropion HCl (smoking deter) 150 mg PO DAILY hydrocortisone 5 mg PO DAILY hydrocortisone 10 mg PO DAILY hydrocortisone sod succ (PF) (Solu-Cortef Act-O-Vial (PF)) 100 mg (2 mL) IM ONCE levothyroxine 125 mcg PO DAILY miscellaneous medical supply 1 ea miscellaneous DAILY testosterone 30 mg/actuation (1.5 mL) 4 pumps transdermal DAILY 30 days HPI HPI 1 year follow up: Details: Tito is a 79-year-old male with past medical history of hyperlipidemia, CAD, remote coronary stent, ischemic cardiomyopathy, declines ICD who presents for follow-up. Last prior visit to our office was 11/21/2022. Today he reports that he has done generally well since his last visit. He still has issues with periodic dizziness. His most recent episode occurred when watching TV and lasted a few days. He denies presyncope, syncope, falls. He says following his last visit he did try valsartan but it made him dizzy and he stopped. He still has generalized weakness and admits to being mostly sedentary. He says his has stage IV cancer and he stays by her side most of the time. He has mild shortness of breath with exertional activity. No chest discomfort at rest or with activity. No palpitations, presyncope, syncope, edema. He reports compliance with all his other medications. 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 Hypogonadism in male Hypogonadism Ischemic cardiomyopathy Thoracic aortic aneurysm Aortic valve regurgitation Hyperlipidemia CAD (coronary artery disease) Surgical History History of gastric surgery History of nephrolithotomy with removal of calculi History of coronary artery stent placement History of cholecystectomy History of appendectomy Family History Father Pulmonary embolism Mother CAD (coronary artery disease) Glaucoma Social History Housing: Other Housing Other:: moblie home Alcohol intake: never Patient Tobacco Use Status: Never used Tobacco e-Cigarette/Vaping Use: Never Used Second Hand Smoke Exposure: No service: No Current occupational status: disabled Cognitive needs: No Hearing needs: No Vision needs: Yes (glasses) Review of Systems Const All systems reviewed & are unremarkable except as noted in HPI and below Reports fatigue and Denies weakness ENT Denies dizziness Card Denies chest pain, Denies chest pain with activity, Denies syncope, Denies rapid heart rate, Denies pedal edema, Denies edema, Denies leg edema, Denies lightheadedness, Denies palpitations, Denies dyspnea, Denies dyspnea on exertion and Denies orthopnea Resp Denies cough, Denies dyspnea and Denies dyspnea on exertion GI Denies hematochezia and Denies change in stool character Musc Denies abnormal gait, Denies muscle cramps, Denies muscle weakness, Denies numbness, Denies radiating pain into limb and Denies tingling Neuro Denies abnormal gait, Denies dizziness, Denies syncope, Denies numbness, Denies tingling and Denies weakness Endo Reports fatigue and Denies palpitations Physical Exam Vital Signs: Last Vital Signs Pulse 76 07/15/24 14:11 BP 122/60 07/15/24 14:11 BMI result Body Mass Index 22.8 Const Other: Frail elderly male General: cooperative and no acute distress Orientation/consciousness: patient oriented x3 Neck Neck: Yes normal visual inspection Chest Chest palpation & inspection: normal inspection of the chest Resp Effort & Inspection: normal respiratory effort Auscultation: clear to auscultation bilaterally, no crackles, no rales, no rhonchi and no wheezes Cardio Jugular venous distension: no JVD Rate: regular rate Rhythm: regular rhythm Heart sounds: S1 normal heart sound present, S2 normal heart sound present, no murmurs and no rubs Skin Other: Very dry and flaky Neuro General: patient oriented x3 Extrem General: Yes normal to inspection Psych Appearance: grossly normal Mental Status: mental status grossly normal Speech and movement: Normal speech and movement present Office Procedures EKG Details: Today, read by me, normal sinus rhythm with sinus arrhythmia, moderate voltage criteria for LVH, can not exclude prior septal infarct, overall unchanged from 09/29/22, rate 71, QTC 441 milliseconds 75304-Aqrsutuixvabasoot, Complete Assessment & Plan Assessment & Plan (1) Ischemic cardiomyopathy: Code(s): I25.5 - Ischemic cardiomyopathy Category: Medical Plan: History of ischemic cardiomyopathy. Last Echocardiogram done 10/27/2022 showing EF 30%, inferior and basal inferior akinetic. A nuclear stress test was done 10/23/2022 showing no ischemia, EF 45%. He has not been on neurohormonal modulation due to reports of dizziness and medication intolerance. He has declined defibrillator. He has no clinical signs of decompensated heart failure. On last visit he was trialed on valsartan but reported increase dizziness and stopped it. Will have him update lab work, CMP and lipids. Will update echocardiogram and plan to call him with results. Pending results, further med management may be considered. Signs and symptoms of heart failure reviewed. Cardiology follow-up in 6 months, sooner if needed. (2) CAD (coronary artery disease): Code(s): I25.10 - Atherosclerotic heart disease of [place] coronary artery without angina pectoris Category: Medical Plan: History of CAD with remote LAD stenting. EKG done today showing normal sinus rhythm with sinus arrhythmia, can not exclude prior septal infarct, moderate voltage criteria for LVH, rate 71, no change from prior EKG. Continue daily aspirin. He is not on statin for unclear reason. Will have him check fasting lipid profile. (3) Thoracic aortic aneurysm: Code(s): I71.2 - Thoracic aortic aneurysm, without rupture Category: Medical Plan: Last echo showed thoracic aorta dilation 4.2 cm. Echo done 10/27/2022 shows mild dilation of the ascending aorta at 4.5 cm. Echo ordered. (4) Stented coronary artery: Comment: Remote LAD Code(s): Z95.5 - Presence of coronary angioplasty implant and graft Category: Surgical Plan: Remote history of LAD stent. No anginal sounding symptoms (5) Aortic valve regurgitation: Code(s): I35.1 - Nonrheumatic aortic (valve) insufficiency Category: Medical Plan: Last echo with mild aortic valve regurgitation, no stenosis (6) Hyperlipidemia: Code(s): E78.5 - Hyperlipidemia, unspecified Category: Medical Plan: [place] LDL goal less than 70. Fasting lipid profile ordered. Plan Time spent on chart review, documentation, interview and assessment Orders: Orders Lipid Panel Today E78.5 - Hyperlipidemia, unspecified Comprehensive Met. Panel Today E78.5 - Hyperlipidemia, unspecified CA echo transthoracic complete Today I25.10 - Atherosclerotic heart disease of [place] coronary artery without angina pectoris, I25.5 - Ischemic cardiomyopathy Medications: Discontinued valsartan Must make cardiology appt Discontinued Reason: Patient no longer taking 20 mg (1/2 x 40 mg) PO BID 30 tabs 7RF Coding Level of Care Code Est Pt Level 4 (47365) Complex EM visit Add On G2211 Diagnoses Ischemic cardiomyopathy I25.5 CAD (coronary artery disease) I25.10 Thoracic aortic aneurysm I71.2 Stented coronary artery Z95.5 Aortic valve regurgitation I35.1 Hyperlipidemia E78.5 CPT Codes EKG - CPT: 35322-Tbtnhxbjcuytjldfn, Complete ([id number]) Time Spent (min) 32
[2024-07-15 14:11] VITALS: BP 122/60; PULSE 76; BMI 22.8
--- OUTSIDE RECORDS SUMMARY | 2024-07-15 14:50 | XMS_ITS ---
Author Organization [facility] luis fernando [place] Address [address] [facility] [place] [address] Care Team Providers Care Glue Maker Bone Name Role Phone Spenser Salamanca MD Primary Care Provider Mario Denton Unavailable [phone] Allergies Allergen (clinical drug ingredient) Drug/Non Drug Allergy documented on EMR Reaction Allergy Type Onset Date Status aspirin Aspirin Unknown Drug Allergy Active REASON FOR VISIT At Risk Footcare Medications Medication SIG (Take, Route, Frequency, Duration) Notes Start Date End Date Status Hydrocortisone 10 MG 1 tablet with food or milk Orally every 12 hrs for 30 day(s) Active buPROPion HCl ER (Smoking Det) 150 MG 1 tablet in the morning Orally Once a day for 30 day(s) Active Levothyroxine Sodium 50 MCG 1 tablet in the morning on an empty stomach Orally Once a day for 30 day(s) Active Rosuvastatin Calcium 20 MG 1 tablet Oral ly Once a day for 30 day(s) Not-Taking Ammonium Lactate 12 % 1 application Externally to feet except for between the toes Twice a day for 30 days Active Baby Aspirin Active Social History Tobacco Use: Social History Observation Description Date Details (start date - stop date) Never Smoker NA - NA Tobacco use other than smoking: Question Answer Notes Are you an other tobacco user? No Tobacco Control (Standard) Question Answer Notes Tobacco use: Nonsmoker Additional Findings: Tobacco non-user Current no nsmoker AUDIT-C (Standard) Question Answer Notes Did you have a drink containing alcohol in the p ast year? No Points 0 Interpretation Negative Vital Signs Height 5 ft 9 in in 06/07/2024 Weight 130 lbs 06/07/2024 BMI 19.2 kg/m2 06/07/2024 Blood pressure systolic 125 mm Hg 06/08/19 25 Blood pressure diastolic 65 mm Hg 025 Procedures Procedure Date Ordered Date Performed Result Body Sit e 19452-HNAIYCO NAIL, 6 OR MORE 06/07/2024 N/A 16181-ANRN SKIN LESIONS, OVER 4 06/07/2024 N/A Encounters Encounter Location Date Provider Diagnosis [facility] [address] [address] 06/07/2024 Mario Valdez Tinea unguium B35.1 ; Pain in right toe(s) M79.674 ; Pain in left toe(s) M79.675 and Atherosclerosis of [place] artery of both lower extremities, with unspecified presence of clinical manifestation I70.203 Assessments Encounter Date Diagnosis (ICD Code) Assessment Notes Treatment Notes Treatment Clinical Notes Section Notes 06/07/2024 Tinea unguium (ICD-10 - B35.1) 06/07/2024 Pain in right toe(s) (ICD-10 - M79.674) 06/07/2024 Pain in left toe(s) (ICD-10 - M79.675) 06/07/2024 Atherosclerosis of [place] artery of both lower extremities, with unspecified presence of clinical manifestation (ICD-10 - I70.203) Plan Of Treatment Pending Test Test Name Order Date 24656-RKPBRQN NAIL, 6 OR MORE 06/07/2024 51667-JWBN SKIN LESIONS, OVER 4 06/08/19 25 Next Appt Details Follow Up: prn, Reason: Provider Name:Jimmy Baez , 09/13/2024 01:00:00 PM, [address] [place], [address], Procedure Notes * Category Sub-Category Detail Notes Debride Nail 6-10 Nail debridement Due to the cl inical pathology outlined in the exam findings, performance of this nail treatment is medically necessary as its management by an unskilled/untrained nonprofessional would put this patients foot and overall health at risk. Therefore, debridement to affected nail(s), as described in exam TA, T1, T2, T3, T4, T5, T6, T7, T8, T9, was performed exclusively by the physician of record to reduce/remove overall nail length, girth, thickness, subungual debris, and necrotic tissue, by manual and/or electrical means through the use of a nail nipper and/or dremel-type computer numerical control grinder, to a more viable healthy nail plate or bed tissue 6-10 nails in total. Silver nitrate was used for any petechial bleeding as necessary. Definitive antifungal treatment options, both pharmaceutical and surgical, have been reviewed and discussed with the patient. The patient solely prefers the use of intermittent/as needed professional debridement services for their nail condition and understands the need for additional periodic treatments to maintain effectiveness in symptomatic relief - 45086 Keratoma Treatment Parring or Cutting o f Benign Hyperkeratotic Lesion(s) (-57) More than 4 Lesions - Due to the at risk nature of the patients medical condition as documented in the exam findings, performance of this keratoderma treatment is medically necessary as its management by an unskilled/untrained nonprofessional would put this patients foot and overall health at risk. Therefore, the benign hyperkeratotic lesions, 6 in total, locations as stated and described in the exam Medial plantar, IPJ, TA, Medial plantar, IPJ, T5, SUB MTH (s), 1, B/L , Heel(s), B/L , were pared, and/or cut utilizing a sterile 15 blade, tissue nippers, and/or power dremel instrumentation by the physician of record - 31784 , Q8 Progress Notes * Tito RAHMANDOB:1945 (79 yo M)Acc No.[id number]:06/07/2024 Progress Note Patient:?Tito RAHMAN Provider:?Mario Valdez D.P.M. :1945???Age:79 Y???Sex:Male Neptali e:06/07/2024 Address:[facility] [address], [facility] Pcp:Spenser Salamanca MD Subjective: * Chief Complaints: * ???At Risk Footcare * HPI: ???At Risk footcare:?Pt States Last PCP Visit:?Date?01/26/2024 * ROS:?General/Constitutional:?Nausea?denies.?Vomiting?denies.?Hunger Thirst?denies.?Loss appetite?denies.?Chills?denies.?Fatigue?denies.?Fever?denies.?Night Sweats?denies.?Unexplained weight loss?denies.?Unexplained [...] Heart stent -2 * Hospitalization/Major Diagno stic Procedure:?[facility] -Fall 2019[facility] -GI Problems 03/2020 * Family History:?Father: dece ased, diagnosed with Family history of arthritis.?Spouse: .? * Social History:?Tobacco Use:?Tobacco use other than smoking?Are you an other tobacco user??No ?Tobacco Control (Standard)?Tobacco use:?Nonsmoker ?Additional Findings: Tobacco non-user?Current nonsmoker ???Drugs/Alcohol:?Drugs?Have you used drugs other than those for medical reasons in the past 12 months??No ???Miscellaneous:?Caffeine: no. ?Children: yes, 2. ?Exercise: yes, yard work. ?Marital status: . ?Occupation: Retired- [employer]. ???Drug/Alcohol:?AUDIT-C (Standard)?Did you have a drink containing alcohol in the past year??No ?Points?0 ?Interpretation?Negative * Medications:?TakingBaby Aspi rin buPROPion HCl ER (Smoking Det) 150 MG Tablet Extended Release 12 Hour 1 tablet in the morning Orally Once a day Hydrocortisone 10 MG Tablet 1 tablet with food or milk Orally every 12 hrs Levothyroxine Sodium 50 MCG Tablet 1 tablet in the morning on an empty stomach Orally Once a day Ammonium Lactate 12 % Cream 1 application Externally to feet except for between the toes Twice a day Taking Baby Aspirin Taking buPROPion HCl ER (Smoking Det) 150 MG Tablet Extended Release 12 Hour 1 tablet in the morning Orally Once a day Taking Hydrocortisone 10 MG Tablet 1 tablet with food or milk Orally every 12 hrs Taking Levothyroxine Sodium 50 MCG Tablet 1 tablet in the morning on an empty stomach Orally Once a day Taking Ammonium Lactate 12 % Cream 1 application Externally to feet except for between the toes Twice a day Not-Taking/PRNRosuvastatin Calcium 20 MG Tablet 1 tablet Orally Once a day Medication List reviewed and reconciled with the patientNot-Taking/PRN Rosuvastatin Calcium 20 MG Tablet 1 tablet Orally Once a day Medication List reviewed and reconciled with the patient * Allergies:?Aspirinyes[Allerg ies Verified] Objective: * Vitals:?Ht: 5 ft 9 in, Wt: 1 30, BMI: 19.2, Shoe size: 9, BP: 125/65 mm Hg, Wt- k.97 kg. * Examination: ???Vascular: ?DP PULSES (B):? 0/4, B/L.?PT PULSES (B):? 0/4, B/L.?CAPILLARY FILL TIME:? delayed, all digits, B/L.?TROPHIC CONDITION-TEXTURE/ELASTICITY/TURGOR/HAIR GROWTH (B):? decreased, B/L.?TEMPERTURE GRADIENT (C):? decreased, cool to cool, proximal to distal, B/L.?PIGMENTATION:?rubrous, B/L.?EDEMA (C):?1/4 , non-pitting , without aching pain , Leg(s) , Ankle(s) , B/L.?CLAUDICATION (C):?denies, B/L.?REST PAIN:?denies, B/L.?Nails: ?NAILS are:?Elongated, overgrown, dystrophic, lytic, greater than 3mm thick, discolored and friable with crumbly malodorous subungual debris, with pain on palpation, TA, T1, T2, T3, T4, T5, T6, T7, T8, T9.?Dermatologic: ?SKIN FINDINGS:?Skin exam reveals Keratotic lesion(s) located at, Medial plantar, IPJ, TA, Medial plantar, IPJ, T5, SUB MTH (s), 1, B/L , Heel(s), B/L??.?Orthopedic: ?MUSCLE STRENGTH:?5/5 all groups in a symmetrical [...] time.? Assessment: * Assessment: 1.?Tinea unguium - B35.1 (Pr imary)???2.?Pain in right toe(s) - M79.674???3.?Pain in left toe(s) - M79.675???4.?Atherosclerosis of [place] artery of both lower extremities, with unspecified presence of clinical manifestation - I70.203??? Plan: * Treatment: 2.?Atherosclerosis of [place] artery of both lower extremities, with unspecified presence of clinical manifestation?Procedure: 53184-TIWP SKIN LESIONS, OVER 4 * Procedures:?Debride Nail 6-10:?Nail debridement?Due to the clinical pathology outlined in the exam findings, performance of this nail treatment is medically necessary as its management by an unskilled/untrained nonprofessional would put this patients foot and overall health at risk. Therefore, debridement to affected nail(s), as described in exam TA, T1, T2, T3, T4, T5, T6, T7, T8, T9, was performed exclusively by the physician of record to reduce/remove overall nail length, girth, thickness, subungual debris, and necrotic tissue, by manual and/or electrical means through the use of a nail nipper and/or dremel-type computer numerical control grinder, to a more viable healthy nail plate or bed tissue 6- 10 nails in total. Silver nitrate was used for any petechial bleeding as necessary. Definitive antifungal treatment options, both pharmaceutical and surgical, have been reviewed and discussed with the patient. The patient solely prefers the use of intermittent/as needed professional debridement services for their nail condition and understands the need for additional periodic treatments to maintain effectiveness in symptomatic relief - 31774.?Keratoma Treatment:?Parring or Cutting of Benign Hyperkeratotic Lesion(s)?(-57) More than 4 Lesions - Due to the at risk nature of the patients medical condition as documented in the exam findings, performance of this keratoderma treatment is medically necessary as its management by an unskilled/untrained nonprofessional would put this patients foot and overall health at risk. Therefore, the benign hyperkeratotic lesions, 6 in total, locations as stated and described in the exam Medial plantar, IPJ, TA, Medial plantar, IPJ, T5, SUB MTH (s), 1, B/L , Heel(s), B/L , were pared, and/or cut utilizing a sterile 15 blade, tissue nippers, and/or power dremel instrumentation by the physician of record - 21573 , Q8.? * Procedure Codes:?32353 DEBRI DE NAIL, 6 OR MORE, Modifiers: XS 32176 TRIM SKIN LESIONS, OVER 4, Modifiers: XS , Q8 * Follow Up:?prn * Images: * Sign off status: Completed true * Provider:?Mario Valdez D.P.M. Date:?05/21 Generated for Freddy tejeda/Nga/[place] on:?07/15/2024 02:50 PM EDT History and Physical Notes * HPI (History of Present Illness) Category Sub-Category Detail Notes Category Not es At Risk footcare Pt States Last PCP Visit: Date: 4 Examination Category Sub-Category Detail Notes Category Not es Neurological SENSORY: Neurological exa m reveals intact sensorium, pain sensation normal, vibration sensation intact, pinprick sensation is normal in the lower extremities, Pt denies, anesthesia, burning, paresthesia, tingling, B/L Dermatologic SKIN FINDINGS: Skin exam reveal s Keratotic lesion(s) located at, Medial plantar, IPJ, TA, Medial plantar, IPJ, T5, SUB MTH (s), 1, B/L , Heel(s), B/L Orthopedic MUSCLE STRENGTH: 5/5 all groups [...] malodorous subungual debris, with pain on palpation, TA, T1, T2, T3, T4, T5, T6, T7, T8, T9
--- OUTSIDE RECORDS SUMMARY | 2024-07-15 14:50 | XMS_ITS ---
Author Organization [facility] Address [address] [place] [address] Care Team Providers Care Pressure Vessel Inspector Name Role Phone Cheikh VELASCO, Spenser Primary Care Provider Unavaila Mario Carlos Unavailable [phone] Jimmy Baez Unavailable [phone] Encounters Encounter Location Date Provider Diagnosis [address] [address] 02/26/2024 Jimmy Baez Plan Of Treatment Next Appt Details Provider Name:Jimmy Baez , 09/13/2024 01:00:00 PM, [address] [place] [address], [address], Progress Notes * Tito RAHMANDOB:1945 (79 yo M)Acc No.[id number]:02/26/2024 Progress Note Patient:?JOSIAHTito Provider:?Jimmy Baez DPM :1945???Age:79 Y???Sex:Male Neptali e:02/26/2024 Address:[facility] [address], [facility] Pcp:Spenser Salamanca MD Subjective: * Chief Complaints: * ??? * Medical History:? Objective: * Vitals:? Assessment: Plan: * Treatment: * Images: * The named appointment provid er may or may not be the originator of this progress note, and it is not deemed complete until electronically signed by the appointment provider. Sign off status: Pending * Provider:Leo Baez DPM Date:?2023 Generated for Freddy tejeda/Nga/Quincy on:?07/15/2024 02:50 PM EDT
--- OUTSIDE RECORDS SUMMARY | 2024-07-15 14:50 | XMS_ITS | Encounter Summary ---
Author Organization [facility] Address [address] [place] [address] Phone Care Team Providers Care Office Employee Name Role Phone Unknown, Unknown Primary Care Provider Spenser Vincent MD Primary Care Provider [phone] Encounter Details Date Type Department Care Team (Latest Contact Info) Description 04/27/2018 Transcribe Orders [facility] Specimen Processing [address] [place] [address] Abel De Anda MD [address] [facility] [address], [address] [place] [address] [email or web address] Hyperlipidemia, unspecified hyperlipidemia type (Primary Dx); Gastroesophageal reflux disease, esophagitis presence not specified; Chronic kidney disease, unspecified CKD stage; Coronary artery disease, angina presence unspecified, unspecified vessel or lesion type, unspecified whether [place] or transplanted heart Social History Tobacco Use [...] EST) SODIUM 142 133 - 146 mmol/L [facility] CHLORIDE 105 96 - 108 mmol/L [facility] POTASSIUM 3.7 3.3 - 5.1 mmol/L [facility] CO2 24 21 - 35 mmol/L [facility] BUN 15 6 - 19 mg/dL [facility] CREATININE 1.10 0.5 - 1.5 mg/dL [facility] GLUCOSE 79 70 - 99 mg/dL [facility] CALCIUM 8.5 8.4 - 10.3 mg/dL [facility] EGFR 67 >59 mL/min/1.7 3m2 [facility] Comment:If patient is black, multiply result by 1.159. Estimated glomerular filtration rate calculated using the CKD-EPI equation. ANION GAP 17 10 - 20 mmol/L [facility] Blood 04/27/2018 5:20 AM EST 04/27/2018 8:18 AM EST Abel De Anda MD LAB BLOOD ORDERABLES Performing Organization Address City/[facility]/ZIP Co de Phone Number [address] [address] * (ABNORMAL) CBC (04/27/2018 5:20 AM EST) WBC 7.05 3.40 - 11.20 K/uL [facility] RBC 3.94(L) 4.50 - 5.50 M/uL [facility] HGB 11.6(L) 13.0 - 17.0 g/dL [facility] HCT 34.9(L) 40.0 - 51.0 % [facility] PLT 348 130 - 400 K/uL [facility] MCV 88.6 79.0 - 98.0 fL [facility] MCH 29.4 27.0 - 34.8 pg [facility] MCHC 33.2 31.5 - 36.0 g/dL [facility] RDW 14.7(H) 10.8 - 14.6 % [facility] MPV 11.0 9.4 - 12.4 fl [facility] NRBC 0.00 0.00 /100 WBCs [facility] ABSOLUTE NRBC 0.00 0.00 K/uL [facility] Blood 04/27/2018 5:20 AM EST 04/27/2018 8:18 AM EST Abel De Anda MD LAB BLOOD ORDERABLES [address] [address] documented in this encounter Visit Diagnoses Diagnosis Hyperlipidemia, unspecified hyperlipidemia type- Primary Gastroesophageal reflux disease, esophagitis presence not specified Chronic kidney disease, unspecified CKD stage Coronary artery disease, angina presence unspecified, unspecified vessel or lesion type, unspecified whether [place] or transplanted heart documented in this encounter Care Teams Office Employee Relationship Specialty Start Date End Date Unknown, Unknown, MD PCP - General 04/19/18 04/07/19 Spenser Salamanca MD [address] [place] [address] Dr ROSE [address] [place] [address] PCP - General Internal Medicine 04/08/19 documented as of this encounter Additional Source Comments The information contained in this document represents components of the legal health record. It is not the complete legal health record.[facility]
--- OUTSIDE RECORDS SUMMARY | 2024-07-15 14:50 | XMS_ITS | Clinical Summary ---
Author Organization [facility] Address [address] [place] [address] Phone Care Team Providers Care Associate Professor Of Kinesiology Name Role Phone Spenser Salamanca MD Primary Care Provider [phone] Social History Tobacco Use Types Packs/Day Years [...] DEPRESSION SCREENING 1959 SMOKING Hx and SMOKELESS TOB ACCO SCREENING 01/13/1960 HEPATITIS C SCREENING 1965 PNEUMOCOCCAL VACCINES (50+ y ears) (1 of 1 - PCV) 1997 ZOSTER VACCINES (1 of 2) 1997 RSV VACCINE (1 - 1-dose 75+ series) 2022 COVID-19 VACCINE (2 - 2023-2 5 season) 2023 07/26/2020 HEPATITIS A VACCINES Aged Out No long er eligible based on patient's age to complete this topic HIB VACCINES Aged Out No longer eligi ble based on patient's age to complete this topic MENINGOCOCCAL VACCINES (ACWY) Aged Out No longer eligible based on patient's age to complete this topic Medical Devices Not on file Care Teams Associate Professor Of Kinesiology Relationship Specialty Start Date End Date Spenser Salamanca MD [address] [place] [address] Dr ROSE Cuca ALEJO MARCOS [address] PCP - General Internal Medicine 04/08/19 Additional Source Comments The information contained in this document represents components of the legal health record. It is not the complete legal health record.[facility]
--- OUTSIDE RECORDS SUMMARY | 2024-07-15 14:50 | XMS_ITS ---
Author Organization [facility] Address [address] [place] [address] Care Team Providers Care Resolution Agent Name Role Phone Spenser Salamanca MD Primary Care Provider UnavailMario Batista Unavailable [phone] Jimmy Baez Unavailable [phone] REASON FOR VISIT cx 02/25 Encounters Encounter Location Date Provider Diagnosis [facility] [address] [place] [address] 02/25/2024 Jimmy aBez Plan Of Treatment Next Appt Details Provider Name:Jimmy Baez , 09/13/2024 01:00:00 PM, [address] [place], [address], Progress Notes * Tito RAHMANDOB:1945 (79 yo M)Acc No.[id number]:02/25/2024 Patient:?Tito RAHMAN :1945???Age:79 Y???Sex:Male Address:[facility] [address], [place], [address] * true * Date:? Generated for Printi ng/Fakareng/eTransmitting on:?07/15/2024 02:49 PM EDT
--- OUTSIDE RECORDS SUMMARY | 2024-07-15 14:51 | XMS_ITS | Patient Health Record ---
Author Organization [facility] Address [address] [place] [address] Care Team Providers Care Public Safety Police Name Role Phone Spenser Salamanca MD Primary Care Provider Unavaila Mario Carlos Unavailable [phone] Jimmy Baez Unavailable [phone] Allergies Allergen (clinical drug ingredient) Drug/Non Drug Allergy documented on EMR Reaction Allergy Type Onset Date Status aspirin Aspirin Unknown Drug Allergy Active Reason For Referral No Information Medications Medication SIG (Take, Route, Frequency, Duration) Notes Start Date End Date Status Baby Aspirin Active Hydrocortisone 10 MG 1 tablet with [...] Twice a day for 30 days Active Social History Tobacco Use: Social History [...] ast year? No Points 0 Interpretation Negative Problems Problem Type SNOMED Code ICD Code Onset Dates Problem Status W/U Status Risk Notes Problem Atherosclerosis of [place] arteries of the extremities ([id number]) Atherosclerosis of [place] artery of both lower extremities, with unspecified presence of clinical manifestation (I70.203) Active confirmed Vital Signs Blood pressure diastolic 65 mm Hg 06/07/2024 Height 5 ft 9 in in 06/07/2024 Blood pressure systolic 125 mm Hg 06/07/2024 Weight 130 lbs 06/07/2024 BMI 19.2 kg/m2 06/07/2024 Procedures Procedure Date Ordered Date Performed Result Body Sit e 90330-JGCNXJR NAIL, 6 OR MORE 11/24/2023 N/A 57000-Mnsvfapc Plate 11/24/2023 N/A 06568-OYNB SKIN LESIONS, OVER 4 11/24/2023 N/A 65139-AOTZNQO NAIL, 6 OR MORE 06/07/2024 N/A 79233-CHUD SKIN LESIONS, OVER 4 06/07/2024 N/A Encounters Encounter Location Date Provider Diagnosis [address] [address] 11/24/2023 Jimmy Baez Atherosclerosis of [place] artery of both lower extremities, with unspecified presence of clinical manifestation I70.203 ; Tinea unguium B35.1 ; Pain in right toe(s) M79.674 ; Pain in left toe(s) M79.675 ; Ingrown nail L60.0 and Xerosis of skin L85.[address] [address] 06/07/2024 Mario Valdez Tinea unguium B35.1 ; Pain in right toe(s) M79.674 ; Pain in left toe(s) M79.675 and Atherosclerosis of [place] artery of both lower extremities, with unspecified presence of clinical manifestation I70.[address] [address] 02/25/2024 Jimmy Baez Assessments Encounter Date Diagnosis (ICD Code) Assessment Notes Treatment Notes Treatment Clinical Notes Section Notes 11/24/2023 Tinea unguium (ICD-10 - B35.1) 11/24/2023 Atherosclerosis of [place] artery of both lower extremities, with unspecified presence of clinical manifestation (ICD-10 - I70.203) 06/07/2024 Tinea unguium (ICD-10 - B35.1) 06/07/2024 Pain in right toe(s) (ICD-10 - M79.674) 06/07/2024 Pain in left toe(s) (ICD-10 - M79.675) 11/24/2023 Pain in right toe(s) (ICD-10 - M79.674) 11/24/2023 Pain in left toe(s) (ICD-10 - M79.675) 06/07/2024 Atherosclerosis of [place] artery of both lower extremities, with unspecified presence of clinical manifestation (ICD-10 - I70.203) 11/24/2023 Ingrown nail (ICD-10 - L60.0) 11/24/2023 Xerosis of skin (ICD-10 - L85.3) Plan Of Treatment Pending Test Test Name Order Date 43107-UJMEJLC NAIL, 6 OR MORE 01/20/2020 72987-QNDETSM NAIL, 6 OR MORE 04/27/2020 63952-KFZXBUW NAIL, 6 OR MORE 10/22/2021 06376-BDMQGDU NAIL, 6 OR MORE 01/24/2022 18177-DVUWEIU NAIL, 6 OR MORE 11/24/2023 09009-KEPLGEE NAIL, 6 OR MORE 06/07/2024 40810-Atdfrxxy Plate 11/24/2023 37179-Jqcjpjgn Plate 01/24/2022 67062-Bkzkpkwv Plate 10/22/2021 99543-Eaqvzdwt Plate 01/20/2020 54988-Tzuosiqt Plate 04/27/2020 75229-Slmxiobh Plate Each Additional 06/2021 09460-Jwdxcbdd Plate Each Additional 04/2021 04860-CKEP SKIN LESIONS, OVER 4 11/24/19 24 58808-SQPU SKIN LESIONS, OVER 4 01/25/20 22 16536-RLKB SKIN LESIONS, OVER 4 10/23/19 22 47095-QICN SKIN LESIONS, OVER 4 04/27/19 21 21207-GRCD SKIN LESIONS, OVER 4 01/20/20 20 96870-VZNE SKIN LESIONS, OVER 4 06/08/19 25 Next Appt Details Provider Name:Jimmy Baez , 09/13/2024 01:00:00 PM, [address] [place], [address], Insurance Providers Payer Name Payer Address Payer Phone Subscriber Number Group Number Insured Name Patient Relationship to Insured Coverage Start Date Coverage End Date [employer]age [address] [place] [address] [id number] Tito Roque Self - patient is the insured Medical (General) History Medical History History ICD Code Arthritis Back,Hip,and Knee pain CAD (Cholesterol) Chicken pox Measles Joint implants/screws Heart valve conditions/replacement Thyroid Surgical History Surgery Date(Month/Year) brain surgery Heart stent -2 Hospitalization History Reason Date(Month/Year) [facility] -GI Problems 03/2020 [facility] -Fall 2019
--- OUTSIDE RECORDS SUMMARY | 2024-07-15 14:51 | XMS_ITS ---
Author Organization [facility] Care Team Providers Care Associate Attorney Name Role Phone Abel De Anda Unavailable Unavailable Emily Mccallum Unavailable Unavailable Allergies and adverse reactions Code CodeSystem Substance Reaction Severity StartDate Concern Status Toprol XL Moderate 04/17/2018 active Care Team Name Role Address Phone Organization Dates Abel De Anda Attending Physician [address] [place] [address] [address], [place], [address], [place] (Office): : [facility] 04/17/2018 - 04/28/2018 Emily Mccallum Attending Physician [address] [facility] [address], [place], [address], [place] (Office): : [facility] 04/17/2018 - 04/28/2018 Immunizations Immunization Status Vaccine Details Vaccine Code CodeSystem Neptali e Notes PCV (Prevnar) 13 completed pneumococcal conjugate vaccine, 13 valent 133 CVX created date: 05/03/2018 administered date: 12/21/2017 Influenza (vial) completed Influenza, spli t virus, trivalent, injectable, contains preservative 141 CVX created date: 05/03/2018 administered date: 12/21/2017 Mental Status Section Date Assessment Total Score Description 04/28/2018 BIMS 15 cognitively int act CAM 0 No delirium ind icated PHQ-9 05 mild depression Problems Problem # Description Date of onset Resolved Date Code CodeSystem Concern Status 1 ACUTE PAIN DUE TO TRAUMA 04/17/[address] active 2 COGNITIVE COMMUNICATION DEFICIT 04/17/[address] active 3 DIFFICULTY IN WALKING, NOT ELSEWHERE CLASSIFIED 04/17/[address] active 4 FALL ON AND FROM LADDER, SUBSEQUENT ENCOUNTER 04/17/[address] active 5 GASTRO-ESOPHAGEAL REFLUX DISEASE WITHOUT ESOPHAGITIS 04/17/[address] active 6 HYPERLIPIDEMIA, UNSPECIFIED 04/17/[address] active 7 MAJOR DEPRESSIVE DISORDER, SINGLE EPISODE, UNSPECIFIED 04/17/[address] active 8 MENIERE'S DISEASE, UNSPECIFIED EAR 04/17/[address] active 9 MULTIPLE FRACTURES OF RIBS, UNSPECIFIED SIDE, SUBSEQUENT ENCOUNTER FOR FRACTURE WITH ROUTINE HEALING 04/17/[address] active 10 MUSCLE WEAKNESS (GENERALIZED) 04/17/[address] active 11 OTHER SPECIFIED HYPOTHYROIDISM 04/17/[address] active Reason for Referral No Reasons for Referral Entered Social History Social History Observation Description Start Date End Date Code Code System Current Smoking Status Tobacco smoking consumption unknown 641943549 SNOMED CT Sex Assigned At Male 1945 23161-5 [facility] Vital Signs Code Code System Vitals Name Values and Units Timing Information 60529-4 [facility] Pain Level Value=2.0 04/28/2018 9279-1 [facility] Respiratory Rate Value=18.0 Units=/m in 04/28/2018 8462-4 [facility] Blood Pressure-Diastolic Value=65 Un its=mmHg 04/28/2018 8480-6 [facility] Blood Pressure-Systolic Bpgek=477 Un its=mmHg 04/28/2018 8310-5 [facility] Body Temperature Value=97.3 Units=?? F 04/28/2018 8867-4 [facility] Heart rate Value=49.0 Units=/min 08/2018 40487-1 [facility] O2 % dC Oximetry Value=95.0 Units= % 04/28/2018 20925-4 LOINC Weight Qxaby=243.0 Units=Lbs 8302-2 [facility] Height Value=68.0 Units=Inches 04/17/2018
== END 2024-07-15 14:58 | disposition home or self-care (01) ==
PROVIDERS: Visit Provider Nurse Practitioner Family
DX: I25.5 Ischemic cardiomyopathy (principal); I25.10 Atherosclerotic heart disease of native coronary artery without angina pectoris; I71.20 Thoracic aortic aneurysm, without rupture, unspecified; Z95.5 Presence of coronary angioplasty implant and graft; I35.1 Nonrheumatic aortic (valve) insufficiency; E78.5 Hyperlipidemia, unspecified
CPT/HCPCS: 93010; 99214; G2211

== ENCOUNTER → 2024-07-15 14:06 | Outpatient (BNVA) | payer MEDICARE, SELFPAY | PROVIDERS: Visit Provider Nurse Practitioner Family | DX: I25.10 Atherosclerotic heart disease of native coronary artery without angina pectoris (principal); I25.5 Ischemic cardiomyopathy; I71.20 Thoracic aortic aneurysm, without rupture, unspecified; I35.1 Nonrheumatic aortic (valve) insufficiency; E78.5 Hyperlipidemia, unspecified; Z95.5 Presence of coronary angioplasty implant and graft | CPT/HCPCS: 93005; 99212 ==

== ENCOUNTER → 2024-07-18 12:46 | Outpatient (BNV) | payer MEDICARE, SELFPAY | PROVIDERS: Visit Provider Radiology Diagnostic Radiology | DX: R90.82 White matter disease, unspecified (principal) | CPT/HCPCS: 70553 ==

== ENCOUNTER 2024-07-18 13:08 | Outpatient (REF) | payer MEDICARE, SELFPAY ==
--- NOTE | ~2024-07-18 | MR_ITS ---
EXAMINATION: MR BRAIN PITUITARY GLAND PROTOCOL WITHOUT AND WITH CONTRAST CLINICAL INFORMATION: Benign neoplasm of pituitary gland. COMPARISON: December 30, 2018. Outside images dated February 27, 2022. 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 FINDINGS: There is a 19 x 20 x 9 mm heterogeneously enhancing soft tissue signal abnormality within the sella turcica with at least 2 components anteriorly. There is a 15 pituitary stalk measuring less than 1 mm in maximal thickness. The flow-void signal within the cavernous supraclinoid segments of the ICAs is a normal. The optic chiasm is discontinued. No restricted diffusion within the brain parenchyma. No acute intracranial hemorrhage, mass effect, midline shift, hydrocephalus or herniation. Bilateral multifocal patchy and confluent deep periventricular white matter and subcortical white matter hyperintense T2 FLAIR signal involving centrum semiovale and santana radiata. Old lacunar infarcts, right cerebellum, basal ganglia and extracapsular. 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 Abnormal optic chiasm. Electronically signed by: Ajay Hudson MD 07/20/2024 02:45 PM EDT
[2024-07-18] MEDS: gadobutroL 2 ML VIAL IVPUSH ×2 (15:10→15:12)
--- OUTSIDE RECORDS SUMMARY | 2024-07-18 15:37 | XMS_ITS ---
Author Organization [facility] Address [address] [place] [address] Care Team Providers Care Furnace Reliner Name Role Phone Cheikh VELASCO, Spenser Primary Care Provider Unavaila Mario Carlos Unavailable [phone] Jimmy Baez Unavailable [phone] Encounters Encounter Location Date Provider Diagnosis [address] [address] 02/26/2024 Jimmy Baez Plan Of Treatment Next Appt Details Provider Name:Jimmy Baez , 09/13/2024 01:00:00 PM, [address] [place] [address], [address], Progress Notes * Tito RAHMANDOB:1945 (79 yo M)Acc No.[id number]:02/26/2024 Progress Note Patient:?JOSIAHTito Provider:?Jimmy Baez DPM :1945???Age:79 Y???Sex:Male Neptali e:02/26/2024 Address:[facility] [address], [facility] Pcp:Spenser Salamanca MD Subjective: * Chief Complaints: [...] Baez DPM Date:?2023 Generated for Freddy tejeda/Nga/[place] on:?07/18/2024 03:37 PM EDT
--- OUTSIDE RECORDS SUMMARY | 2024-07-18 15:37 | XMS_ITS | Encounter Summary ---
Author Organization [facility] Address [address] [place] [address] Phone Care Team Providers Care Tactical Intelligence Officer Name Role Phone Unknown, Unknown Primary Care Provider Spenser Vincent MD Primary Care Provider [phone] Encounter Details Date Type Department Care Team (Latest Contact Info) Description 04/27/2018 Transcribe Orders [facility] Specimen Processing [address] [place] [address] Abel De Anda MD [address] [facility] [address], [address] [place] [address] [email or web address] Hyperlipidemia, unspecified hyperlipidemia type (Primary Dx); Gastroesophageal reflux disease, esophagitis presence not specified; Chronic kidney disease, unspecified CKD stage; Coronary artery disease, angina presence unspecified, unspecified vessel or lesion type, unspecified whether beaver or transplanted heart Social History Tobacco Use [...] EST) SODIUM 142 133 - 146 mmol/L [facility] CHLORIDE 105 96 - 108 mmol/L [facility] POTASSIUM 3.7 3.3 - 5.1 mmol/L [facility] CO2 24 21 - 35 mmol/L [facility] BUN 15 6 - 19 mg/dL [facility] CREATININE 1.10 0.5 - 1.5 mg/dL [facility] GLUCOSE 79 70 - 99 mg/dL [facility] CALCIUM 8.5 8.4 - 10.3 mg/dL [facility] EGFR 67 >59 mL/min/1.7 3m2 [facility] Comment:If patient is black, multiply result by 1.159. Estimated glomerular filtration rate calculated using the CKD-EPI equation. ANION GAP 17 10 - 20 mmol/L [facility] Blood 04/27/2018 5:20 AM EST 04/27/2018 8:18 AM EST Abel De Anda MD LAB BLOOD ORDERABLES Performing Organization Address City/[facility]/ZIP Co de Phone Number [address] [address] * (ABNORMAL) CBC (04/27/2018 5:20 AM EST) WBC 7.05 3.40 - 11.20 K/uL [facility] RBC 3.94(L) 4.50 - 5.50 M/uL [facility] HGB 11.6(L) 13.0 - 17.0 g/dL [facility] HCT 34.9(L) 40.0 - 51.0 % [facility] PLT 348 130 - 400 K/uL [facility] MCV 88.6 79.0 - 98.0 fL [facility] MCH 29.4 27.0 - 34.8 pg [facility] MCHC 33.2 31.5 - 36.0 g/dL [facility] RDW 14.7(H) 10.8 - 14.6 % [facility] MPV 11.0 9.4 - 12.4 fl [facility] NRBC 0.00 0.00 /100 WBCs [facility] ABSOLUTE NRBC 0.00 0.00 K/uL [facility] Blood 04/27/2018 5:20 AM EST 04/27/2018 8:18 AM EST Abel De Anda MD LAB BLOOD ORDERABLES [address] [address] documented in this encounter Visit Diagnoses Diagnosis Hyperlipidemia, unspecified hyperlipidemia type- Primary Gastroesophageal reflux disease, esophagitis presence not specified Chronic kidney disease, unspecified CKD stage Coronary artery disease, angina presence unspecified, unspecified vessel or lesion type, unspecified whether beaver or transplanted heart documented in this encounter Care Teams Tactical Intelligence Officer Relationship Specialty Start Date End Date Unknown, Unknown, MD PCP - General 04/19/18 04/07/19 Spenser Salamanca MD [address] [place] [address] Dr ROSE [address] [place] [address] PCP - General Internal Medicine 04/08/19 documented as of this encounter Additional Source Comments The information contained in this document represents components of the legal health record. It is not the complete legal health record.[facility]
--- OUTSIDE RECORDS SUMMARY | 2024-07-18 15:37 | XMS_ITS ---
Author Organization [facility] Address [address] [place] [address] Care Team Providers Care Roof Designer Name Role Phone Spenser Salamanca MD Primary Care Provider UnavailMario Batista Unavailable [phone] Jimmy Baez Unavailable [phone] REASON FOR VISIT cx 02/25 Encounters Encounter Location Date Provider Diagnosis [facility] [address] [place] [address] 02/25/2024 Jimmy Baez Plan Of Treatment Next Appt Details Provider Name:Jimmy Baez , 09/13/2024 01:00:00 PM, [address] [place], [address], Progress Notes * Tito RAHMANDOB:1945 (79 yo M)Acc No.[id number]:02/25/2024 Patient:?Tito RAHMAN :1945???Age:79 Y???Sex:Male Address:[facility] [address], [place], [address] * true * Date:? Generated for Printi ng/Fakareng/eTransmitting on:?07/18/2024 03:37 PM EDT
--- OUTSIDE RECORDS SUMMARY | 2024-07-18 15:37 | XMS_ITS ---
Author Organization [facility] Address [address] [facility] [place] [address] Care Team Providers Care Steam Conditioner Operator Name Role Phone Spenser Salamanca MD Primary Care Provider Mario Denton Unavailable [phone] Allergies Allergen (clinical drug ingredient) Drug/Non Drug [...] Ordered Date Performed Result Body Sit e 37306-FJETEXU NAIL, 6 OR MORE 06/07/2024 N/A 93996-DFTH SKIN LESIONS, OVER 4 06/07/2024 N/A Encounters Encounter Location Date Provider Diagnosis [facility] [address] [address] 06/07/2024 Mario Valdez Tinea unguium B35.1 ; Pain in right toe(s) M79.674 ; Pain in left toe(s) M79.675 and Atherosclerosis of [place] artery of both lower extremities, with unspecified presence of clinical manifestation I70.203 Assessments Encounter Date Diagnosis (ICD Code) Assessment Notes Treatment Notes Treatment Clinical Notes Section Notes 06/07/2024 Tinea unguium (ICD-10 - B35.1) 06/07/2024 Pain in right toe(s) (ICD-10 - M79.674) 06/07/2024 Pain in left toe(s) (ICD-10 - M79.675) 06/07/2024 Atherosclerosis of [place] artery of both lower extremities, with unspecified presence of clinical manifestation (ICD-10 - I70.203) Plan Of Treatment Pending Test Test Name Order Date 03039-EBKIVGQ NAIL, 6 OR MORE 06/07/2024 80259-VAJE SKIN LESIONS, OVER 4 06/08/19 25 Next Appt Details Follow Up: prn, Reason: Provider Name:Jimmy Baez , 09/13/2024 01:00:00 PM, [address] [place], [address], Procedure Notes * Category Sub-Category Detail Notes [...] use of a nail nipper and/or dremel-type scissors grinder, to a more viable healthy nail [...] to maintain effectiveness in symptomatic relief - 10064 Keratoma Treatment Parring or Cutting o f [...] instrumentation by the physician of record - 96530 , Q8 Progress Notes * Tito RAHMANDOB:1945 (79 yo M)Acc No.[id number]:06/07/2024 Progress Note Patient:?Tito RAHMAN Provider:?Mario Valdez D.P.M. :1945???Age:79 Y???Sex:Male Neptali e:06/07/2024 Address:[facility] [address], [facility] Pcp:Spenser Salamanca MD Subjective: * Chief Complaints: [...] Heart stent -2 * Hospitalization/Major Diagno stic Procedure:?[facility] -Fall 2019[facility] -GI Problems [...] M79.674???3.?Pain in left toe(s) - M79.675???4.?Atherosclerosis of [place] artery of both lower extremities, with unspecified presence of clinical manifestation - I70.203??? Plan: * Treatment: 2.?Atherosclerosis of [place] artery of both lower extremities, with unspecified presence of clinical manifestation?Procedure: 61516-WYBX SKIN LESIONS, OVER 4 * Procedures:?Debride Nail [...] use of a nail nipper and/or dremel-type scissors grinder, to a more viable healthy nail [...] to maintain effectiveness in symptomatic relief - 83291.?Keratoma Treatment:?Parring or Cutting of Benign Hyperkeratotic Lesion(s)?(-57) [...] instrumentation by the physician of record - 25078 , Q8.? * Procedure Codes:?78503 DEBRI DE NAIL, 6 OR MORE, Modifiers: XS 01662 TRIM SKIN LESIONS, OVER 4, Modifiers: XS , Q8 * Follow Up:?prn * Images: * Sign off status: Completed true * Provider:?Mario Valdez D.P.M. Date:?05/21 Generated for Freddy tejeda/Nga/[place] on:?07/18/2024 03:37 PM EDT History and Physical Notes * [...]
--- OUTSIDE RECORDS SUMMARY | 2024-07-18 15:37 | XMS_ITS | Clinical Summary ---
Author Organization [facility] Address [address] [place] [address] Phone Care Team Providers Care Buildings Painter Name Role Phone Spenser Salamanca MD Primary Care Provider [phone] Social History Tobacco Use Types Packs/Day Years [...] Medical Devices Not on file Care Teams Buildings Painter Relationship Specialty Start Date End Date Spenser Salamanca MD [address] [place] [address] Dr ROSE Cuca ALEJO MARCOS [address] PCP - General Internal Medicine 04/08/19 Additional Source Comments The information contained in this document represents components of the legal health record. It is not the complete legal health record.[facility]
--- OUTSIDE RECORDS SUMMARY | 2024-07-18 15:38 | XMS_ITS ---
Author Organization [facility] Care Team Providers Care Stogy Maker Name Role Phone Abel De Anda Unavailable Unavailable Emily Mccallum Unavailable Unavailable Allergies and adverse reactions Code CodeSystem Substance Reaction Severity StartDate Concern Status Toprol XL Moderate 04/17/2018 active Care Team Name Role Address Phone Organization Dates Abel De Anda Attending Physician [address] [place] [address] [address], [place], [address], [place] (Office): : [facility] 04/17/2018 - 04/28/2018 Emily Mccallum Attending Physician [address] [facility] [address], [place], [address], [place] (Office): : [facility] 04/17/2018 - 04/28/2018 Immunizations Immunization Status Vaccine [...] 1 ACUTE PAIN DUE TO TRAUMA 04/17/[address] active 2 COGNITIVE COMMUNICATION DEFICIT 04/17/[address] active 3 DIFFICULTY IN WALKING, NOT ELSEWHERE CLASSIFIED 04/17/[address] active 4 FALL ON AND FROM LADDER, SUBSEQUENT ENCOUNTER 04/17/[address] active 5 GASTRO-ESOPHAGEAL REFLUX DISEASE WITHOUT ESOPHAGITIS 04/17/[address] active 6 HYPERLIPIDEMIA, UNSPECIFIED 04/17/[address] active 7 MAJOR DEPRESSIVE DISORDER, SINGLE EPISODE, UNSPECIFIED 04/17/[address] active 8 MENIERE'S DISEASE, UNSPECIFIED EAR 04/17/[address] active 9 MULTIPLE FRACTURES OF RIBS, UNSPECIFIED SIDE, SUBSEQUENT ENCOUNTER FOR FRACTURE WITH ROUTINE HEALING 04/17/[address] active 10 MUSCLE WEAKNESS (GENERALIZED) 04/17/[address] active 11 OTHER SPECIFIED HYPOTHYROIDISM 04/17/[address] active Reason for Referral No Reasons for Referral Entered Social History Social History Observation Description Start Date End Date Code Code System Current Smoking Status Tobacco smoking consumption unknown 322439389 SNOMED CT Sex Assigned At Male 1945 [address]-0 [facility] Vital Signs Code Code System Vitals Name Values and Units Timing Information 66750-7 [facility] Pain Level Value=2.0 04/28/2018 9279-1 [facility] Respiratory Rate Value=18.0 Units=/m in 04/28/2018 8462-4 [facility] Blood Pressure-Diastolic Value=65 Un its=mmHg 04/28/2018 8480-6 [facility] Blood Pressure-Systolic Wtpqn=477 Un its=mmHg 04/28/2018 8310-5 [facility] Body Temperature Value=97.3 Units=?? F 04/28/2018 8867-4 [facility] Heart rate Value=49.0 Units=/min 08/2018 25029-1 [facility] O2 % dC Oximetry Value=95.0 Units= % 04/28/2018 79797-8 LOINC Weight Pncvz=932.0 Units=Lbs 8302-2 [facility] Height Value=68.0 Units=Inches 04/17/2018
--- OUTSIDE RECORDS SUMMARY | 2024-07-18 15:38 | XMS_ITS | Patient Health Record ---
Author Organization [facility] Address [address] [place] [address] Care Team Providers Care Gps Navigation Installer Name Role Phone Spenser Salamanca MD Primary Care Provider Unavaila Mario Carlos Unavailable [phone] Jimmy Baez Unavailable [phone] Allergies Allergen (clinical drug ingredient) Drug/Non Drug [...] W/U Status Risk Notes Problem Atherosclerosis of [place] arteries of the extremities ([id number]) Atherosclerosis of [place] artery of both lower extremities, with unspecified presence of clinical manifestation (I70.203) Active confirmed Vital Signs Blood pressure diastolic 65 mm Hg 06/07/2024 Height 5 ft 9 in in 06/07/2024 Blood pressure systolic 125 mm Hg 06/07/2024 Weight 130 lbs 06/07/2024 BMI 19.2 kg/m2 06/07/2024 Procedures Procedure Date Ordered Date Performed Result Body Sit e 51255-WAILQRW NAIL, 6 OR MORE 11/24/2023 N/A 03649-[place]ers Plate 11/24/2023 N/A 93225-ZPXO SKIN LESIONS, OVER 4 11/24/2023 N/A 53530-NZETDEK NAIL, 6 OR MORE 06/07/2024 N/A 62540-XPEL SKIN LESIONS, OVER 4 06/07/2024 N/A Encounters Encounter Location Date Provider Diagnosis [address] [address] 11/24/2023 Jimmy Baez Atherosclerosis of [place] artery of both lower extremities, with unspecified presence of clinical manifestation I70.203 ; Tinea unguium B35.1 ; Pain in right toe(s) M79.674 ; Pain in left toe(s) M79.675 ; Ingrown nail L60.0 and Xerosis of skin L85.[address] [address] 06/07/2024 Mario Valdez Tinea unguium B35.1 ; Pain in right toe(s) M79.674 ; Pain in left toe(s) M79.675 and Atherosclerosis of [place] artery of both lower extremities, with unspecified presence of clinical manifestation I70.[address] [address] 02/25/2024 Jimmy Baez Assessments Encounter Date Diagnosis (ICD Code) Assessment Notes Treatment Notes Treatment Clinical Notes Section Notes 11/24/2023 Tinea unguium (ICD-10 - B35.1) 11/24/2023 Atherosclerosis of [place] artery of both lower extremities, with unspecified presence of clinical manifestation (ICD-10 - I70.203) 06/07/2024 Tinea unguium (ICD-10 - B35.1) 06/07/2024 Pain in right toe(s) (ICD-10 - M79.674) 06/07/2024 Pain in left toe(s) (ICD-10 - M79.675) 11/24/2023 Pain in right toe(s) (ICD-10 - M79.674) 11/24/2023 Pain in left toe(s) (ICD-10 - M79.675) 06/07/2024 Atherosclerosis of [place] artery of both lower extremities, with unspecified presence of clinical manifestation (ICD-10 - I70.203) 11/24/2023 Ingrown nail (ICD-10 - L60.0) 11/24/2023 Xerosis of skin (ICD-10 - L85.3) Plan Of Treatment Pending Test Test Name Order Date 87568-XCPXGHU NAIL, 6 OR MORE 01/20/2020 75137-FJOYTGQ NAIL, 6 OR MORE 04/27/2020 26291-FDOQNDJ NAIL, 6 OR MORE 10/22/2021 48262-EZXFFDT NAIL, 6 OR MORE 01/24/2022 06812-QYFJRQO NAIL, 6 OR MORE 11/24/2023 91300-ZIFSPAG NAIL, 6 OR MORE 06/07/2024 46282-Bmpehviq Plate 11/24/2023 12230-Ykercsli Plate 01/24/2022 07466-Zjtnytmo Plate 10/22/2021 95051-Usecpgem Plate 01/20/2020 62972-Cuwwksfx Plate 04/27/2020 89249-Ugnwnoag Plate Each Additional 06/2021 48822-Naijtjde Plate Each Additional 04/2021 36059-MJUJ SKIN LESIONS, OVER 4 11/24/19 24 54080-IGBW SKIN LESIONS, OVER 4 01/25/20 22 05643-DOIC SKIN LESIONS, OVER 4 10/23/19 22 45474-AMVD SKIN LESIONS, OVER 4 04/27/19 21 35432-PFJM SKIN LESIONS, OVER 4 01/20/20 20 98481-SWDP SKIN LESIONS, OVER 4 06/08/19 25 Next Appt Details Provider Name:Jimmy Baez , 09/13/2024 01:00:00 PM, [address] [place], [address], Insurance Providers Payer Name Payer Address Payer Phone Subscriber Number Group Number Insured Name Patient Relationship to Insured Coverage Start Date Coverage End Date [employer]vantage [address] [place] [address] [id number] Tito Roque Self - patient is the insured Medical (General) History Medical History History ICD Code Arthritis Back,Hip,and Knee pain CAD (Cholesterol) Chicken pox Measles Joint implants/screws Heart valve conditions/replacement Thyroid Surgical History Surgery Date(Month/Year) brain surgery Heart stent -2 Hospitalization History Reason Date(Month/Year) [facility] -GI Problems 03/2020 [facility] -Fall 2019
== END 2024-07-18 13:09 | disposition home or self-care (01) ==
LOC: HO.MRI 13:08
PROVIDERS: Visit Provider Internal Medicine Endocrinology, Diabetes & Metabolism
DX: D35.2 Benign neoplasm of pituitary gland (principal)
CPT/HCPCS: 70553; A9585

== ENCOUNTER 2024-09-15 11:34 | Outpatient (AMB) | payer MEDICARE, SELFPAY ==
--- OUTSIDE RECORDS SUMMARY | 2024-09-13 09:00 | XMS_ITS ---
Author Organization [facility] Address [address] [place] [address] Care Team Providers Care Rodding Anode Worker Name Role Phone Spenser Salamanca MD Primary Care Provider Jimmy Nguyen [phone] Encounters Encounter Location Date Provider Diagnosis [address] [address] 09/13/2024 Jimmy Baez Plan Of Treatment Next Appt Details Provider Name:Jimmy Baez , 12/20/2024 01:30:00 PM, [address] [place] [address], [address], Progress Notes * JOSIAH TitoDOB:1945 (79 yo M)Acc No.[id number]:09/13/2024 Progress Note Patient: Tito FORBES Provider: Dionisio Baez DPM :1945 A ge:79 Y S ex:Male Date:09/13/2024 Address:[facility] [address] Pcp:Spenser Salamanca MD Subjective: * Chief Complaints: [...] DPM Date: 0 09/13/2024 Generated for Freddy tejeda/Nga/[place] on: 09/15/2024 01:59 PM EDT
--- NOTE | 2024-09-15 11:40 | MHC.PC.OV ---
Vital Signs 09/15/24 11:42 09/15/24 12:06 Height 5 ft 5 in Weight 134 lb BMI 22.3 BP 118/64 Blood Pressure Location Lt brachial Lt brachial Position Sitting Sitting Pulse 89 Temp 97.1 F Temp Source Temporal Artery Scan Pulse Oximetry (%) 100 Oxygen Delivery Method Room Air Intake Visit Reasons: MICHELLE RODRÍGUEZ- FOLLOW UP- see comments Hosiery Operator Required: No Accompanied by: Self / Same As Patient Allergies metoprolol (From Toprol XL) Allergy (Unknown, Verified 09/15/24 11:55) tachycardia Medication List - Last Reconciled 09/15/24 by Trudy Taylor PA-C aspirin (Adult Low Dose Aspirin) 81 mg PO DAILY bupropion HCl (smoking deter) 150 mg PO DAILY hydrocortisone 10 mg PO DAILY hydrocortisone 5 mg PO DAILY hydrocortisone sod succ (PF) (Solu-Cortef Act-O-Vial (PF)) 100 mg (2 mL) IM ONCE levothyroxine 125 mcg PO DAILY miscellaneous medical supply 1 ea miscellaneous DAILY testosterone 30 mg/actuation (1.5 mL) 4 pumps transdermal DAILY 30 days Tobacco use date assessed: 06/22/23 Fall risk assessment: No Falls in past year Last assessed Fall Risk: 09/15/24 Dental Screening Dental Screen Date: 06/22/23 HPI MICHELLE MARCOS- FOLLOW UP- see comments HPI Details 79-year-old male with past medical history of hypothyroidism, coronary artery disease, hyperlipidemia, thoracic aortic aneurysm, ischemic cardiomyopathy, hypogonadism, pituitary macroadenoma, hypertension last seen 10/2023 coming in for follow up/transfer of care. In review of the notes, patient was seen by Cardiology 06/2024 plan to obtain repeat echocardiogram and follow up in 6 months. He follows with endocrinology last seen 04/2024 for pituitary macroadenoma s/p pituitary surgery with development of secondary hypogonadism secondary adrenal insufficiency. Plan to repeat MRI of the pituitary and recommended to follow up with neurosurgeon Dr. Agee. To continue on hydrocortisone replacement. Presenting with sleep disturbances and emotional distress following the recent loss of his spouse. The patient reports significant emotional distress and crying frequently since the passing of his on August 19. He has not yet sought therapy but is considering it in the future. The patient experiences difficulty sleeping and has requested medication to aid sleep. Trazodone was discussed as a potential treatment, with a starting dose of 25 mg recommended. The patient has dry skin, which poses a risk of cracking and infection. A cream was prescribed to manage this condition. The patient sometimes forgets to take his medications, but his daughter assists in ensuring adherence. 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 hypothyroidism Panhypopituitarism Pituitary macroadenoma Hypogonadism in male Hypogonadism Ischemic cardiomyopathy Thoracic aortic aneurysm Aortic valve regurgitation Hyperlipidemia CAD (coronary artery disease) Surgical History History of gastric surgery History of nephrolithotomy with removal of calculi History of coronary artery stent placement History of cholecystectomy History of appendectomy Family History Father Pulmonary embolism Mother CAD (coronary artery disease) Glaucoma Social History Housing: Other Housing Other:: [facility] home Alcohol intake: never Patient Tobacco Use Status: Never used Tobacco e-Cigarette/Vaping Use: Never Used Second Hand Smoke Exposure: No service: No Current occupational status: disabled Cognitive needs: No Hearing needs: No Vision needs: Yes (glasses) Questionnaire PHQ-9 Over the last 2 weeks, how often have you been bothered by any of the following problems? 1. Little interest or pleasure in doing things: not at all 2. Feeling down, depressed, or hopeless: not at all 3. Trouble falling or staying asleep, or sleeping too much: not at all 4. Feeling tired or having little energy: not at all 5. Poor appetite or overeating: not at all 6. Feeling bad about yourself - or that you are a failure or have let yourself or your family down: not at all 7. Trouble concentrating on things, such as reading the newspaper or watching television: not at all 8. Moving or speaking so slowly that other people could have noticed. Or the opposite - being so fidgety or restless that you have been moving around a lot more than usual: not at all 9. Thoughts that you would be better off or of hurting yourself in some way: not at all Total score: 0 Depression Screening Interpretation: Negative Depression Screening Done: Yes 34368 - PHQ-9 Billing: Yes Source: Developed by Drs. Tito Greene, Brittney Shearer, Toñito Macias and colleagues, with an educational pancho from [employer]. Thrive Questionnaire Date Thrive assessed: 09/15/24 I am a: Patient What is your living situation today?: I have a steady place to live Within the past 12 months, did the food you bought not last and you didn't have the money to get more?: Never true Within the past 12 months, did you worry whether your food would run out before you got money to buy more?: Never true Do you have trouble paying for medicines?: No Do you have trouble getting transportation to medical appointments?: No Do you have trouble paying your heating and electricity bill?: No Do you have trouble taking care of your child, family member or friend?: No Do you have trouble with day-to-day activities such as bathing, preparing meals, shopping, managing finances, etc.?: No Are you currently unemployed and looking for a job?: No Are you interested in more education?: No Please select the resources that you would like help with: None Currently or been in a relationship where the following occur: No concerns reported THRIVE Score: 0 AUDIT C Alcohol Use Questionnaire (AUDIT-C) 1. How often do you have a drink containing alcohol?: Never 3. How often do you have six or more drinks on one occasion?: Never Total Score: 0 SPRING-7 AMB Questionnaire SPRING-7 Date SPRING - 7 assessed: 09/15/24 Feeling nervous, anxious, or on edge: 0 = Not at all Not being able to stop or control worryin = Not at all Worrying too much about different things: 0 = Not at all Trouble relaxin = Not at all Being so restless that it is hard to sit still: 0 = Not at all Becoming easily annoyed or irritable: 0 = Not at all Feeling afraid as if something awful might happen: 0 = Not at all Total SPRING-7 score (0-4 normal; 5-9 mild; 10-14 moderate; 15-21 severe): 0 Source: Developed by Drs. Tito Greene, Brittney Shearer, Toñito Macias and colleagues, with an educational pancho from [employer]. SPRING-7 Assessment Billing SPRING-7 Assessment Tool: SPRING-7 Assessment 07970 Review of Systems Const Denies body aches, Denies chills, Denies fever(s), Denies headache(s) and Denies poor appetite Eyes Reports no additional complaints ENT Denies dysphagia, Denies dizziness, Denies headache(s) and Denies odynophagia Card Denies chest pain, Denies syncope, Denies edema, Denies irregular heart rhythm, Denies lightheadedness and Denies dyspnea Resp Denies cough and Denies dyspnea GI Denies abdominal pain, Denies constipation, Denies dysphagia, Denies diarrhea, Denies nausea, Denies odynophagia and Denies vomiting Reports no additional complaints Musc Reports no additional complaints and Denies abnormal gait Skin/Breast Reports system reviewed and no additional complaints, except as documented Neuro Denies abnormal gait, Denies dizziness, Denies syncope and Denies headache(s) Psych Reports no additional complaints Physical exam (Primary Care) Vital Signs: Last Vital Signs Temp 97.1 F 09/15/24 11:42 Pulse 89 09/15/24 11:42 BP 118/64 09/15/24 12:06 Pulse Ox 100 09/15/24 11:42 Oxygen Delivery Method Room Air 09/15/24 11:42 BMI result Body Mass Index 22.3 Tobacco/Smoking Status: Tobacco use Status Tobacco use date assessed 06/22/23 09/15/24 11:49 Patient Tobacco Use Status Never used Tobacco 09/15/24 11:49 e-Cigarette/Vaping Use Never Used 09/15/24 11:49 PHQ-9: PHQ-9 Score PHQ-9: Total score 0 09/15/24 11:54 Depression Screening Interpretation: Negative Thrive Assessment: Date of Thrive Assessment Date Thrive assessed 09/15/24 09/15/24 11:49 Currently or been in a relationship where the following occur: No concerns reported Const General: cooperative, healthy appearing, comfortable and no acute distress Orientation/consciousness: patient oriented x3 HENMT Head: Yes normocephalic Ears: hearing grossly normal bilaterally General nose exam: Normal external nose present Eyes General: appearance normal, both eyes and all related structures Conjunctivae: conjunctivae normal Neck Neck: Yes full ROM and Yes no lymphadenopathy Resp Effort & Inspection: normal respiratory effort Auscultation: clear to auscultation bilaterally, no crackles, no rales, no rhonchi and no wheezes Cardio Rate: regular rate Rhythm: regular rhythm Skin Other: Dry, flaking skin on bilateral upper extremities General skin exam: no rashes or lesions noted Neuro General: patient oriented x3 Gait exam (Neuro): Normal gait present Extrem General: Yes normal to inspection, Yes full ROM and No edema Psych Affect: normal affect Attitude: cooperative Insight: Good insight present (Psych) Judgement: Good judgement present (Psych) Coding Level of Care Code Est Pt Level 4 (12516) Diagnoses Insomnia G47.00 Grief reaction F43.20 Hypertension I10 CAD (coronary artery disease) I25.10 Pituitary macroadenoma D35.2 Dry skin dermatitis L85.3 Additional Codes SPRING-7 Assessment Billing - SPRING-7 Assessment Tool: SPRING-7 Assessment 19934 ([id number]) PHQ-9 - 56752 - PHQ-9 Billing: Yes ([id number]) Assessment & Plan Assessment & Plan (1) Insomnia: Code(s): G47.00 - Insomnia, unspecified Category: Medical Plan: Patient having difficulty sleeping since the passing of his . Plan to start on trazodone 50 mg nightly for both sleep and depressive symptoms. Advised patient he can start on 25 mg at night and taper up to 250 as tolerated. (2) Grief reaction: Code(s): F43.20 - Adjustment disorder, unspecified Category: Medical Plan: See above. Referral to counseling was deferred at this time patient agrees to reach out when he is ready. (3) Hypertension: Code(s): I10 - Essential (primary) hypertension Category: Medical Plan: Continue on current blood pressure medication. Avoid salt intake and encourage healthy diet and regular exercise. (4) CAD (coronary artery disease): Code(s): I25.10 - Atherosclerotic heart disease of [place] coronary artery without angina pectoris Category: Medical Plan: Continue to follow with Cardiology. Echocardiogram is scheduled for his next visit. Continue with good control of blood pressure, cholesterol and blood sugars. Reminded patient about blood work (5) Pituitary macroadenoma: Code(s): D35.2 - Benign neoplasm of pituitary gland Category: Medical Plan: Plan to continue to follow with endocrinology. Patient states he has recently seen his neurosurgeon however windows software engineer last note states he has not been seen in quite some time. Advised patient to schedule appointment with neurosurgeon for continued follow up. (6) Dry skin dermatitis: Code(s): L85.3 - Xerosis cutis Category: Medical Plan: Patient having dry flaky skin of bilateral upper extremities. Prescription for Amlactin sent to pharmacy. Otherwise patient can use other topical emollients such as Aquaphor and Eucerin. Plan The patient was prescribed trazodone to address insomnia and potential depressive symptoms. The initial dose is 25 mg, with instructions to adjust as needed based on response and side effects. Follow-up is scheduled in three months to assess the effectiveness of the medication and make any necessary adjustments. A cream was prescribed to manage dry skin and prevent potential infections due to cracking. The patient was advised to apply it daily to affected areas. The patient was encouraged to consider therapy for emotional support following the loss of his spouse. A referral for counseling will be provided if the patient decides to pursue this option. The patient was reminded to adhere to his medication regimen, with assistance from his daughter, and to follow up with his windows software engineer and neurosurgeon as needed. This note was constructed using voice recognition software. While every effort has been made to ensure accuracy and clinical data management manager, still areas may have been included sometimes these areas may affect the content or meeting of the given symptoms. Total time spent caring for the patient today was 30 minutes. This includes time spent before the visit reviewing the chart, time spent during the visit, and time spent after the visit and documentation. Patient was informed and verbally consented to the use of an ambient scribe for clinic note documentation during this visit. Medications: New trazodone 50 mg PO BEDTIME PRN 90 tabs 0RF sleep ammonium lactate 12% (AmLactin) 1 appl topical DAILY 225 grams 1RF
[2024-09-15 11:42] VITALS: PULSE 89; TEMP 36.2; O2SAT 100; BMI 22.3
[2024-09-15 12:06] VITALS: BP 118/64
== END 2024-09-15 12:16 | disposition home or self-care (01) ==
LOC: HO.HMCH 11:35
DX: G47.00 Insomnia, unspecified (principal); F43.20 Adjustment disorder, unspecified; D35.2 Benign neoplasm of pituitary gland; I10 Essential (primary) hypertension; I25.10 Atherosclerotic heart disease of native coronary artery without angina pectoris; L85.3 Xerosis cutis

== ENCOUNTER → 2024-09-15 11:34 | Outpatient (BNVA) | payer MEDICARE, SELFPAY | DX: I25.10 Atherosclerotic heart disease of native coronary artery without angina pectoris (principal); E03.9 Hypothyroidism, unspecified; E29.1 Testicular hypofunction; I42.9 Cardiomyopathy, unspecified; I10 Essential (primary) hypertension; G47.00 Insomnia, unspecified; F43.20 Adjustment disorder, unspecified; D35.2 Benign neoplasm of pituitary gland; L85.3 Xerosis cutis | CPT/HCPCS: 96127; 99212 ==

== ENCOUNTER 2024-09-17 10:25 | Outpatient (REF) | payer MEDICARE, SELFPAY ==
--- OUTSIDE RECORDS SUMMARY | 2024-09-13 09:00 | XMS_ITS ---
Author Organization [facility] Address [address] [place] [address] Care Team Providers Care Dialysis Social Worker Name Role Phone Spenser Salamanca MD Primary Care Provider Jimmy Nguyen [phone] Encounters Encounter Location Date Provider Diagnosis [address] [address] 09/13/2024 Jimmy Baez Plan Of Treatment Next Appt Details Provider Name:Jimmy Baez , 12/20/2024 01:30:00 PM, [address] [place] [address], [phone], Progress Notes * JOSIAH TitoDOB:1945 (79 yo M)Acc No.[id number]:09/13/2024 Progress Note Patient: Tito FORBES Provider: Dionisio Baez DPM :1945 A ge:79 Y S ex:Male Date:09/13/2024 Address:[facility] [address] Pcp:Spenser Salamanca MD Subjective: * Chief Complaints: [...] 0 09/13/2024 Generated for Freddy tejeda/Nga/[place] on: 0 09/17/2024 10:27 AM EDT
[2024-09-17 11:17] LABS: Hematocrit 41.6 % (42.0-52.0)
[2024-09-17 12:08] LABS: Alanine Aminotransferase 13 U/L (0-40); Albumin Level 4.2 g/dL (3.5-5.0); Alkaline Phosphatase 86 U/L (39-117); Anion Gap 13 (12-20); Aspartate Amino Transferase 23 U/L (5-37); Blood Urea Nitrogen 19 mg/dL (9-16); Carbon Dioxide 25 mmol/L (22-29); Chloride 107 mmol/L (96-108); Cholesterol 189 mg/dL (<200); Estimated Glomerular Filt Rate 51; Glucose Random 94 mg/dL (60-115); HDL Cholesterol 46 mg/dL (>40); LDL Cholesterol Calculated 124 mg/dL (<100); Potassium 3.9 mmol/L (3.3-5.1); Sodium 141 mmol/L (135-145); Triglycerides 98 mg/dL (<150)
[2024-09-17 12:24] LABS: Thyroid Stimulating Hormone 0.35 uIU/mL (0.32-4.0)
[2024-09-26 01:08] LABS: Testosterone, Free 61.3 pg/mL (30.0-135.0); Testosterone, Total 738 ng/dL (250-1100)
== END 2024-09-17 10:26 | disposition home or self-care (01) ==
LOC: HO.LAB 10:25
PROVIDERS: Nurse Practitioner Family; Visit Provider Internal Medicine Endocrinology, Diabetes & Metabolism
DX: E78.5 Hyperlipidemia, unspecified (principal); E03.9 Hypothyroidism, unspecified; E29.1 Testicular hypofunction; E23.0 Hypopituitarism
CPT/HCPCS: 36415; 80053; 80061; 84402; 84403; 84439; 84443; 85014; 85018

== ENCOUNTER 2024-09-21 12:57 | Outpatient (AMB) | payer MEDICARE, SELFPAY ==
--- OUTSIDE RECORDS SUMMARY | 2024-09-13 09:00 | XMS_ITS ---
Author Organization [facility] Address [address] [place] [address] Care Team Providers Care Legislative Correspondent Name Role Phone Spenser Salamanca MD Primary Care Provider Jimmy Nguyen [phone] Encounters Encounter Location Date Provider Diagnosis [address] [address] 09/13/2024 Jimmy Baez Plan Of Treatment Next Appt Details Provider Name:Jimmy Baez , 12/20/2024 01:30:00 PM, [address] [place] [address], [phone], Progress Notes * JOSIAH TitoDOB:1945 (79 yo M)Acc No.[id number]:09/13/2024 Progress Note Patient: Tito FORBES Provider: Dionisio Baez DPM :1945 A ge:79 Y S ex:Male Date:09/13/2024 Address:[facility] [address] Pcp:Spenser Salamanca MD Subjective: * Chief Complaints: [...] 0 09/13/2024 Generated for Freddy tejeda/Davon on: 09/21/2024 01:27 PM EDT
[2024-09-21 12:59] VITALS: BP 112/58; PULSE 83; O2SAT 98; BMI 24.5
--- NOTE | 2024-09-21 12:59 | A.OFFVIS_ITS ---
Vital Signs 09/21/24 12:59 Height 5 ft 5 in Weight 147 lb 0.773 oz BMI 24.5 BP 112/58 L Blood Pressure Location Rt brachial Position Sitting Pulse 83 Pulse Source Pulse Oximeter Pulse Oximetry (%) 98 Oxygen Delivery Method Room Air Intake Visit Reasons: pituitary macrodenoma/hypogonadism/adrenal insuf Intake Note: Patient present today for Pituitary macroadenoma, Hypogonadism, and adrenal insuff follow up visit. Last MRI was done on 07/18/2024 at [facility]. Lead Shipper Required: No Accompanied by: Self / Same As Patient Allergies metoprolol (From Toprol XL) Allergy (Unknown, Verified 09/21/24 13:02) tachycardia HPI Comments Details: 79 YO Male with PMHx 3.3 cm sellar mass s/p resection, now with regrowth, with resultant panhypopituitarism who is seen in F/U. The patient had a large bilobed intra and suprasellar mass measuring 2.3 x 3.3 cm with mass effect on the optic chiasm which was diagnosed in 2014 after he presented with occular symptoms. He had resection of this mass in early 2015 at [facility] in [place], [place] by Dr. Agee. The complete mass was unable to be resected so he had stereotactic radiation therapy shortly after. He reports that this was a benign pituitary lesion, but unfortunately no path report is available. He was formerly followed by Manager Community Development Jian Rahman at [facility]. He chose to switch to a different physician given proximity to his home. 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 He was started on Hydrocortisone 20 mg PO q am with 10 mg PO q pm. He was also started on Levothyroxine 100 mcg PO daily, and androgel supplementation. He was only able to continue the androgel for 3 months after which time it became too expensive for him, so he then remained off supplementation for 2 years. In mid 2018 he decreased his dose of Hydrocortisone to 10 mg q AM and 5 mg q PM. He thereafter began having episodes of LOC and orthostatic symptoms, as well as weight loss. He has had 4 trips to the ER due to LOC since that time. His dose of Hydrocortisone was never increased further, but the episodes of LOC did resolve spontaneously. His previous Manager Community Development recommended IM testosterone injections monthly, but the patient had adamantly refused this. He did have labs which revealed completely absent testosterone by his PCP, and he was subsequently referred to Endocrinology here at [facility]. Labs were repeated and confirmed absent testosterone levels and evidence of hypogonadotropic hypogonadism. He was started on Testosterone Lining Layer Solution 90 mg daily (3 pumps of 30 mg/block bolter mule operator per shoulder every morning). He does take his Levothyroxine correctly, first thing in the morning on an empty stomach. He waits 1 hour to eat and at least 30 minutes to take his other medications. He does report being poorly compliant with this. He also had his Pituitary MRI repeated 12/30/18 which reveals regrowth of the sellar mass, now measuring 2.5 cm. There is no mention of compression of the optic apparatus. He was referred to his Neurosurgeon Dr. Agee, who he has been following with regularly. He then had a repeat MRI 01/11/2020 which revealed the mass now measuring 2.7 cm, and unchanged from prior. His repeat MRIs are ordered by his Neurosurgeon who he follows with regularly. Most recent 02/27/2022 revealing a 2.7 cm mass. He does mention that his energy level has improved since starting the Testosterone. He has had no further episodes of LOC. He denies any leg pain, blood clots, or shortness of breath. He denies any weak urinary stream or difficulty initiating urination. He reports that he does have his medical ID bracelet as well as his solucortCloudyn emergency kit. 09/28/18 Total Testosterone <1 Free Testosterone = Unable to calculate MRI Brain 12/30/18 FINDINGS: The previously seen large sellar/suprasellar mass present on the March 06, 2015 exam has been resected. There is a heterogeneously enhancing recurrent/residual lesion measuring 2.5 x 1.0 x 1.9 cm which expands and fills the width of the sella and bulges into the medial aspect of the right cavernous sinus. The normal pituitary gland is not well resolved separate from this lesion but is possibly seen on series 10 image 03/17 to the left of midline. The infundibulum is thinned and inserts to the left of midline. The normal posterior pituitary bright spot is not seen. There is no mass effect on the optic apparatus. The cavernous segments of the bilateral internal carotid arteries are preserved. There is no acute infarct, hemorrhage, parenchymal mass, or extra-axial fluid collection. Postoperative findings of right pterional craniotomy are noted with some encephalomalacic changes seen in the right frontal lobe. 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 There is diffuse brain parenchymal volume loss with some commensurate prominence of the ventricles and sulci. Moderate foci of T2 hyperintensity are seen throughout the bilateral cerebral white matter most compatible with microangiopathy. No unexpected parenchymal enhancement is seen. A mild degree of pachymeningeal enhancement is seen about the right frontal convexity, presumably postoperative. The extracranial structures are within normal limits allowing for the postoperative findings. No paranasal sinus or mastoid fluid is seen. IMPRESSION: - Interval resection of large sellar/suprasellar mass seen on the March 06, 2015 and MRI. Residual/recurrent expansile enhancing lesion within the sella extending into the medial aspect of the right cavernous sinus which measures up to 2.5 cm. The pituitary gland is not well resolved separate from the lesion but is possibly seen in the left aspect of the sella as detailed above. The infundibulum is diffusely thinned. No mass effect on the optic apparatus. Cavernous carotid flow voids are well preserved. - Postoperative findings of right pterional craniotomy noted. - No acute intracranial abnormality. MRI Brain 03/06/15 FINDINGS: There is a bilobed intra- and suprasellar mass lesion that measures at least 2.3 (AP) x 3.3 (TV) x (SI) centimeters. This extends into the cavernous sinus on both sides with lateral displacement of the cavernous carotid arteries. There is significant mass effect on the optic chiasm, pre-and post chiasmatic optic nerves, hypothalamus, infundibulum, and anterior recess of the third ventricle. [place] vessels are also displaced. Chronic small vessel ischemic changes are seen throughout the supratentorial white matter along with a small chronic lacunar infarct in the right cerebellum. Mild ventricular prominence probably reflects an element of central volume loss. No focal reduced diffusion is seen to suggest acute or subacute cerebral ischemia. No intracerebral edema, intra-axial blood products, midline shift, or extra-axial collection is visualized. The paranasal sinuses are well aerated. Labs: Laboratory Tests 01/30/23 01/30/23 01/30/23 08:57 08:57 08:57 Sodium 139 Potassium 4.1 Creatinine 1.25 Estimated GFR 56 Osmolality 292 Prostate Specific Ag 0.29 TSH 4.91 H Free T4 1.29 Random Cortisol ACTH Pending 04/21/22 08:57 Sodium Potassium Creatinine Estimated GFR Osmolality Prostate Specific Ag TSH Free T4 Random Cortisol 22.7 ACTH recent MRI showed no change in the size of the adenoma. . No problem with urination stream. Low energy level. No orthostatic sx. No libido . on hydrocortisone 10 in the morning and 5 in the evening. On testosterone gel 4 pumps per day. Also on levothyroxine 112 mcg q.d.for some time . Sees Dr. Agee . Seeing an optho . 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 Pituitary macroadenoma Hypogonadism in male Hypogonadism Ischemic cardiomyopathy Thoracic aortic aneurysm Aortic valve regurgitation Hyperlipidemia CAD (coronary artery disease) Surgical History History of gastric surgery History of nephrolithotomy with removal of calculi History of coronary artery stent placement History of cholecystectomy History of appendectomy Family History Father Pulmonary embolism Mother CAD (coronary artery disease) Glaucoma Social History Housing: Other Housing Other:: [facility] home Alcohol intake: never Patient Tobacco Use Status: Never used Tobacco e-Cigarette/Vaping Use: Never Used Second Hand Smoke Exposure: No service: No Current occupational status: disabled Cognitive needs: No Hearing needs: No Vision needs: Yes (glasses) Assessment & Plan Assessment & Plan (1) Hypogonadotropic hypogonadism: Code(s): E23.0 - Hypopituitarism Category: Medical Plan: See plan below (2) Pituitary macroadenoma: Code(s): D35.2 - Benign neoplasm of pituitary gland Category: Medical Plan: This is a 79-year-old white male with a history of a pituitary macroadenoma followed by Neurosurgery status post pituitary surgery with development of secondary hypogonadism, secondary adrenal insufficiency. He also has hypothyroidism but has been able to mount a reasonable TSH suggesting that the hypothyroidism is primary not secondary. He is currently replaced on hydrocortisone 10 mg in the morning and 5 mg in the evening as well as levothyroxine 112 mcg and testosterone gel 4 pumps per day. He appears to be clinically and biochemically euthyroid The plan is to continue the current therapy. will check testosterone level once available and adjust testosterone accordingly. Also told patient to call Dr. Agee neurosurgeon to schedule follow-up appointment . . (3) Secondary adrenal insufficiency: Code(s): E27.49 - Other adrenocortical insufficiency Category: Medical Plan: See plan for pituitary (4) Hypothyroidism: Code(s): E03.9 - Hypothyroidism, unspecified Category: Medical Plan: See plan for hypopituitarism Orders: Orders Testosterone, Free/Total 5 Months E23.0 - Hypopituitarism Free T4 (Free Thyroxine) 5 Months E23.0 - Hypopituitarism Thyroid Stimulating Hormone 5 Months E23.0 - Hypopituitarism Hemoglobin 5 Months E23.0 - Hypopituitarism Prostate Specific Antigen 5 Months E23.0 - Hypopituitarism Hematocrit 5 Months E23.0 - Hypopituitarism Coding Level of Care Code Est Pt Level 3 (33721) Diagnoses Hypogonadotropic hypogonadism E23.0 Pituitary macroadenoma D35.2 Secondary adrenal insufficiency E27.49 Hypothyroidism E03.9
--- OUTSIDE RECORDS SUMMARY | 2024-09-21 13:28 | XMS_ITS | Patient Health Record ---
Author Organization [facility] Address [address] [place] [id number] Care Team Providers Care Front Desk Host Name Role Phone Tito Montiel Unavailable [phone] Reason For Referral No Information Plan Of Treatment No Information
== END 2024-09-21 13:24 | disposition home or self-care (01) ==
LOC: HO.ENCR 12:58
PROVIDERS: Visit Provider Internal Medicine Endocrinology, Diabetes & Metabolism
DX: E23.0 Hypopituitarism (principal); D35.2 Benign neoplasm of pituitary gland; E27.49 Other adrenocortical insufficiency; E03.9 Hypothyroidism, unspecified
CPT/HCPCS: 99213

== ENCOUNTER → 2024-09-21 12:57 | Outpatient (BNVA) | payer MEDICARE, SELFPAY | PROVIDERS: Visit Provider Internal Medicine Endocrinology, Diabetes & Metabolism | DX: E23.0 Hypopituitarism (principal); E27.49 Other adrenocortical insufficiency; E03.9 Hypothyroidism, unspecified; D35.2 Benign neoplasm of pituitary gland | CPT/HCPCS: 99212 ==

== ENCOUNTER → 2024-10-06 13:04 | Outpatient (REF) | payer MEDICARE, SELFPAY ==
--- NOTE | 2024-10-06 13:17 | CA_ITS ---
Transthoracic Echocardiogram Patient (Last, First, Middle): Tito Roque L Gender: Male Date of : 1945 Age: 79 Procedure Date: 10/06/2024 Procedure Type: Transthoracic Echocardiogram Location: OP Height: 172. cm Weight: 67.13 kg BSA: 1.79 m2 Heart Rate: 72 bpm BP: 120 / 70 mmHg Welfare Eligibility Worker: ROBIN Referring MD: Iqra Maya DIRECTOR [employer]OP[employer]us Symptoms: I25.10 - Atherosclerotic heart disease of [place] coronary artery without... Study Quality: Adequate w/Contrast ECG Rhythm: Sinus Conclusions: - The left ventricular systolic function is mildly decreased. The calculated ejection fraction is 50% by biplane method. - The basal inferolateral segment is akinetic. - There is moderate mitral annular calcification. - There is mild dilatation of the ascending aorta measuring 4.30 cm. Findings Procedure Information Contrast agent, definity, is being given per protocol without apparent complications. Left Ventricle Normal left ventricular cavity size. There is normal left ventricular wall thickness. The left ventricular systolic function is mildly decreased. The calculated ejection fraction is 50% by biplane method. Evidence suggests grade I (mild) diastolic dysfunction. Wall Motion Rest Echo Findings The basal inferolateral segment is akinetic. Right Ventricle Normal right ventricular cavity size and systolic function. Atria Both atria are normal in size. Aortic Valve There is a normal trileaflet aortic valve. There is no aortic valve stenosis. There is mild aortic valve regurgitation. Trace to mild aortic regurgitation. Mitral Valve There is moderate mitral annular calcification. There is no mitral valve regurgitation. There is no mitral valve stenosis. Pulmonic Valve The pulmonic valve is likely normal. Tricuspid Valve There is trace tricuspid valve regurgitation. There is no evidence of pulmonary hypertension. Great Vessels The aortic arch is normal in size. There is mild dilatation of the ascending aorta measuring 4.30 cm. Venous The inferior vena cava was not well visualized. Pericardium/Pleural There is no evidence of pericardial effusion. Prior Study Comparison Changes noted compared to prior study dated: 10/27/2022. LVEF higher than previously reported. Measurements 2D Linear Measurements IVSd: 0.74 0.6-0.9/0.6-1.0 cm LVIDd: 5.92 3.9-5.3/4.2-5.9 cm LVIDd Index: 3.31 2.4-3.2/2.2-3.1 cm/m2 LVIDs: 4.15 2.0-3.6 cm LVPWd: 0.84 0.7-1.1 cm LA Diam: 4.30 2.7-3.8/3.0-4.0 cm LAIDs Index: 2.40 1.5-2.3 cm/m2 LV Mass: 223.33 67-162/88-224 g LV Mass Index: 124.76 43-95/49-115 g/m2 LVOT Diam: 2.50 3.0+(-)1.3 cm 2D Systolic Function EF 4C: 38.80 >55% EF 2C: 60.70 >55% EF BiP: 50.20 >55% Mitral Valve MV Pk E: 0.54 MV PK A: 1.02 MV Decel Time: 306.00 E/A: 0.50 E'Lateral: 5.87 E'Medial: 4.57 E/E' Med: 11.80 E/E' Lat: 9.20 PHT: 90.00 MVA PHT: 2.44 Decel [place]: 1.77 Aortic Valve AoV Pk Adrien: 1.38 AoV Mn Adrien: 0.90 AoV VTI: 0.25 AoV Pk Grad: 8.00 Aov Mn Grad: 4.00 EMILY Cont.VTI: 3.94 LVOT LVOT Pk Adrien: 1.06 LVOT Mn Adrien: 0.70 LVOT VTI: 0.20 LVOT Pk Grad: 4.00 LVOT Mn Grad: 2.00 LVOT Diam: 2.50 LVOT Area: 4.91 Diastolic Function MV Pk E: 0.54 MV Pk A: 1.02 E/A: 0.50 E'Medial: 4.57 E/E' Med: 11.80 E' Laterial: 5.87 E/E' Lat: 9.20 Right Ventricle TAPSE (mm): 27.70 TVS' Adrien: 15.60 Tricuspid Valve TR Pk Adrien: 1.54 TR Pk Grad: 9.00 Great Vessels Aorta Sinus of Valsalva: 3.80 2.0-3.5 cm Ao Asc: 4.30 2.1-3.4 cm Ao Arch: 3.60 Pulmonary Valve PV Pk Adrien: 0.72 Peak PV Grad: 2.00 Updated in Other Vendor System with Status of Final Leon Alvarez MD electronically signed on 10/07/2024 3:20:29 PM with status of Final
--- OUTSIDE RECORDS SUMMARY | 2024-10-06 13:36 | XMS_ITS | Patient Health Record ---
Author Organization [facility] Address [address] [place] [phone] Care Team Providers Care Rod And Tube Straightener Name Role Phone Tito Montiel Unavailable [phone] Reason For Referral No Information Plan Of Treatment No Information
== END ==
LOC: HO.CARD 13:04
PROVIDERS: Visit Provider Nurse Practitioner Family
DX: I25.10 Atherosclerotic heart disease of native coronary artery without angina pectoris (principal); I25.5 Ischemic cardiomyopathy
CPT/HCPCS: 93306; Q9957

== ENCOUNTER → 2024-10-06 13:17 | Outpatient (BNV) | payer MEDICARE, SELFPAY | PROVIDERS: Visit Provider Internal Medicine | DX: I34.81 Nonrheumatic mitral (valve) annulus calcification (principal); I35.1 Nonrheumatic aortic (valve) insufficiency; I51.89 Other ill-defined heart diseases | CPT/HCPCS: 93306 ==

== ENCOUNTER 2024-12-27 13:58 | Outpatient (AMB) | payer MEDICARE, SELFPAY ==
--- OUTSIDE RECORDS SUMMARY | 2024-02-26 09:30 | XMS_ITS ---
Author Organization [facility] Address [address] [place] [address] Care Team Providers Care Saas Architect Name Role Phone Spenser Salamanca MD Primary Care Provider Jimmy Nguyen [phone] Encounters Encounter Location Date Provider Diagnosis [address] [address] 02/26/2024 Jimmy Baez Plan Of Treatment Next Appt Details Provider Name:Jimmy Baez , 04/14/2025 01:45:00 PM, [address] [place] [address], [id number], Progress Notes * JOSIAH TitoDOB:1945 (79 yo M)Acc No.[id number]:02/26/2024 Progress Note Patient: Tito FORBES Provider: Dionisio Baez DPM :1945 A ge:79 Y S ex:Male Date:02/26/2024 Address:[facility] [address] Pcp:Spenser Salamanca MD Subjective: * Chief Complaints: * * Medical History: Objective: * Vitals: Assessment: Plan: * Treatment: * Images: * The named appointment provid er may or may not be the originator of this progress note, and it is not deemed complete until electronically signed by the appointment provider. Sign off status: Pending * Provider: Dionisio Baez DPM Date: 1 04/28/2023 Generated for Freddy tejeda/Davon on: 05:14 PM EDT
--- OUTSIDE RECORDS SUMMARY | 2024-09-13 09:00 | XMS_ITS ---
Author Organization [facility] Address [address] [place] [address] Care Team Providers Care Pharmaceutical Botanist Name Role Phone Spenser Salamanca MD Primary Care Provider Jimmy Nguyen [phone] Encounters Encounter Location Date Provider Diagnosis [address] [address] 09/13/2024 Jimmy Baez Plan Of Treatment Next Appt Details Provider Name:Jimmy Baez , 04/14/2025 01:45:00 PM, [address] [place] [address], [address], Progress Notes * JOSIAH TitoDOB:1945 (79 yo M)Acc No.[id number]:09/13/2024 Progress Note Patient: Tito FORBES Provider: Dionisio Baez DPM :1945 A ge:79 Y S ex:Male Date:09/13/2024 Address:[facility] [address] Pcp:Spenser Salamanca MD Subjective: * Chief Complaints: * * Medical History: Objective: * Vitals: Assessment: Plan: * Treatment: * Images: * The named appointment provid er may or may not be the originator of this progress note, and it is not deemed complete until electronically signed by the appointment provider. Sign off status: Pending * Provider: Dionisio Baez DPM Date: 0 09/13/2024 Generated for Freddy tejeda/[place] on: 1 05:14 PM EDT
[2024-12-27 14:00] VITALS: BP 132/62; PULSE 89; TEMP 36.3; O2SAT 99; BMI 22.7
--- NOTE | 2024-12-27 14:00 | MHC.PC.OV ---
Vital Signs 12/27/24 14:00 Height 5 ft 5 in Weight 136 lb 3.931 oz BMI 22.7 BP 132/62 Blood Pressure Location Lt brachial Position Sitting Pulse 89 Pulse Source Pulse Oximeter Temp 97.3 F Temp Source Temporal Artery Scan Pulse Oximetry (%) 99 Oxygen Delivery Method Room Air Intake Visit Reasons: s/p fall with back pain, discuss PT at home Accompanied by: Daughter Allergies metoprolol (From Toprol XL) Allergy (Unknown, Verified 12/27/24 14:05) tachycardia Medication List - Last Reconciled 12/27/24 by Cassie Harris MD ammonium lactate 12% (AmLactin) 1 appl topical DAILY aspirin (Adult Low Dose Aspirin) 81 mg PO DAILY atorvastatin (Lipitor) 40 mg PO BEDTIME bupropion HCl (smoking deter) 150 mg PO BID 90 days hydrocortisone 10 mg PO DAILY hydrocortisone 5 mg PO DAILY hydrocortisone sod succ (PF) (Solu-Cortef Act-O-Vial (PF)) 100 mg (2 mL) IM ONCE levothyroxine 125 mcg PO DAILY miscellaneous medical supply 1 ea miscellaneous DAILY testosterone 30 mg/actuation (1.5 mL) 4 pumps transdermal DAILY 30 days Tobacco use date assessed: 12/27/24 Fall risk assessment: 2 + Falls in past year Last assessed Fall Risk: 12/27/24 Dental Screening Dental Screen Date: 12/27/24 Did you have a dental visit in the last 12 months?: No Did you have a dental problem in the last 6 months where you did not have access to dental care?: No Was dental information given to patient?: No HPI HPI Comments History of Present Illness Details The patient is a 79-year-old male presenting with fall-related injuries. The patient experienced two falls over a month ago, one of which resulted in him being on the floor for three hours without assistance. The first fall was due to tripping over furniture, while the second occurred on wet stairs while retrieving a package. He did not visit the emergency department post-fall and reported soreness but no head injury or loss of consciousness. The patient lives alone but receives frequent assistance from family members who help with daily activities and ensure his safety. Home modifications such as bed handles and shower seats are in place, although further safety assessments are considered. 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 Hypogonadism in male Hypogonadism Ischemic cardiomyopathy Thoracic aortic aneurysm Aortic valve regurgitation Hyperlipidemia CAD (coronary artery disease) Surgical History History of gastric surgery History of nephrolithotomy with removal of calculi History of coronary artery stent placement History of cholecystectomy History of appendectomy Family History Father Pulmonary embolism Mother CAD (coronary artery disease) Glaucoma Social History Housing: Other Housing Other:: moblie home Alcohol intake: never Patient Tobacco Use Status: Never used Tobacco e-Cigarette/Vaping Use: Never Used Second Hand Smoke Exposure: No service: No Current occupational status: disabled Cognitive needs: No Hearing needs: No Vision needs: Yes (glasses) Questionnaire PHQ-9 Over the last 2 weeks, how often have you been bothered by any of the following problems? 1. Little interest or pleasure in doing things: not at all 2. Feeling down, depressed, or hopeless: not at all 3. Trouble falling or staying asleep, or sleeping too much: not at all 4. Feeling tired or having little energy: not at all 5. Poor appetite or overeating: not at all 6. Feeling bad about yourself - or that you are a failure or have let yourself or your family down: not at all 7. Trouble concentrating on things, such as reading the newspaper or watching television: not at all 8. Moving or speaking so slowly that other people could have noticed. Or the opposite - being so fidgety or restless that you have been moving around a lot more than usual: not at all 9. Thoughts that you would be better off or of hurting yourself in some way: not at all Total score: 0 Depression Screening Interpretation: Negative Depression Screening Done: Yes Source: Developed by Drs. Tito Greene, Brittney Shearer, Toñito Macias and colleagues, with an educational pancho from [employer]. Thrive Questionnaire Date Thrive assessed: 09/15/24 I am a: Patient What is your living situation today?: I have a steady place to live Within the past 12 months, did the food you bought not last and you didn't have the money to get more?: Never true Within the past 12 months, did you worry whether your food would run out before you got money to buy more?: Never true Do you have trouble paying for medicines?: No Do you have trouble getting transportation to medical appointments?: No Do you have trouble paying your heating and electricity bill?: No Do you have trouble taking care of your child, family member or friend?: No Do you have trouble with day-to-day activities such as bathing, preparing meals, shopping, managing finances, etc.?: No Are you currently unemployed and looking for a job?: No Are you interested in more education?: No Please select the resources that you would like help with: None Currently or been in a relationship where the following occur: No concerns reported THRIVE Score: 0 AUDIT C Alcohol Use Questionnaire (AUDIT-C) 1. How often do you have a drink containing alcohol?: Never 3. How often do you have six or more drinks on one occasion?: Never Total Score: 0 SPRING-7 AMB Questionnaire SPRING-7 Date SPRING - 7 assessed: 09/15/24 Feeling nervous, anxious, or on edge: 0 = Not at all Not being able to stop or control worryin = Not at all Worrying too much about different things: 0 = Not at all Trouble relaxin = Not at all Being so restless that it is hard to sit still: 0 = Not at all Becoming easily annoyed or irritable: 0 = Not at all Feeling afraid as if something awful might happen: 0 = Not at all Total SPRING-7 score (0-4 normal; 5-9 mild; 10-14 moderate; 15-21 severe): 0 Source: Developed by Drs. Tito Greene, Brittney Shearer, Toñito Macias and colleagues, with an educational pancho from [employer]. Review of Systems Const Details: Positives besides what was mentioned in HPI are in BOLD Constitutional: No Weight Change, No Fever, No Chills, No Night Sweats, No Fatigue, No Malaise ENT/Mouth: No Hearing Changes, No Ear Pain, No Nasal Congestion, No Sinus Pain, No Hoarseness, No sore throat, No Rhinorrhea, No Swallowing Difficulty Eyes: No Eye Pain, No Swelling, No Redness, No Foreign Body, No Discharge, No Vision Changes Cardiovascular: No Chest Pain, No SOB, No PND, No Dyspnea on Exertion, No Orthopnea, No Claudication, No Edema, No Palpitations Respiratory: No Cough, No Sputum, No Wheezing, No Smoke Exposure, No Dyspnea Gastrointestinal: No Nausea, No Vomiting, No Diarrhea, No Constipation, No Pain, No Heartburn, No Anorexia, No Dysphagia, No Hematochezia, No Melena, No Flatulence, No Jaundice Genitourinary: No Dysmenorrhea, No DUB, No Dyspareunia, No Dysuria, No Urinary Frequency, No Hematuria, No Urinary Incontinence, No Urgency, No Flank Pain, No Urinary Flow Changes, No Hesitancy Musculoskeletal: No Arthralgias, No Myalgias, No Joint Swelling, No Joint Stiffness, No Back Pain, No Neck Pain, No Injury History Skin: No Skin Lesions, No Pruritis, No Hair Changes, No Breast/Skin Changes, No Nipple Discharge Neuro: No Weakness, No Numbness, No Paresthesias, No Loss of Consciousness, No Syncope, No Dizziness, No Headache, No Coordination Changes, No Recent Falls Psych: No Anxiety/Panic, No Depression, No Insomnia, No Personality Changes, No Delusions, No Rumination, No SI/HI/AH/VH, No Social Issues, No Memory Changes, No Violence/Abuse Hx., No Eating Concerns Heme/Lymph: No Bruising, No Bleeding, No Transfusions History, No Lymphadenopathy Endocrine: No Polyuria, No Polydipsia, No Temperature Intolerance Physical exam (Primary Care) Vital Signs: Last Vital Signs Temp 97.3 F 12/27/24 14:00 Pulse 89 12/27/24 14:00 BP 132/62 12/27/24 14:00 Pulse Ox 99 12/27/24 14:00 Oxygen Delivery Method Room Air 12/27/24 14:00 BMI result Body Mass Index 22.7 Tobacco/Smoking Status: Tobacco use Status Tobacco use date assessed 12/27/24 12/27/24 14:06 Patient Tobacco Use Status Never used Tobacco 12/27/24 14:06 e-Cigarette/Vaping Use Never Used 12/27/24 14:06 PHQ-9: PHQ-9 Score PHQ-9: Total score 0 12/27/24 14:10 Depression Screening Interpretation: Negative Thrive Assessment: Date of Thrive Assessment Date Thrive assessed 09/15/24 12/27/24 14:06 Currently or been in a relationship where the following occur: No concerns reported Const Other: Pertinent findings are in BOLD GENERAL APPEARANCE NAD, activity normal for age, well developed/ well nourished, no cyanosis, pallor, or diaphoresis. EYES lids/conjunctiva normal. EARS/NOSE/THROAT Mucous membranes moist, nares normal, lips/teeth normal uvula midline without oral pharyngeal erythema, exudate or swelling TMs normal bilaterally. No lymphangitis/lymphedema. HEAD/NECK normocephalic atraumatic, no facial trauma, neck is supple. RESPIRATORY respiratory effort normal, speaks in full sentences, no tripod position, no accessory muscle use. Lungs clear to auscultation without rhonchi, wheezes, rales CARDIAC Regular rate and rhythm, no edema. ABDOMINAL Soft, ND/NT. No evidence of fluid wave. No pulsatile masses on exam, rebound tenderness, Reich sign or pain over Mcburney's point. MUSCLES/EXTREMITIES No abnormal range of motion, no swelling. SKIN Warm, pink and dry. No rashes, dermatoses, petechiae or lesions. NEUROLOGICAL Speech is clear and appropriate. Normal level of consciousness. Gait and coordination are normal. 5/5 strength in all extremities. PSYCH Normal mood and affect. Judgement/competence is appropriate Office Procedures Flu Questionnaire Does the patient have a severe egg allergy?: No Does the patient have severe life threatening allergies?: No Does the patient have a fever or illness today?: No Has the patient ever had Guillain-Filion Syndrome?: No Has the patient ever had any past reaction to a flu shot?: No Immunizations Fluarix [id number] (PF) 45 mcg (15 mcg x 3)/0.5 mL IM syringe Performing Provider: Cassie Harris MD Performing Location[place] [facility] [place] [facility] Administered by: Katey Xie CMA on 12/27/24 14:10 Dose Route Admin Location Dispensed Lot Number Expiration Date [facility] Quality Control Head 0.5 mL IM Left Deltoid 0.5 mL [id number] 09/19/25 [id number] NONO VIS Given Date VIS Provided VIS Publication Date 12/27/24 Single Vaccine 24 Eligibility Eligibility Date Funding Source Not [facility] Eligible 12/27/24 Private Coding Level of Care Code Est Pt Level 3 (78468) Diagnoses Falls R29.6 Time Spent (min) 20 Assessment & Plan Assessment & Plan (1) Falls: Code(s): R29.6 - Repeated falls Category: Medical Plan: - Evaluated the need for home safety assessment to identify potential hazards. - Considered the installation of additional safety features such as grab bars. - Recommended physical therapy to improve mobility and strength. - [facility]NA referral to assist with home care aide. Plan I discussed with the patient the importance of home safety modifications to prevent future falls and recommended physical therapy to improve mobility and strength. We also considered the installation of additional safety features such as grab bars and evaluated the need for a home safety assessment to identify potential hazards. Orders: Orders Influenza [id number] Immunization Today Z23 - Encounter for immunization PT Evaluation and Treatment Today R29.6 - Repeated falls Referrals [facility] Referral R29.6 - Repeated falls Nurse Navigator Referral R29.6 - Repeated falls
--- OUTSIDE RECORDS SUMMARY | 2024-12-27 17:14 | XMS_ITS | Clinical Summary ---
Author Organization [facility] Address [address] [place] [phone] Phone Care Team Providers Care Polisher Dial Name Role Phone Spenser Salamanca MD Primary Care Provider [phone] Social History Tobacco Use Types Packs/Day Years [...] Recorded Sex Assigned at Not on file Legal Sex Male 12:57 PM EST Gender Identity Not on file Sexual Orientation Not on file Plan of Treatment Health Maintenance Due Date Last Done Comments Adult Td,Tdap Booster 1947 LIPID PANEL 1947 DEPRESSION SCREENING 1959 SMOKING Hx and SMOKELESS TOBACCO SCREENING 01/13/1960 HEPATITIS C SCREENING 1965 PNEUMOCOCCAL VACCINES (50+ years) (1 of 1 - PCV) 1997 ZOSTER VACCINES (1 of 2) 1997 RSV VACCINE (1 - 1-dose 75+ series) 2022 INFLUENZA VACCINE (#1) 2024 0, 01/11/2019, 12/29/2017, Additional history exists COVID-19 VACCINE (2 - 2024 season) 2024 07/26/2020 HEPATITIS A VACCINES Aged Out No long er eligible based on patient's age to complete this topic HIB VACCINES Aged Out No longer eligi ble based on patient's age to complete this topic MENINGOCOCCAL VACCINES (ACWY) Aged Out No longer eligible based on patient's age to complete this topic MENINGOCOCCAL VACCINES (B) Aged Out N o longer eligible based on patient's age to complete this topic Medical Devices Not on file Insurance MEDICARE HMO REPLACEMENT [facility] [employer] [place] [employer] REPLACEMENT MEDICARE HMO REPLACEMENT MEDIC[employer] [facility] [place] MED[employer] HMO REPLACEMENT MEDIC[employer] HMO [employer] [facility] [place] [employer] HMO RE[employer]EMENT [facility] [place] [employer] HMO REPLACEMENT [employer] [place] [employer] HMO REPLACEMENT Care Teams Polisher Dial Relationship Specialty Start Date End Date Spenser Salamanca MD [address] [place] [address] [place] [address] (work) PCP - General Internal Medicine 04/08/19 Additional Source Comments The information contained in this document represents components of the legal health record. It is not the complete legal health record.[facility]
--- OUTSIDE RECORDS SUMMARY | 2024-12-27 17:14 | XMS_ITS | Encounter Summary ---
Author Organization [facility] Address [address] [place] [phone] Phone Care Team Providers Care Mural Artist Name Role Phone Unknown, Unknown Primary Care Provider Spenser Vincent MD Primary Care Provider [phone] Encounter Details Date Type Department Care Team (Latest Contact Info) Description 04/27/2018 Transcribe Orders [facility] Specimen Processing [address] [place] [address] Abel De Anda MD [address] [facility] [address], [address] [place] [address] [email or web address] Hyperlipidemia, unspecified hyperlipidemia type (Primary Dx); Gastroesophageal reflux disease, esophagitis presence not specified; Chronic kidney disease, unspecified CKD stage; Coronary artery disease, angina presence unspecified, unspecified vessel or lesion type, unspecified whether [place] or transplanted heart Social History Tobacco Use [...] EST) SODIUM 142 133 - 146 mmol/L [facility] CHLORIDE 105 96 - 108 mmol/L [facility] POTASSIUM 3.7 3.3 - 5.1 mmol/L [facility] CO2 24 21 - 35 mmol/L [facility] BUN 15 6 - 19 mg/dL [facility] CREATININE 1.10 0.5 - 1.5 mg/dL [facility] GLUCOSE 79 70 - 99 mg/dL [facility] CALCIUM 8.5 8.4 - 10.3 mg/dL [facility] EGFR 67 >59 mL/min/1.7 3m2 [facility] Comment:If patient is black, multiply result by 1.159. Estimated glomerular filtration rate calculated using the CKD-EPI equation. ANION GAP 17 10 - 20 mmol/L [facility] Blood 04/27/2018 5:20 AM EST 04/27/2018 8:18 AM EST us Abel De Anda MD LAB BLOOD ORDERABLES Final Resul t [address] [address] * (ABNORMAL) CBC (04/27/2018 5:20 AM EST) WBC 7.05 3.40 - 11.20 K/uL [facility] RBC 3.94(L) 4.50 - 5.50 M/uL [facility] HGB 11.6(L) 13.0 - 17.0 g/dL [facility] HCT 34.9(L) 40.0 - 51.0 % [facility] PLT 348 130 - 400 K/uL [facility] MCV 88.6 79.0 - 98.0 fL [facility] MCH 29.4 27.0 - 34.8 pg [facility] MCHC 33.2 31.5 - 36.0 g/dL [facility] RDW 14.7(H) 10.8 - 14.6 % [facility] MPV 11.0 9.4 - 12.4 fl [facility] NRBC 0.00 0.00 /100 WBCs [facility] ABSOLUTE NRBC 0.00 0.00 K/uL [facility] Blood 04/27/2018 5:20 AM EST 04/27/2018 8:18 AM EST us Abel De Anda MD LAB BLOOD ORDERABLES Final Resul t [facility] [address] [place] [address] documented in this encounter Visit Diagnoses Diagnosis Hyperlipidemia, unspecified hyperlipidemia type- Primary Gastroesophageal reflux disease, esophagitis presence not specified Chronic kidney disease, unspecified CKD stage Coronary artery disease, angina presence unspecified, unspecified vessel or lesion type, unspecified whether [place] or transplanted heart documented in this encounter Care Teams Mural Artist Relationship Specialty Start Date End Date Unknown, Unknown, MD PCP - General 04/19/18 04/07/19 Spenser Salamanca MD [address] [place] [address] [facility] [place] [address] PCP - General Internal Medicine 04/08/19 documented as of this encounter Additional Source Comments The information contained in this document represents components of the legal health record. It is not the complete legal health record.[facility]
--- OUTSIDE RECORDS SUMMARY | 2024-12-27 17:14 | XMS_ITS | Patient Health Record ---
Author Organization [facility] Address [address] [place] [id number] Care Team Providers Care Doughmaker Name Role Phone Tito Montiel Unavailable [phone] Reason For Referral No Information Plan Of Treatment No Information
--- OUTSIDE RECORDS SUMMARY | 2024-12-27 17:15 | XMS_ITS | Patient Health Record ---
Author Organization [facility] Address [address] [facility] [place] [address] Care Team Providers Care Industrial Engineering Manager Name Role Phone Spenser Salamanca MD Primary Care Provider Unavaila Jimmy Pena Unavailable [phone] Laura Morales Unavailable [phone] Mario Valdez Unavailable [phone] Allergies Allergen (clinical drug ingredient) Drug/Non Drug Allergy documented on EMR Reaction Allergy Type Onset Date Status aspirin Aspirin Unknown Drug Allergy Active Reason For Referral No Information Medications Medication SIG (Take, Route, Frequency, Duration) Notes Start Date End Date Status Rosuvastatin Calcium 20 MG 1 tablet Oral ly Once a day; Duration: 30 day(s) Not-Taking Levothyroxine Sodium 50 MCG 1 tablet in the morning on an empty stomach Orally Once a day; Duration: 30 day(s) Active Ammonium Lactate 12 % 1 application Externally to feet except for between the toes Twice a day; Duration: 30 days Active buPROPion HCl ER (Smoking Det) 150 MG 1 tablet in the morning Orally Once a day; Duration: 30 day(s) Active Hydrocortisone 10 MG 1 tablet with food or milk Orally every 12 hrs; Duration: 30 day(s) Active Baby Aspirin Not-Pete ing Immunizations Vaccine Route Administration Date Status Comme nts Influenza Unknown 12/22/2023 Administered Social History Tobacco Use: Social History Observation [...] Problem Status W/U Status Risk Notes Problem Bilateral atherosclerosis of arteries of lower limbs (disorder) (21512999409981322 ) Atherosclerosis of hughes artery of both lower extremities, with unspecified presence of clinical manifestation (I70.203) Active confirmed Vital Signs Blood pressure diastolic 65 mm Hg 12/20/2024 Height 5 ft 9 in in 12/20/2024 Blood pressure systolic 128 mm Hg 12/20/2024 Weight 148 lbs 12/20/2024 BMI 21.85 kg/m2 12/20/2024 Procedures Procedure Date Ordered Date Performed Result Body Sit e 92304-FMGCEYT NAIL, 6 OR MORE 06/07/2024 N/A 42317-RYHT SKIN LESIONS, OVER 4 06/07/2024 N/A 81101-AHJAATB NAIL, 6 OR MORE 09/14/2024 N/A 33150-GMKZ SKIN LESIONS, OVER 4 09/14/2024 N/A 16323-KZYFQCZ NAIL, 6 OR MORE 12/20/2024 N/A 13313 I&D ABSCESS- SIMPLE,SINGLE 12/20/2024 N/A 98899-FIXY SKIN LESIONS, OVER 4 12/20/2024 N/A Encounters Encounter Location Date Provider Diagnosis [facility] [address] [place] [address] 06/07/2024 Mario Valdez Tinea unguium B35.1 ; Pain in right toe(s) M79.674 ; Pain in left toe(s) M79.675 and Atherosclerosis of hughes artery of both lower extremities, with unspecified presence of clinical manifestation I70.[address] [facility] [address] 09/14/2024 Laura Morales Tinea unguium B35.1 ; Pain in right toe(s) M79.674 ; Pain in left toe(s) M79.675 and Atherosclerosis of hughes artery of both lower extremities, with unspecified presence of clinical manifestation I70.[address] [address] 12/20/2024 Jimmy Baez Tinea unguium B35.1 ; Atherosclerosis of hughes artery of both lower extremities, with unspecified presence of clinical manifestation I70.203 ; Pain in right toe(s) M79.674 ; Pain in left toe(s) M79.675 and Abscess of toe, left L02.612 [facility] [address] [address] 02/25/2024 Jimmy Baez [facility] [address] [address] 09/05/2024 Jimmy Baez Assessments Encounter Date Diagnosis (ICD Code) Assessment Notes Treatment Notes Treatment Clinical Notes Section Notes 06/07/2024 Tinea unguium (ICD-10 - B35.1) 06/07/2024 Pain in right toe(s) (ICD-10 - M79.674) 09/14/2024 Tinea unguium (ICD-10 - B35.1) 12/20/2024 Tinea unguium (ICD-10 - B35.1) 12/20/2024 Atherosclerosis of hughes artery of both lower extremities, with unspecified presence of clinical manifestation (ICD-10 - I70.203) 09/14/2024 Pain in right toe(s) (ICD-10 - M79.674) 06/07/2024 Pain in left toe(s) (ICD-10 - M79.675) 06/07/2024 Atherosclerosis of hughes artery of both lower extremities, with unspecified presence of clinical manifestation (ICD-10 - I70.203) 09/14/2024 Pain in left toe(s) (ICD-10 - M79.675) 12/20/2024 Pain in right toe(s) (ICD-10 - M79.674) 12/20/2024 Pain in left toe(s) (ICD-10 - M79.675) 09/14/2024 Atherosclerosis of hughes artery of both lower extremities, with unspecified presence of clinical manifestation (ICD-10 - I70.203) 12/20/2024 Abscess of toe, left (ICD-10 - L02.612) Patient Educated with: WOUND CARE INSTRUCTIONS. pdf (WOUND CARE INSTRUCTIONS. pdf) Plan Of Treatment Pending Test Test Name Order Date 92398-QNSHEEE NAIL, 6 OR MORE 01/20/2020 47861-IOJGXLL NAIL, 6 OR MORE 04/27/2020 98000-JDWRRNK NAIL, 6 OR MORE 10/22/2021 21195-RAXUYUI NAIL, 6 OR MORE 01/24/2022 95246-TUAKFSJ NAIL, 6 OR MORE 11/24/2023 14481-OWIONJA NAIL, 6 OR MORE 06/07/2024 21016-UXECQHV NAIL, 6 OR MORE 09/14/2024 54508-ZVXYFLN NAIL, 6 OR MORE 12/20/2024 19824-Nytippyj Plate 11/24/2023 69326-Zqyfxpdb Plate 01/24/2022 56951-Szebornh Plate 10/22/2021 73929-Lhosqdfe Plate 01/20/2020 85307-Gwqxmbbe Plate 04/27/2020 35726-Yyrysubw Plate Each Additional 06/2021 55664-Iyrwqtid Plate Each Additional 04/2021 50766 I&D ABSCESS- SIMPLE,SINGLE 025 68357-FAUG SKIN LESIONS, OVER 4 12/21/19 25 28368-WZYU SKIN LESIONS, OVER 4 09/15/19 25 84151-TYCU SKIN LESIONS, OVER 4 06/08/19 25 55438-WSCQ SKIN LESIONS, OVER 4 11/24/19 24 74452-KMHK SKIN LESIONS, OVER 4 01/25/20 22 74771-MQFS SKIN LESIONS, OVER 4 10/23/19 22 93979-YZSN SKIN LESIONS, OVER 4 04/27/19 21 83081-PVFW SKIN LESIONS, OVER 4 01/20/20 20 Next Appt Details Provider Name:Jimmy Baez , 04/14/2025 01:45:00 PM, [address] [facility], [place], [address], Insurance Providers Payer Name Payer Address Payer Phone Subscriber Number Group Number Insured Name Patient Relationship to Insured Coverage Start Date Coverage End Date [employer] [place] Medicare Advantage One [facility] [address] [place] [address] [id number] Tito Roque Self - patient is the insured Medical (General) History Medical History History ICD Code Arthritis Back,Hip,and Knee pain CAD (Cholesterol) Chicken pox Measles Joint implants/screws Heart valve conditions/replacement Thyroid Surgical History Surgery Date(Month/Year) brain surgery Heart stent -2 Hospitalization History Reason Date(Month/Year) [facility] -Fall 2019 [facility] -GI Problems 03/2020
== END 2024-12-27 14:22 | disposition home or self-care (01) ==
LOC: HO.HMCH 13:59
PROVIDERS: Visit Provider Internal Medicine
DX: Z23 Encounter for immunization (principal); R29.6 Repeated falls

== ENCOUNTER → 2024-12-27 13:58 | Outpatient (BNVA) | payer MEDICARE, SELFPAY | PROVIDERS: Visit Provider Internal Medicine | DX: R29.6 Repeated falls (principal); Z23 Encounter for immunization; Z13.31 Encounter for screening for depression | CPT/HCPCS: 90471; 90656; 99212 ==

== ENCOUNTER 2025-02-13 11:51 | Outpatient (REF) | payer MEDICARE, SELFPAY ==
[2025-02-13 12:28] LABS: Hematocrit 42.1 % (42.0-52.0); Hemoglobin 13.8 g/dl (14.0-18.0)
[2025-02-13 14:37] LABS: Prostate Specific Antigen 0.43 ng/mL (<0.05-4.0)
[2025-02-13 14:52] LABS: Free T4 (Free Thyroxine) 1.58 ng/dL (0.71-1.85); Thyroid Stimulating Hormone 0.17 uIU/mL (0.32-4.0)
--- OUTSIDE RECORDS SUMMARY | 2025-02-13 15:50 | XMS_ITS | Clinical Summary ---
Author Organization [facility] Address [address] [place] [address] Phone Care Team Providers Care Cutlet Maker Pork Name Role Phone Spenser Salamanca MD Primary Care Provider [phone] Social History Tobacco Use Types Packs/Day Years [...] [place] [employer]ACEMENT Care Teams Cutlet Maker Pork Relationship Specialty Start Date End Date Spenser Salamanca MD [address] [place] [address] [place] [phone] (work) PCP - General Internal Medicine 04/08/19 Additional Source Comments The information contained in this document represents components of the legal health record. It is not the complete legal health record.[facility]
--- OUTSIDE RECORDS SUMMARY | 2025-02-13 15:50 | XMS_ITS | Data Portability ---
Author Organization [facility], Main Office Address [address] [facility], [address] [place] [address] Assessment No assessment recorded. Plan of Treatment Reminders Order Date Submit Date Provider Last Modified By Organization Details Last Modified Time Details Appointments None record ed. Lab None record ed. Referral None record ed. Procedures None record ed. Surgeries None record ed. Imaging None record ed. Medication Orders None record ed. Patient TargetsNo targets recorded. Patient InstructionsNo instructions recorded. Reason for Referral None Reported. Problems Name Problem SNOMED Code Status Onset Date Resolution Date Notes Provider Name and Address Organization Details Recorded Time Closed fracture of multiple ribs 09451105 Active 2018 CAROL Guidry [address] [facility], [place] [address], [place], [address], [facility] 9 14:50:44 History of syncope 5335603348172 09 Active 2018 CAROL Guidry [address] [facility], [address] [facility], [place], [address], [facility] 9 14:50:58 Chronic kidney disease stage 3 358883400 Active 2018 CAROL Guidry [address] [facility], [address], [place], [address], [facility] 9 14:51:07 Gastroesoph ageal reflux disease without esophagitis 816393704 Active 2018 CAROL Guidry [address] [facility], [facility] [address], [place], [address], [facility] 9 14:51:19 Adrenal cortical hypofunctio n 489744337 Active 2018 CAROL Guidry [address] [facility], [address], [place], [address], [facility] 9 14:51:57 Benign neoplasm of brain 43661109 Active 2018 CAROL Guidry [address] [facility], [address], [place], [address], [facility] [employer] [facility] 9 14:52:21 Mixed hyperlipide jenaro 726272313 Active 2018 CAROL Guidry [address] [facility], [address], [place], [address], [facility] [employer] 9 14:58:32 Hypothyroid ism 80639098 Active 2018 CAROL Guidry [address] [facility], [address], [place], [address], [employer] 9 14:58:39 Closed fracture of clavicle 59729151 Active 2018 Maryellen Harman MD [address] [facility], [address], [place], [address], [employer] 9 12:03:27 Prolonged QT interval 438936283 Active 2018 Maryellen Harman MD [address] [facility], [address], [place], [address], [employer] 9 12:37:12 Problem Notes None recorded. Medical Equipment None Reported. Allergies Allergen ID Allergen Name Allergen Category Reaction Reaction Severity Criticality Documentation Date Start Date Code Code System Note Provider Name and Address Organization Details Recorded Time 68213 Toprol medicatio n Not available Not available Not available 04/17/2018 66212 5 RxNorm CAROL Guidry [address] [facility], [address], [place], [address], [employer] 9 14:49:09 Medications Not known to be on any medication Vitals Date Recorded Heart rate Respiratory rate Body temperature Systolic And Diastolic Provider Name and Address Organization Details Last Updated DateTime 04/17/2018 61 /min 20 /min 98.6 [degF] 167/82 mm[Hg] CAROL Guidry [address] [facility], [address], [place], [address], [employer] 9 14:49:03 Date Recorded Heart rate Respiratory rate Body temperature Systolic And Diastolic Provider Name and Address Organization Details Last Updated DateTime 04/27/2018 50 /min 18 /min 97.7 [degF] 162/69 mm[Hg] CAROL Guidry [address] [facility], [address], [place], [address], [facility] 9 14:42:29 Date Recorded Systolic And Diastolic Provider Name and Address Organization Details Last Updated DateTime 04/28/2018 168/65 mm[Hg] Maryellen Harman MD [address] [facility], [facility] [address], [place], [address], [facility] 04/28/2018 10:59:26 Social History Question Answer Notes LastModified by Organizat ion Details LastModified Time Tobacco Smoking Status Never Smoker Not Available [facility] 01/17/2020 03:13:20 Do You Have An Advance Directive? No [id number] Information not available 01/17/2020 How Much Tobacco Do You Chew? None [id number] Information not available 01/17/2020 Do You Have A Medical Power Of Dyeing Machine Feeder? No [id number] Information not available 01/17/2020 What Was The Date Of Your Most Recent Tobacco Screening? 04/27/2018 [id number] Information not available 01/17/2020 Sex: Unknown Functional Status Question Answer Note LastModified by Organization D etails LastModified Time What is your level of alcohol consumption? None [id number] Information not available 01/17/2020 Mental Status None recorded. Family History Nothing Reported Notes:N/C Medical History No medical history recorded. Past Encounters Encounter ID Performer Location Encounter Start Date Encounter Closed Date Diagnosis/Indication Diagnosis SNOMED-CT Code Diagnosis ICD10 Code Diagnosis IMO Codes Diagnosis Note [id number] CAROL Guidry [place] AT [address] [address] 04/17/2018 14:35:09 04/28/2018 09:08:05 Closed fracture of multiple ribs 08355052 S22.41XD see hpihas prn tylenol, oxycodone for paingabape ntin 100 mg q 12 hrsibuprof en 400 mg q 8 hrs prnmonitor pain relief, bowelshepa rin 5,000 tid till more ambulatory History of syncope 82469 83634 54591 Z86.79 f/u with cardiology and neurology to further assess causes of syncope as out pt Chronic ki dney disease stage 3 938374457 N18.3 avoid nephrotoxi c meds as ablemonito r renal functionne phrologist prn Gastroesop hageal reflux disease without esophagitis 176912650 K21.9 protonix 20 mg qdmonitor for sx relief Adrenal co rtical hypofunction 939693935 E27.40 hydrocorti sone 10 mg bidf/u with endo Benign sole plasm of brain 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 Avoid heavy weight lifting on that side for 4-6 weeks; fu ortho as recommende d Gastroesop hageal reflux disease without esophagitis 844631560 K21.9 stable on pantoprazo le 20 mg daily; will continue to monitor Mixed hyperlipidemia 267 694581 E78.2 on rosuvastat in 20 mg daily without side effects Hypothyroidism 17376719 E03.8 on levothyrox ine 100 mcg daily; will continue to monitor Adrenal co rtical hypofunction 337405880 E27.49 on hydrocorti sone 10 mg in morning and 5 mg; will monitor Chronic ki dney disease stage 3 629941990 N18.3 stable; will mnonitor Prolonged QT interval 11 8559251 I45.81 avoid medication s that prolong QT interval - for cardiology fu History of syncope 05429 69471 50650 Z86.79 has had EEG unremarkab le, echo with reduced EF and hypokinesi s, ACS r/o'd, EKG with prolonged QT interval; no etiology determined - for cardiology fu soon to consider event monitor [id number] CAROL Guidry AT [address] [address] 04/27/2018 14:41:43 05/04/2018 15:25:50 Closed fracture of multiple ribs 55791135 S22.41XD has prn tylenol, oxycodone for paingabape ntin 100 mg q 12 hrsibuprof en 400 mg q 8 hrs prnmonitor pain relief, bowelsdc heparininc rease senna to 8.6 mg 2 qhsschedul e miralax 17 grams qd History of syncope 25509 57733 47329 Z86.79 f/u with cardiology and neurology to further assess causes of syncope as out pt Chronic ki dney disease stage 3 437311848 N18.3 avoid nephrotoxi c meds as ablemonito r renal functionne phrologist prn Gastroesop hageal reflux disease without esophagitis 094382335 K21.9 protonix 20 mg qdmonitor for sx relief Adrenal co rtical hypofunction 639496704 E27.40 hydrocorti sone 10 mg bidf/u with endo Hypothyroidism 58300717 E03.9 [place] [id number] MD [facility] [place] [facility] [address] [address] 04/28/2018 10:43:38 05/05/2018 09:20:04 Essential hypertension 27396357 I10 stable on present regimen at this time. For continuted monitoring as outpatient . Closed fra cture of multiple ribs 81200199 S22.42XD pain management includes acetaminop hen prn, gabapentin 100 mg bid, ibuprofen prn, oxycodone prn. Recommend consider outpatient PT and OT to continue to support gait stability and ADL independen ce. Closed fra cture of clavicle 16819019 S42.002D per ortho: sling for comfort; when pain free, no restrictio ns for motion and may come out of sling. Avoid heavy weight lifting on that side for 4-6 weeks; fu ortho as recommende d Prolonged QT interval 11 3380052 I45.81 avoid medication s that prolong QT interval - for cardiology fu Adrenal co rtical hypofunction 512179234 E27.49 on hydrocorti sone 10 mg in morning and 5 mg; recommend continue monitor and taper as possible Hypothyroidism 43459691 E03.8 on levothyrox ine 100 mcg daily; continue to monitor TSH as outpatient Chronic ki dney disease stage 3 696444882 N18.3 stable; continue to monitor as outpatient History of syncope 58586 [address]150 54689 Z86.79 has had EEG unremarkab le, echo with reduced EF and hypokinesi s, ACS r/o'd, EKG with prolonged QT interval; no etiology determined - for cardiology fu soon to consider event monitor Health Concerns Section Related Observation LastModified by Organization Detai ls LastModified Time None Recorded Concern Status LastModified by Organization Details LastModified Time None Recorded Advance Directives Directive N: Payers Insurance Date Sequence Insurance Name Policy Number Policy Urias Covered Member ID Urias Member ID Guarantor Name 04/28/2018 1 [employer] [place] - MEDICARE ADVANTAGE PLAN (MEDICARE REPLACEMENT HMO) Tito Roque [id number] Tito Roque Notes Date Note Type Note Provider Name and Address Organization Details Recorded Time 04/17/2018 text/html 73 yo male seen for initial intake note. pt admitted from [facility] [place]/p fall with multiple rib fractures bilateral and clavicle fracture. he had been to ED earlier in the month for syncope. no syncopal causes were identified. recommend further workup as out pt with neurologist and machine welder. pmhx of benign brain tumor with excision, adrenal insufficiency -sees endo for this, ckd3, gerd.admitted for continue care and rehab. CAROL Guidry [address] [facility], [address], [place], [address], [facility] 04/17/2018 15:05:44 04/21/2018 text/html ROS as noted in the HPI 73 yo man with PMH of CKD, CAD, s/p PCI, GERD, secondary adrenal insuffficiency, bran tumor s/p resection - who presented to [facility] ER 04/14/18 after fall. witnessed him falling backwards off a counter and landed on his left side. He was initially confused with significant chest and flank tenderness. Imaging demonstrated multiple bilateral rib fractures, right clavicular head fracture, and T2 transverse process fracture. Patient was transferred to SICU when he became confused and hypotensive after IV narcotics. He responded well to IV fluids. 2 weeks prior to this fall, patient was at [facility] for a syncopal episode. He was observed. Evaluation included echo showing: EF 35-40% with severe hypokinesis of mid distal anterior wall, mid distal inferolateral wall, and mid distal inferior wall. Septal hypertrophy and mildly dilated aortic root also noted. EEG was nonrevealing. ACS was ruled out. No syncope since that time. EKG showed no acute changes but a prolonged QTC was noted. Seizure still possibility as etiology of syncope as well as arrhythmia. Event monitor may be considered. Meds which prolong QTC will be avoided. Maryellen Harman MD [address] [facility], [address], [place], [address], [employer] 04/21/2018 12:48:56 04/27/2018 text/html 73 yo male seen for acute rounding visit. pt admitted from [facility] s/p fall with multiple rib fractures bilateral and clavicle fracture. he had been to ED earlier in the month for syncope. no syncopal causes were identified. recommend further workup as out pt with neurologist and machine welder. pmhx of benign brain tumor with excision, adrenal insufficiency -sees endo for this, ckd3, gerd.pt seen today to assess for mobility. he has been on heparin till more ambulatory and he is now walking everywhere with a cane, taking walks in the PM up and down the prabhakar. is having some trouble with constipation. otherwise no concerns per nursing. CAROL Guidry [address] [facility], [address], [place], [address], [employer] [facility] 04/27/2018 14:48:16 04/28/2018 text/html ROS as noted in the HPI 73 yo man admitted 04/17/18. Seen today in preparation for discharge. Hx PMH of CKD, CAD, s/p PCI, GERD, secondary adrenal insuffficiency, bran tumor s/p resection - who presented to [facility] ER 04/14/18 after fall. witnessed him falling backwards off a counter and landed on his left side. He was initially confused with significant chest and flank tenderness. Imaging demonstrated multiple bilateral rib fractures, right clavicular head fracture, and T2 transverse process fracture. Patient was transferred to SICU when he became confused and hypotensive after IV narcotics. He responded well to IV fluids. 2 weeks prior to this fall, patient was at [facility] for a syncopal episode. He was observed. Evaluation included echo showing: EF 35-40% with severe hypokinesis of mid distal anterior wall, mid distal inferolateral wall, and mid distal inferior wall. Septal hypertrophy and mildly dilated aortic root also noted. EEG was nonrevealing. ACS was ruled out. No syncope since that time. EKG showed no acute changes but a prolonged QTC was noted. Seizure still possibility as etiology of syncope as well as arrhythmia. Event monitor may be considered. Meds which prolong QTC will be avoided. Has done well with PT and OT. Uses sling when ambulating. Uses cane. Maryellen Harman MD [address] [place] [address], [address], [place], [address], [facility] [employer] 04/28/2018 11:03:55
--- OUTSIDE RECORDS SUMMARY | 2025-02-13 15:50 | XMS_ITS | Encounter Summary ---
Author Organization [facility] Address [address] [place] [id number] Phone Care Team Providers Care Manager Laboratory Name Role Phone Unknown, Unknown Primary Care Provider Spenser Vincent MD Primary Care Provider [phone] Encounter Details Date Type Department Care Team (Latest Contact Info) Description 04/27/2018 Transcribe Orders [facility] Specimen Processing [address] [place] [address] Abel De Anda MD 38 [facility] [address], [address] [place] [address] [email or web address] Hyperlipidemia, unspecified hyperlipidemia type (Primary Dx); Gastroesophageal reflux disease, esophagitis presence not specified; Chronic kidney disease, unspecified CKD stage; Coronary artery disease, angina presence unspecified, unspecified vessel or lesion type, unspecified whether stebbins or transplanted heart Social History Tobacco Use [...] EST) SODIUM 142 133 - 146 mmol/L [facility] CHLORIDE 105 96 - 108 mmol/L [facility] POTASSIUM 3.7 3.3 - 5.1 mmol/L [facility] CO2 24 21 - 35 mmol/L [facility] BUN 15 6 - 19 mg/dL [facility] CREATININE 1.10 0.5 - 1.5 mg/dL [facility] GLUCOSE 79 70 - 99 mg/dL [facility] CALCIUM 8.5 8.4 - 10.3 mg/dL [facility] EGFR 67 >59 mL/min/1.7 3m2 [facility] Comment:If patient is black, multiply result by 1.159. Estimated glomerular filtration rate calculated using the CKD-EPI equation. ANION GAP 17 10 - 20 mmol/L [facility] Blood 04/27/2018 5:20 AM EST 04/27/2018 8:18 AM EST us Abel De Anda MD LAB BLOOD BKR ORDERABLES Final R esult [address] [address] * (ABNORMAL) CBC (04/27/2018 5:20 AM EST) WBC 7.05 3.40 - 11.20 K/uL [facility] RBC 3.94(L) 4.50 - 5.50 M/uL [facility] HGB 11.6(L) 13.0 - 17.0 g/dL [facility] HCT 34.9(L) 40.0 - 51.0 % [facility] PLT 348 130 - 400 K/uL [facility] MCV 88.6 79.0 - 98.0 fL [facility] MCH 29.4 27.0 - 34.8 pg [facility] MCHC 33.2 31.5 - 36.0 g/dL [facility] RDW 14.7(H) 10.8 - 14.6 % [facility] MPV 11.0 9.4 - 12.4 fl [facility] NRBC 0.00 0.00 /100 WBCs [facility] ABSOLUTE NRBC 0.00 0.00 K/uL [facility] Blood 04/27/2018 5:20 AM EST 04/27/2018 8:18 AM EST us Abel De Anda MD LAB BLOOD BKR ORDERABLES Final R esult [address] [address] documented in this encounter Visit Diagnoses Diagnosis Hyperlipidemia, unspecified hyperlipidemia type- Primary Gastroesophageal reflux disease, esophagitis presence not specified Chronic kidney disease, unspecified CKD stage Coronary artery disease, angina presence unspecified, unspecified vessel or lesion type, unspecified whether stebbins or transplanted heart documented in this encounter Care Teams Manager Laboratory Relationship Specialty Start Date End Date Unknown, Unknown, MD PCP - General 04/19/18 04/07/19 Spenser Salamanca MD [address] [place] [address] Dr Miller [address] [place] [id number] PCP - General Internal Medicine 04/08/19 documented as of this encounter Additional Source Comments The information contained in this document represents components of the legal health record. It is not the complete legal health record.[facility]
[2025-02-18 16:54] LABS: Testosterone, Free 94.8 pg/mL (30.0-135.0)
== END 2025-02-13 11:52 | disposition home or self-care (01) ==
LOC: HO.LAB 11:51
PROVIDERS: Visit Provider Internal Medicine Endocrinology, Diabetes & Metabolism
DX: E23.0 Hypopituitarism (principal); Z12.5 Encounter for screening for malignant neoplasm of prostate; Z13.0 Encounter for screening for diseases of the blood and blood-forming organs and certain disorders involving the immune mechanism
CPT/HCPCS: 36415; 84153; 84402; 84403; 84439; 84443; 85014; 85018